=== PATIENT | male | born 1940 | race Caucasian/White ===

== ENCOUNTER 2016-11-17 | Outpatient (CLI) | payer MEDICARE, OTHER | END 2016-11-17 20:47 | disposition critical access hospital (66) | DX: R53.1 Weakness (principal) | CPT/HCPCS: A0425; A0427 ==

== ENCOUNTER 2016-11-17 20:56 | Emergency (ER) | payer MEDICARE, OTHER ==
[2016-11-17] MEDS ORDERED: SODIUM CHLORIDE 0.9% 1,000 ML IV ONE (21:15)
[2016-11-17] MEDS ORDERED: cefTRIAXone 1 GM in SODIUM CHLORIDE 0.9% MINIBAG 100 ML IV STA (23:06)
[2016-11-17] MEDS ORDERED: DEXAMETHASONE 10 MG/ML VIAL IVP STA (23:06)
[2016-11-17] MEDS ORDERED: ceFAZolin 1 GM VIAL ONE (23:17)
[2016-11-17] MEDS ORDERED: DEXAMETHASONE 10 MG/ML VIAL ONE (23:17)
[2016-11-17] MEDS ORDERED: cefTRIAXone 1 GM VIAL ONE (23:19)
== END 2016-11-18 00:59 | disposition home or self-care (01) ==
DX: E86.0 Dehydration (principal); H66.90 Otitis media, unspecified, unspecified ear; I10 Essential (primary) hypertension; E78.00 Pure hypercholesterolemia, unspecified; I25.10 Atherosclerotic heart disease of native coronary artery without angina pectoris

== ENCOUNTER 2017-03-20 09:28 | Outpatient (CLI) | payer MEDICARE, OTHER | END 2017-03-20 09:29 | disposition home or self-care (01) | LOC: LAB.WCP 09:28 | PROVIDERS: ATTEND Physician Assistant | DX: R39.9 Unspecified symptoms and signs involving the genitourinary system (principal) | CPT/HCPCS: 36415; 84153 ==

== ENCOUNTER 2017-07-07 09:03 | Outpatient (CLI) | payer MEDICARE, OTHER ==
[2017-07-07 14:13] LABS: BILIRUBIN,URINE NEGATIVE (NEGATIVE)
[2017-07-07 14:34] LABS: BASOPHILS % (AUTO) 0.4 %; EOSINOPHILS % (AUTO) 7.3 %; HCT - HEMATOCRIT 41.5 % (42.0-52.0); LYMPHOCYTES % (AUTO) 13.1 %; MEAN CORPUSCULAR HEMOGLOBIN 29.5 pg (27.0-31.0); MEAN CORPUSCULAR HGB CONC 33.6 g/dL (32.0-36.0); MEAN CORPUSCULAR VOLUME 87.8 fL (80.0-94.0); MEAN PLATELET VOLUME 9.8 fL (7.4-11.4); MONOCYTES % (AUTO) 8.2 %; RED BLOOD COUNT 4.73 10^6/uL (4.70-6.10); RED CELL DISTRIBUTION WIDTH 13.4 % (12.0-15.0); UNCORRECTED WHITE BLOOD COUNT 7.3 x10^3/uL; WHITE BLOOD COUNT 7.3 x10^3/uL (4.8-10.8)
[2017-07-07 14:40] LABS: BAND NEUTROPHILS % (MANUAL) 0 %
[2017-07-07 14:46] LABS: UR CULTURE IF IND NOT INDICATED; WBC,URINE 0-3 /HPF (0-3)
[2017-07-07 15:59] LABS: BASOPHILS % (MANUAL) 2 %; EOSINOPHILS % (MANUAL) 8 %; LYMPHOCYTES % (MANUAL) 13 %; NEUTROPHILS % (MANUAL) 73 %; NP AUTO DIFFERENTIAL? YES; NP MAN DIFFERENTIAL? NO; PLATELET ESTIMATE, MANUAL NORMAL (130-450,000) (NORMAL); PLATELET MORPHOLOGY NORMAL APPEARANCE (NORMAL); TOTAL CELLS COUNTED 100
[2017-07-07 17:03] LABS: ALBUMIN/GLOBULIN RATIO 1.6 (1.0-2.2); BILIRUBIN,TOTAL 0.9 mg/dL (0.2-1.0); CALCIUM 9.3 mg/dL (8.5-10.3); CREATININE 0.8 mg/dL (0.6-1.2); POTASSIUM 4.2 mmol/L (3.5-5.0)
== END 2017-07-07 09:04 | disposition home or self-care (01) ==
LOC: LAB.WCP 09:03
PROVIDERS: ATTEND Family Medicine
DX: R10.32 Left lower quadrant pain (principal); M54.9 Dorsalgia, unspecified
CPT/HCPCS: 36415; 80053; 81001; 83690; 85025; 87086

== ENCOUNTER 2017-07-14 07:35 | Outpatient (CLI) | payer MEDICARE, OTHER ==
[~2017-07-14 07:35] MED LIST: IOPAMIDOL-300 100 ML VIAL ONE; IOPAMIDOL-300 50 ML VIAL ONE
[2017-07-14] MEDS ORDERED: IOPAMIDOL-300 50 ML VIAL PO ONE (07:47)
[2017-07-14] MEDS ORDERED: IOPAMIDOL-300 100 ML VIAL IVP ONE (07:48)
--- NOTE | 2017-07-14 11:41 | CT Report ---
CT OF THE ABDOMEN AND PELVIS WITH CONTRAST: 07/14/2017 CLINICAL INDICATION: Chronic back pain, abdominal pain. TECHNIQUE: Axial CT images of the abdomen and pelvis were obtained with 100 mL of Isovue-300 intravenously as well as oral contrast. FINDINGS: Limited evaluation of the lung bases is unremarkable. ABDOMEN: The liver, spleen, pancreas, kidneys and adrenal glands are unremarkable. There is a small sliding hiatal hernia present. The gallbladder is not dilated. No bowel dilatation, free gas, or free fluid is present. No abdominal adenopathy is present. PELVIS: The pelvic organs appear unremarkable. No pelvic adenopathy or free fluid is present. There is a spinal stimulator pack in the posterior right soft tissues. The osseous structures demonstrate degenerative and postsurgical changes. IMPRESSION: NO EVIDENT ETIOLOGY FOR PATIENT'S ABDOMINAL PAIN. In accordance with CT protocol optimization, one or more of the following dose reduction techniques were utilized for this exam: automated exposure control, adjustment of mA and/or KV based on patient size, or use of iterative reconstructive technique. JOB #: [id number] EXT JOB #: [id number] [facility]
--- NOTE | 2017-07-14 11:41 | CT Report ---
CT LUMBAR SPINE WITHOUT CONTRAST: 07/14/2017 INDICATION: Chronic low back pain. TECHNIQUE: Axial CT images of the lumbar spine were reconstructed from CT of the abdomen and pelvis of the same day, with sagittal, coronal, and axial small field of view reconstructions performed. No previous CT of the lumbar spine is available for comparison. FINDINGS: The lumbar vertebral bodies demonstrate degenerative disk and facet disease, with degenera tive retrolisthesis of L2 on L3 by approximately 2 mm, L3 on L4 by approximately 2 mm. There is no e vidence of compression fracture. Postoperative changes are present at L5 posteriorly. The T12-L1 disk is unremarkable. At L1-2, there is broad-based disk and osteophyte, without significant spinal or foraminal narrowing. At L2-3, there is broad-based disc osteophyte, asymmetric to the right, producing right greater than left foraminal narrowing and moderate spinal stenosis. At L3-4, there is large broad-based disk osteophyte and facet hypertrophy, producing bilateral forami nal narrowing and moderate spinal stenosis. At L4-5, there is broad-based disc osteophyte and facet hypertrophy, producing bilateral foraminal na rrowing and moderate spinal stenosis. At L5-S1, there are postoperative changes of posterior decompression. Right worse than left foramina l narrowing is present, secondary to disk osteophyte. IMPRESSION: DEGENERATIVE CHANGES ABOVE. NO EVIDENCE OF FRACTURE. POSTOPERATIVE CHANGES AT L5-S1 . In accordance with CT protocol optimization, one or more of the following dose reduction techniques w ere utilized for this exam: automated exposure control, adjustment of mA and/or KV based on patient size, or use of iterative reconstructive technique. JOB #: [id number] EXT JOB #:[id number]
== END 2017-07-14 07:36 | disposition home or self-care (01) ==
LOC: DI 07:35
PROVIDERS: ATTEND Family Medicine
DX: M51.36 Other intervertebral disc degeneration, lumbar region (principal); M47.896 Other spondylosis, lumbar region; M43.16 Spondylolisthesis, lumbar region; R10.32 Left lower quadrant pain
CPT/HCPCS: 72131; 74177; Q9967

== ENCOUNTER 2017-08-13 09:04 | Outpatient (CLI) | payer MEDICARE, OTHER ==
[2017-08-13 13:03] LABS: ALBUMIN/GLOBULIN RATIO 1.6 (1.0-2.2); BILIRUBIN,TOTAL 0.7 mg/dL (0.2-1.0); CALCIUM 9.5 mg/dL (8.5-10.3); CREATININE 0.8 mg/dL (0.6-1.2); TOTAL PROTEIN 7.2 g/dL (6.7-8.2)
[2017-08-13 14:18] LABS: THYROID STIMULATING HORMONE 2.26 uIU/mL (0.34-5.60)
== END 2017-08-13 09:05 | disposition home or self-care (01) ==
LOC: LAB.WCP 09:04
PROVIDERS: ATTEND Family Medicine
DX: R73.01 Impaired fasting glucose (principal); I10 Essential (primary) hypertension; E03.9 Hypothyroidism, unspecified; M54.5 Low back pain
CPT/HCPCS: 36415; 80053; 82607; 84443

== ENCOUNTER 2017-09-23 14:10 | Emergency (ER) | payer MEDICARE, OTHER ==
--- NOTE | 2017-09-23 14:18 | ED Physician Documentation ---
PD HPI CHEST PAIN - Stated complaint Stated Complaint: CHEST PX - History obtained from History obtained from: Patient - History of Present Illness Timing - onset: How many weeks ago (3 weeks of progressively worsening symptoms with exertion and then easier fatigue and chest pressure with more minimal activity. Today with chest pressure at rest.) Timing - onset during: Rest (today), Light activity (for 3 weeks, progressively) Timing - duration: Minutes (discomfort has been resolving within few minutes of rest. Today the pressure remained after rest and has recurred even while resting.) Timing - details: Gradual onset, Still present, Intermittant Quality: Pressure, Tightness. No: Sharp, Tearing, Stabbing Location: Left chest Radiation: Left upper extremity Improved by: Rest Worsened by: Exertion Associated symptoms: General Weakness. No: Shortness of air, Diaphoresis, Nausea, Feeling faint / dizzy, Palpitations Similar symptoms before: Has not had sx before Recently seen: Not recently seen Review of Systems Constitutional: denies: Fever, Chills Nose: denies: Rhinorrhea / runny nose, Congestion Throat: denies: Sore throat Cardiac: reports: Chest pain / pressure, Pedal edema (mild ongoing). denies: Palpitations, Calf pain Respiratory: denies: Dyspnea, Cough, Wheezing GI: denies: Abdominal Pain, Nausea, Vomiting, Bloody / black stool : denies: Dysuria, Frequency Skin: denies: Rash, Lesions Neurologic: denies: Generalized weakness, Focal weakness, Numbness, Near syncope , Altered mental status Psychiatric: denies: Depressed, Insomnia Endocrine: denies: Weight loss, Easy bruising / bleeding Immunocompromised: denies: Immunocompromised PD PAST MEDICAL HISTORY - Past Medical History Cardiovascular: Hypertension, High cholesterol, Coronary artery disease Respiratory: Sleep apnea, CPAP use Neuro: None Endocrine/Autoimmune: HyPOthyroidism GI: GI bleed : None HEENT: None Psych: None Musculoskeletal: Chronic back pain Derm: None - Past Surgical History General: Colonoscopy Ortho: Knee replacement Neuro: Other - Present Medications Home Medications: Ambulatory Orders Medication Instructions Recorded Confirmed Atorvastatin Calcium 20 mg PO DAILY 02/19/13 09/23/17 Fluoxetine HCl 40 mg PO DAILY 02/19/13 09/23/17 Levothyroxine Sodium [Synthroid] 100 mcg PO DAILY 02/19/13 09/23/17 Losartan [Cozaar] 100 mg PO DAILY 02/19/13 09/23/17 Metoprolol Succinate [Toprol Xl] 50 mg PO BID 02/19/13 09/23/17 Felodipine [Plendil] 2.5 mg PO DAILY 08/04/13 09/23/17 Meloxicam 15 mg PO DAILY 08/22/17 09/23/17 Tamsulosin [Flomax] 0.4 mg PO DAILY 08/22/17 09/23/17 Sildenafil Citrate [Viagra] 1 tab PO PRN PRN 09/23/17 09/23/17 - Allergies Allergies/Adverse Reactions: Allergies Allergy/AdvReac Type Severity Reaction Status Date / Time No Known Drug Allergies Allergy Verified 12/24/15 16:18 - Living Situation Living Situation: reports: With spouse/s.o. Living Arrangement: reports: At home - Social History Does the pt smoke?: No Smoking Status: Never smoker Does the pt drink ETOH?: No Does the pt have substance abuse?: No - Family History Family history: denies: Aortic aneursym, Aortic dissection - Immunizations Immunizations are current?: Yes PD ED PE NORMAL - Vitals Vital signs reviewed: Yes - General General: Alert and oriented X 3, No acute distress, Well developed/nourished - HEENT HEENT: Moist mucous membranes, Pharynx benign - Neck Neck: Supple, no meningeal sign, No adenopathy, No JVD - Cardiac Cardiac: RRR, No murmur - Respiratory Respiratory: Clear bilaterally, Other (no chestwall tenderness) - Abdomen Abdomen: Soft, Non tender - Back Back: No CVA TTP - Derm Derm: Normal color, Warm and dry, No rash - Extremities Extremities: No deformity, No tenderness to palpate, Normal ROM s pain, No calf tenderness / cord, Other (1+ edema in both lower legs) - Neuro Neuro: Alert and oriented X 3, No motor deficit, Normal speech - Psych Psych: Normal mood, Normal affect Results - Vitals Vitals: Vital Signs - 24 hr 09/23/17 09/23/17 09/23/17 14:16 15:15 15:16 Temperature 36.4 C L Heart Rate 58 L 58 L 61 Respiratory 18 20 14 Rate Blood Pressure 141/71 H 133/73 H O2 Saturation 98 96 97 09/23/17 09/23/17 15:21 16:08 Temperature Heart Rate 60 58 L Respiratory 14 15 Rate Blood Pressure 113/75 118/87 H O2 Saturation 97 99 Oxygen O2 Source Room air - EKG (time done) 14:19 Rate: Rate (enter#) (56) Rhythm: Sinus bradycardia [place]: Normal Intervals: Normal MO QRS: Poor R wave progression Ischemia: Normal ST segments. No: ST elevation c/w ischemia, ST depression, T wave inversion - Labs Labs: Laboratory Tests 09/23/17 09/23/17 09/23/17 14:20 14:20 14:20 WBC 8.9 RBC 4.59 L Hgb 13.9 L Hct 40.5 L MCV 88.1 MCH 30.2 MCHC 34.3 RDW 12.9 Plt Count 204 MPV 9.2 Neut # 6.6 Lymph # 1.3 L [place] # 0.6 Eos # 0.4 Baso # 0.0 Absolute Nucleated RBC 0.00 Nucleated RBC % 0.0 Sodium 137 Potassium 4.4 Chloride 100 L Carbon Dioxide 26 Anion Gap 11.0 BUN 25 H Creatinine 0.8 Estimated GFR (MDRD) 94 Glucose 84 Calcium 9.6 Magnesium 1.6 L Total Bilirubin 0.7 AST 27 ALT 24 Alkaline Phosphatase 53 Troponin I < 0.04 B-Natriuretic Peptide Total Protein 7.3 Albumin 4.4 Globulin 2.9 Albumin/Globulin Ratio 1.5 Lipase 22 09/23/17 14:20 WBC RBC Hgb Hct MCV MCH MCHC RDW Plt Count MPV Neut # Lymph # [place] # Eos # Baso # Absolute Nucleated RBC Nucleated RBC % Sodium Potassium Chloride Carbon Dioxide Anion Gap BUN Creatinine Estimated GFR (MDRD) Glucose Calcium Magnesium Total Bilirubin AST ALT Alkaline Phosphatase Troponin I B-Natriuretic Peptide 44 Total Protein Albumin Globulin Albumin/Globulin Ratio Lipase - Rads (name of study) chest Radiology: Prelim report reviewed, EMP read contemporaneously (no acute process noted on xray.) PD MEDICAL DECISION MAKING - ED course Complexity details: reviewed results, re-evaluated patient (chest pressure resolved with NTG. ), considered differential (His symptoms sound very concerning for crescendo angina with now rest angina. His EKG does not show ischemic changes and his troponin is negative. However he is having progressive symptoms and now rest angina. We will treated as unstable angina with nitrates, heparin, aspirin. His heart rate is 56 and his blood pressure is reasonable so he does not need more beta blockers at this time. I think he needs cardiology assessment and will look at transferring him to an appropriate facility. The patient is agreeable to this.), d/w patient, d/w reservoir engineering consultant ( [facility] not [facility] beds available and these were patients first choices. He is agreeable to [facility]. [facility] do have beds available and I talked to Carla Nunez, provider there who accepts transfer. She agrees with current treatments.) Departure - Departure Condition: Stable Record reviewed to determine appropriate education?: Yes
[2017-09-23] MEDS ORDERED: ASPIRIN CHEW 81 MG TABLET PO STA ×2 (14:45→14:56)
[2017-09-23] MEDS ORDERED: NITROGLYCERIN 2% PASTE TOP STA (14:56)
[2017-09-23] MEDS ORDERED: NITROGLYCERIN SL 0.4 MG TABLET SL STA (14:56)
[2017-09-23] MEDS ORDERED: ACETAMINOPHEN 325 MG TABLET PO STA (14:57)
[2017-09-23 15:03] LABS: BASOPHILS % (AUTO) 0.5 %; EOSINOPHILS # (AUTO) 0.4 10^3/uL (0.0-0.7); EOSINOPHILS % (AUTO) 4.4 %; HCT - HEMATOCRIT 40.5 % (42.0-52.0); HGB - HEMOGLOBIN 13.9 g/dL (14.0-18.0); LYMPHOCYTES # (AUTO) 1.3 10^3/uL (1.5-3.5); LYMPHOCYTES % (AUTO) 14.3 %; MEAN CORPUSCULAR HEMOGLOBIN 30.2 pg (27.0-31.0); MEAN CORPUSCULAR HGB CONC 34.3 g/dL (32.0-36.0); MEAN CORPUSCULAR VOLUME 88.1 fL (80.0-94.0); MEAN PLATELET VOLUME 9.2 fL (7.4-11.4); MONOCYTES # (AUTO) 0.6 10^3/uL (0.0-1.0); MONOCYTES % (AUTO) 6.9 %; NEUTROPHILS # (AUTO) 6.6 10^3/uL (1.5-6.6); NEUTROPHILS % (AUTO) 73.9 %; RED BLOOD COUNT 4.59 10^6/uL (4.70-6.10); RED CELL DISTRIBUTION WIDTH 12.9 % (12.0-15.0); UNCORRECTED WHITE BLOOD COUNT 8.9 x10^3/uL; WHITE BLOOD COUNT 8.9 x10^3/uL (4.8-10.8)
[2017-09-23 15:13] LABS: ALBUMIN/GLOBULIN RATIO 1.5 (1.0-2.2); BILIRUBIN,TOTAL 0.7 mg/dL (0.2-1.0); CALCIUM 9.6 mg/dL (8.5-10.3); CREATININE 0.8 mg/dL (0.6-1.2); MAGNESIUM 1.6 mg/dL (1.7-2.8); POTASSIUM 4.4 mmol/L (3.5-5.0); TOTAL PROTEIN 7.3 g/dL (6.7-8.2)
[2017-09-23] MEDS ORDERED: NITROGLYCERIN 2% PASTE TOP ONE (15:14)
[2017-09-23] MEDS ORDERED: ASPIRIN CHEW 81 MG TABLET ONE (15:14)
[2017-09-23] MEDS ORDERED: ACETAMINOPHEN 325 MG TABLET PO ONE (15:14)
[2017-09-23] MEDS ORDERED: NITROGLYCERIN SL 0.4 MG TABLET SL ONE (15:14)
--- NOTE | 2017-09-23 15:24 | XRAY Preliminary Report ---
Exam: XR CHEST 1 VIEW IMPRESSION: 1. Thoracic epidural neurostimulator. 2. Stable, otherwise unremarkable exam. [facility] SITE ID: [id number]
--- NOTE | 2017-09-23 15:35 | XRAY Report ---
EXAM: CHEST RADIOGRAPHY EXAM DATE: 09/23/2017 03:09 PM. CLINICAL HISTORY: Chest pain. COMPARISON: 11/17/2016. TECHNIQUE: 1 view. FINDINGS: Lungs/Pleura: No focal opacities evident. No pleural effusion. No pneumothorax. Mediastinum: Within exam limitations, the cardiomediastinal contour is normal. Other: Stable epidural neurostimulator mid thoracic spine. Remote cervical spine fusion. IMPRESSION: 1. Thoracic epidural neurostimulator. 2. Stable, otherwise unremarkable exam. [facility] Referring Provider Line: [phone] SITE ID: [id number]
[2017-09-23] MEDS ORDERED: HEPARIN 5,000 UNIT/ML VIAL IVP STA (15:51)
[2017-09-23] MEDS ORDERED: HEPARIN 25,000 UNITS/500 ML NS 25,000 UNIT/500 ML BAG IV STA (15:51)
[2017-09-23] MEDS ORDERED: HEPARIN 5,000 UNIT/ML VIAL ONE (16:07)
[2017-09-23] MEDS ORDERED: HEPARIN 25,000 UNITS/500 ML NS 25,000 UNIT/500 ML BAG IV ONE (16:07)
[2017-09-23 17:22] VITALS: BP 129/69
== END 2017-09-23 17:31 | disposition short-term general hospital (02) ==
LOC: ED 14:10
DX: I25.110 Atherosclerotic heart disease of native coronary artery with unstable angina pectoris (principal); R00.1 Bradycardia, unspecified; I10 Essential (primary) hypertension
CPT/HCPCS: 36415; 71010; 80053; 83690; 83735; 83880; 84484; 85025; 93005; 96374; 96376; 99284; 99285; A9270

== ENCOUNTER 2017-09-23 17:35 | Outpatient (CLI) | payer MEDICARE, OTHER | END 2017-09-23 17:36 | disposition short-term general hospital (02) | LOC: EMS 17:35 | PROVIDERS: ATTEND Surgery | DX: R07.9 Chest pain, unspecified (principal) | CPT/HCPCS: A0170; A0425; A0426 ==

== ENCOUNTER 2017-10-30 13:55 | Outpatient (CLI) | payer MEDICARE, OTHER ==
--- NOTE | 2017-10-31 10:00 | CT Report ---
DATE OF SERVICE: 10/30/2017 CT BRAIN WITHOUT CONTRAST: 10/30/2017 CLINICAL HISTORY: History of brainstem stroke. COMPARISON: 06/19/2015. TECHNIQUE: Axial CT images of the brain were obtained without intravenous contrast. FINDINGS: There is a central hypodensity in the inferior brainstem, new from previous, likely representing the patient's previous brainstem stroke. Chronic ischemic changes are also seen in the periventricular white matter structures. There is no evidence of acute hemorrhage, mass effect, or midline shift. The basilar cisterns are patent. The visualized orbital contents and paranasal sinuses are unremarkable. IMPRESSION: HYPODENSITY IN THE CENTRAL INFERIOR BRAINSTEM, LIKELY REPRESENTING THE SITE OF PREVIOUS BRAINSTEM STROKE. CHRONIC ISCHEMIC CHANGES IN THE PERIVENTRICULAR WHITE MATTER STRUCTURES. NO EVIDENCE OF ACUTE HEMORRHAGE OR MASS EFFECT. In accordance with CT protocol optimization, one or more of the following dose reduction techniques were utilized for this exam: automated exposure control, adjustment of mA and/or KV based on patient size, or use of iterative reconstructive technique. TD: 10/31/2017 10:59
== END 2017-10-30 13:56 | disposition home or self-care (01) ==
LOC: DI 13:55
PROVIDERS: ATTEND Family Medicine
DX: I63.9 Cerebral infarction, unspecified (principal); I67.82 Cerebral ischemia
CPT/HCPCS: 70450

== ENCOUNTER 2017-11-13 07:41 | Outpatient (CLI) | payer MEDICARE, OTHER | END 2017-11-13 07:42 | disposition critical access hospital (66) | LOC: EMS 07:41 | PROVIDERS: ATTEND Surgery | DX: R53.1 Weakness (principal); R30.9 Painful micturition, unspecified | CPT/HCPCS: A0425; A0429 ==

== ENCOUNTER 2017-11-13 07:51 | Emergency (ER) | payer MEDICARE, OTHER ==
--- NOTE | 2017-11-13 08:13 | ED Physician Documentation ---
PD HPI ALTERED MENTAL STATUS - Stated complaint Stated Complaint: WEAKNESS - Chief complaint Chief Complaint: Neuro - History obtained from History obtained from: Patient, Family, EMS - History of Present Illness Timing - onset: How many days ago (2) Timing - duration: Days (has had couple days of dysuria and frequency, with today having general weakness upon awakening and could not get out of bed.) Timing - details: Gradual onset Quality / character: Other (general weakness; was able to talk okay. No focal weakness noted by patient nor .) Associated symptoms: Urinary sx. No: Fever, Headache, Dyspnea, Cough Contributing factors: No: Anticoagulated, Recent med change Basline status: Alert and oriented X 3, Ambulatory, Cane Similar symptoms before: Has not had sx before Recently seen: Not recently seen Review of Systems Ten Systems: 10 systems reviewed and negative Constitutional: denies: Fever Nose: denies: Rhinorrhea / runny nose, Congestion Throat: denies: Sore throat Cardiac: denies: Chest pain / pressure, Palpitations Respiratory: denies: Dyspnea, Cough GI: denies: Abdominal Pain, Nausea, Vomiting, Diarrhea : reports: Dysuria, Frequency, Incontinent (which is unusual for him, mainly he had to go quickly and could not hold it to get to bathroom). denies: Hematuria, Testicular pain Skin: denies: Rash, Lesions PD PAST MEDICAL HISTORY - Past Medical History Cardiovascular: Hypertension, High cholesterol, Coronary artery disease Respiratory: Sleep apnea, CPAP use Neuro: None Endocrine/Autoimmune: HyPOthyroidism GI: GI bleed : None HEENT: None Psych: None Musculoskeletal: Chronic back pain Derm: None - Past Surgical History Past Surgical History: Yes General: Colonoscopy Ortho: Knee replacement Neuro: Other - Present Medications Home Medications: Ambulatory Orders Medication Instructions Recorded Confirmed Atorvastatin Calcium 20 mg PO DAILY 02/19/13 11/13/17 Fluoxetine HCl 40 mg PO DAILY 02/19/13 11/13/17 Levothyroxine Sodium [Synthroid] 100 mcg PO DAILY 02/19/13 11/13/17 Losartan [Cozaar] 100 mg PO DAILY 02/19/13 11/13/17 Metoprolol Succinate [Toprol Xl] 50 mg PO BID 02/19/13 11/13/17 Felodipine [Plendil] 2.5 mg PO DAILY 08/04/13 11/13/17 Meloxicam 15 mg PO DAILY 08/22/17 11/13/17 Tamsulosin [Flomax] 0.4 mg PO DAILY 08/22/17 11/13/17 Sildenafil Citrate [Viagra] 1 tab PO PRN PRN 09/23/17 11/13/17 Phenazopyridine [Pyridium] 100 mg PO TID PRN #15 tablet 11/13/17 Sulfamethox/Trimeth 800/160 1 each PO BID #14 tablet 11/13/17 [Bactrim Ds 800/160] - Allergies Allergies/Adverse Reactions: Allergies Allergy/AdvReac Type Severity Reaction Status Date / Time No Known Drug Allergies Allergy Verified 12/24/15 16:18 - Social History Does the pt smoke?: No Smoking Status: Never smoker Does the pt drink ETOH?: No Does the pt have substance abuse?: No - Immunizations Immunizations are current?: Yes - POLST Patient has POLST: No PD ED PE NORMAL - Vitals Vital signs reviewed: Yes - General General: Alert and oriented X 3, No acute distress, Well developed/nourished - HEENT HEENT: Pharynx benign - Neck Neck: Supple, no meningeal sign, No adenopathy - Cardiac Cardiac: RRR, No murmur - Respiratory Respiratory: Clear bilaterally - Abdomen Abdomen: Normal bowel sounds, Soft, Non tender, Non distended, No organomegaly - Male Male : Other (no external sores. Scrotum not tender. ) Results - Vitals Vitals: Oxygen O2 Source Room air - Labs Labs: Laboratory Tests 11/13/17 11/13/17 11/13/17 07:58 08:53 08:53 WBC 16.2 H RBC 4.58 L Hgb 13.7 L Hct 40.3 L MCV 88.1 MCH 30.0 MCHC 34.0 RDW 13.2 Plt Count 202 MPV 8.1 Neut # 14.5 H Lymph # 0.3 L [place] # 1.3 H Eos # 0.0 Baso # 0.0 Absolute Nucleated RBC 0.00 Nucleated RBC % 0.0 Sodium 138 Potassium 4.2 Chloride 103 Carbon Dioxide 25 Anion Gap 10.0 BUN 14 Creatinine 1.0 Estimated GFR (MDRD) 73 L Glucose 133 H Lactic Acid Calcium 9.4 Magnesium 1.6 L Total Bilirubin 0.8 AST 20 ALT 21 Alkaline Phosphatase 79 Total Protein 7.2 Albumin 4.2 Globulin 3.0 Albumin/Globulin Ratio 1.4 Lipase 22 TSH Urine Color YELLOW Urine Clarity CLEAR Urine pH 6.0 Ur Specific [place] 1.015 Urine Protein NEGATIVE Urine Glucose (UA) NEGATIVE Urine Ketones NEGATIVE Urine Occult Blood LARGE H Urine Nitrite NEGATIVE Urine Bilirubin NEGATIVE Urine Urobilinogen 0.2 (NORMAL) Ur Leukocyte Esterase NEGATIVE Urine RBC 11-25 H Urine WBC 0-3 Ur Squamous Epith Cells RARE Squamous Urine Bacteria Rare Ur Microscopic Review INDICATED Urine Culture Comments NOT INDICATED 11/13/17 11/13/17 08:53 08:53 WBC RBC Hgb Hct MCV MCH MCHC RDW Plt Count MPV Neut # Lymph # [place] # Eos # Baso # Absolute Nucleated RBC Nucleated RBC % Sodium Potassium Chloride Carbon Dioxide Anion Gap BUN Creatinine Estimated GFR (MDRD) Glucose Lactic Acid 1.6 Calcium Magnesium Total Bilirubin AST ALT Alkaline Phosphatase Total Protein Albumin Globulin Albumin/Globulin Ratio Lipase TSH 3.85 Urine Color Urine Clarity Urine pH Ur Specific [place] Urine Protein Urine Glucose (UA) Urine Ketones Urine Occult Blood Urine Nitrite Urine Bilirubin Urine Urobilinogen Ur Leukocyte Esterase Urine RBC Urine WBC Ur Squamous Epith Cells Urine Bacteria Ur Microscopic Review Urine Culture Comments PD MEDICAL DECISION MAKING - ED course Complexity details: considered differential (bladder scanner with only 20 ml so is emptying okay. Suggestive of bladder spasms. Has dysuria. Presume UTI even though UA not that bad. Consider prostate as well. He is up and ambulatory here in ED so weakness not too bad. ), d/w patient Departure - Departure Disposition: 01 Home, Self Care Clinical Impression: Dysuria, General weakness, Urethritis Condition: Stable Record reviewed to determine appropriate education?: Yes Instructions: ED UTI Cystitis Male Prescriptions: Phenazopyridine [Pyridium] 100 mg PO TID PRN #15 tablet PRN Reason: Pain Sulfamethox/Trimeth 800/160 [Bactrim Ds 800/160] 1 each PO BID #14 tablet Comments: The urinary frequency and discomfort suggests a UTI, though your urine does not look that bad. It could be prostate infection instead. Take Bactrim twice daily for a week for that. the phenazopyridine is used for urinary discomfort as needed. The urine culture will result in 2-3 days and be more conclusive of UTI. Drink adequate fluids. Meds otherwise the same. Recheck if not improving generally over the next couple of days. Discharge Date/Time: 11/13/17 10:43
[2017-11-13 08:28] LABS: BILIRUBIN,URINE NEGATIVE (NEGATIVE); GLUCOSE, URINE (UA) NEGATIVE (NEGATIVE); KETONES,URINE (UA) NEGATIVE (NEGATIVE); LEUKOCYTE ESTERASE, URINE NEGATIVE (NEGATIVE); NITRITE,URINE NEGATIVE (NEGATIVE); OCCULT BLOOD,URINE LARGE (NEGATIVE); PROTEIN,URINE NEGATIVE (NEGATIVE); UROBILINOGEN,URINE 0.2 (NORMAL) E.U./dL (NORMAL)
[2017-11-13 08:30] LABS: CLARITY,URINE CLEAR (CLEAR)
[2017-11-13] MEDS ORDERED: SODIUM CHLORIDE 0.9% 1,000 ML IV ONE (08:30)
[2017-11-13] MEDS ORDERED: KETOROLAC 60 MG/2 ML VIAL IVP STA (08:31)
[2017-11-13 08:38] LABS: BACTERIA,URINE Rare /HPF (None Seen); SQUAMOUS EPITHELIAL CELL,UR RARE Squamous (<= Few)
[2017-11-13 09:01] LABS: BASOPHILS % (AUTO) 0.2 %; EOSINOPHILS % (AUTO) 0.2 %; HGB - HEMOGLOBIN 13.7 g/dL (14.0-18.0); LYMPHOCYTES # (AUTO) 0.3 10^3/uL (1.5-3.5); LYMPHOCYTES % (AUTO) 1.9 %; MEAN CORPUSCULAR VOLUME 88.1 fL (80.0-94.0); MEAN PLATELET VOLUME 8.1 fL (7.4-11.4); MONOCYTES # (AUTO) 1.3 10^3/uL (0.0-1.0); MONOCYTES % (AUTO) 8.1 %; NEUTROPHILS # (AUTO) 14.5 10^3/uL (1.5-6.6); NEUTROPHILS % (AUTO) 89.6 %; PLT - PLATELET COUNT 202 10^3/uL (130-450); RED BLOOD COUNT 4.58 10^6/uL (4.70-6.10); RED CELL DISTRIBUTION WIDTH 13.2 % (12.0-15.0); WHITE BLOOD COUNT 16.2 x10^3/uL (4.8-10.8)
[2017-11-13 09:16] LABS: ALBUMIN 4.2 g/dL (3.2-5.5); ALBUMIN/GLOBULIN RATIO 1.4 (1.0-2.2); BILIRUBIN,TOTAL 0.8 mg/dL (0.2-1.0); CALCIUM 9.4 mg/dL (8.5-10.3); MAGNESIUM 1.6 mg/dL (1.7-2.8); TOTAL PROTEIN 7.2 g/dL (6.7-8.2)
[2017-11-13] MEDS ORDERED: PHENAZOPYRIDINE 100 MG TABLET PO STA (09:31)
[2017-11-13] MEDS ORDERED: cefTRIAXone 1 GM in SODIUM CHLORIDE 0.9% MINIBAG 100 ML IV STA (09:31)
[2017-11-13 10:28] VITALS: BP 116/61
== END 2017-11-13 10:43 | disposition home or self-care (01) ==
LOC: EDUNIT# → ED 07:51
DX: N34.2 Other urethritis (principal); R30.0 Dysuria; R53.1 Weakness; I10 Essential (primary) hypertension; E78.00 Pure hypercholesterolemia, unspecified; I25.10 Atherosclerotic heart disease of native coronary artery without angina pectoris; G47.30 Sleep apnea, unspecified; E03.9 Hypothyroidism, unspecified
CPT/HCPCS: 36415; 51798; 80053; 81001; 83605; 83690; 83735; 84443; 85025; 87077; 87086; 87181; 96361; 96365; 96375; 99283; 99284; A9270; 81003; 96374

== ENCOUNTER 2017-12-09 09:30 | Outpatient (CLI) | payer MEDICARE, OTHER ==
[2017-12-09 13:26] LABS: BUN - BLOOD UREA NITROGEN 17 mg/dL (6-20); CALCIUM 9.3 mg/dL (8.5-10.3); CARBON DIOXIDE - CO2 26 mmol/L (21-32); CHLORIDE 103 mmol/L (101-111); CHOL/HDL RATIO 4.3 (<5.0); CHOLESTEROL 171 mg/dL; CREATININE 0.9 mg/dL (0.6-1.2); GFR - MDRD 82 (>89); GLUCOSE 117 mg/dL (70-100); HDL CHOLESTEROL 40 mg/dL; LDL CHOLESTEROL,CALCULATED 113 mg/dL; LDL/HDL RATIO 2.8 (<3.6); SODIUM 137 mmol/L (135-145); VLDL CHOLESTEROL 18 mg/dL
== END 2017-12-09 09:31 | disposition home or self-care (01) ==
LOC: LAB.WCP 09:30
PROVIDERS: ATTEND Family Medicine
DX: I10 Essential (primary) hypertension (principal); I25.810 Atherosclerosis of coronary artery bypass graft(s) without angina pectoris
CPT/HCPCS: 36415; 80048; 80061; 83721

== ENCOUNTER 2017-12-25 16:05 | Outpatient (CLI) | payer MEDICARE, OTHER | END 2017-12-25 16:06 | disposition home or self-care (01) | LOC: LAB.R 16:05 | PROVIDERS: ATTEND Family Medicine | DX: R35.0 Frequency of micturition (principal); Z12.5 Encounter for screening for malignant neoplasm of prostate | CPT/HCPCS: 87086; G0103; 84153 ==

== ENCOUNTER 2018-01-07 15:18 | Outpatient (CLI) | payer MEDICARE, OTHER ==
--- NOTE | 2018-01-12 14:29 | Ultrasound Report ---
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 TECHNIQUE: Real-time sonographic vascular imaging was performed by the explosive ordnance manager through the carotid arteries utilizing both color-flow and Doppler spectral analysis. Multiple group sales representative static images were saved for review. RIGHT Vessel PSV cm/sec EDV cm/sec ICA/CCA RSV Ratio Degree of Stenosis Plaque Estimate % RCCA Prox 90 -- -- RCCA Dist 83 8 -- RECA 138 -- -- RT BULB 62 9 0.75 OTONIEL Prox 85 20 1.02 OTONIEL Mid 63 18 0.76 OTONIEL Dist 61 14 0.73 RVA 45 -- -- RVA flow direction: Antegrade LEFT Vessel PSV cm/sec EDV cm/sec ICA/CCA RSV Ratio Degree of Stenosis Plaque Estimate % LCCA Prox 99 -- -- LCCA Dist 91 11 -- LECA 131 -- -- LFT BULB 95 12 1.04 LICA Prox 104 13 1.14 LICA Mid 72 20 0.79 LICA Dist 74 17 0.81 LVA 29 -- -- LVA flow direction: Antegrade Velocity criteria are extrapolated from diameter data as defined by the Society of Radiologists in Ultrasound Consensus Conference Radiology 2003; 229; 340-346. Degree of Stenosis % ICA PSV cm/sec ICA EDV cm/sec ICA/CCA PSV Ratio Plaque Estimate % Normal < 125 < 40 < 2.0 None <50 < 125 < 40 < 2.0 < 50 50-69 125-130 40-100 2.0-4.0 >/=50 >/=70 but less than near occlusion > 230 > 100 > 4.0 >/=50 Near occlusion High, low or undetectable Variable Variable Visible Total occlusion Undetectable Not applicable Not applicable No detectable lumen FINDINGS RIGHT: There is mild plaquing in the right carotid bifurcation, without evidence of a focal hemodynamically significant stenosis. LEFT: There is mild plaquing in the left carotid bifurcation, without evidence of a focal hemodynamically significant stenosis. The vertebral arteries demonstrate antegrade flow bilaterally. IMPRESSION: MILD PLAQUING BILATERALLY, BUT NO EVIDENCE OF A FOCAL HEMODYNAMICALLY SIGNIFICANT CAROTID STENOSIS. TD: 01/08/2018 10:27 [facility]
== END 2018-01-07 15:19 | disposition home or self-care (01) ==
LOC: DI 15:18
PROVIDERS: ATTEND Ophthalmology
DX: H34.232 Retinal artery branch occlusion, left eye (principal)
CPT/HCPCS: 93880

== ENCOUNTER 2018-03-30 08:00 | Outpatient (CLI) | payer MEDICARE, OTHER ==
[2018-03-30 13:58] LABS: HB2 TOTAL 15.4 g/dL; HEMOGLOBIN A1C 0.51 g/dL; HEMOGLOBIN A1C % 5.2 % (4.6-6.2)
[2018-03-30 14:11] LABS: BUN - BLOOD UREA NITROGEN 12 mg/dL (6-20); CALCIUM 8.9 mg/dL (8.5-10.3); CARBON DIOXIDE - CO2 27 mmol/L (21-32); CHLORIDE 107 mmol/L (101-111); CHOL/HDL RATIO 3.7 (<5.0); CHOLESTEROL 147 mg/dL; CREATININE 0.8 mg/dL (0.6-1.2); GFR - MDRD 94 (>89); GLUCOSE 111 mg/dL (70-100); HDL CHOLESTEROL 40 mg/dL; LDL CHOLESTEROL,CALCULATED 87 mg/dL; LDL/HDL RATIO 2.2 (<3.6); SODIUM 140 mmol/L (135-145); VLDL CHOLESTEROL 20 mg/dL
== END 2018-03-30 08:01 | disposition home or self-care (01) ==
LOC: LAB.WCP 08:00
PROVIDERS: ATTEND Family Medicine
DX: I25.810 Atherosclerosis of coronary artery bypass graft(s) without angina pectoris (principal); R73.01 Impaired fasting glucose; I10 Essential (primary) hypertension; E03.9 Hypothyroidism, unspecified
CPT/HCPCS: 36415; 80048; 80061; 83036; 83721; 84443

== ENCOUNTER 2018-04-06 09:22 | Outpatient (CLI) | payer MEDICARE, OTHER | END 2018-04-06 09:23 | LOC: LAB.WCP 09:22 | PROVIDERS: ATTEND Family Medicine | DX: E29.1 Testicular hypofunction (principal); R97.20 Elevated prostate specific antigen [PSA] | CPT/HCPCS: 36415; 84403 ==

== ENCOUNTER 2018-04-27 07:52 | Outpatient (CLI) | payer MEDICARE, OTHER | END 2018-04-27 07:53 | disposition home or self-care (01) | LOC: LAB.WCP 07:52 | PROVIDERS: ATTEND Family Medicine | DX: E29.1 Testicular hypofunction (principal); R97.20 Elevated prostate specific antigen [PSA] | CPT/HCPCS: 36415; 84403 ==

== ENCOUNTER 2018-05-26 08:20 | Outpatient (CLI) | payer MEDICARE, OTHER | END 2018-05-26 08:21 | disposition home or self-care (01) | LOC: LAB.WCP 08:20 | PROVIDERS: ATTEND Family Medicine | DX: E29.1 Testicular hypofunction (principal) | CPT/HCPCS: 36415; 84403 ==

== ENCOUNTER 2018-05-26 08:58 | Outpatient (CLI) | payer MEDICARE, OTHER | END 2018-05-26 08:59 | disposition home or self-care (01) | LOC: SC 08:58 | PROVIDERS: ATTEND Internal Medicine Pulmonary Disease | DX: G47.33 Obstructive sleep apnea (adult) (pediatric) (principal); E29.1 Testicular hypofunction | CPT/HCPCS: 36415; 84403; 99203; G0463; 99212 ==

== ENCOUNTER 2019-06-09 09:55 | Outpatient (CLI) | payer MEDICARE, OTHER ==
--- NOTE | 2019-06-09 11:09 | SLEEP CARE CONSULTATION ---
Information from patient questionnaire entered by Tessy Conroy. I have reviewed and concur with the information entered by Tessy Conroy. This document represents the service I personally performed and the decisions made by me, Sarah Cain, RN, MSN, FILING AND POLISHING SUPERVISOR. History of Present Illness Previous diagnosis: Moderate, Obstructive Sleep Apnea-Hypopnea Syndrome AHI: 15.8 Reason for CPAP/BiPAP follow up: annual Equipment type: CPAP Equipment obtained from: [place] Mask style: Nasal (Dreamwear nasal mask) Mask brand: Respironics Backup mask available: No (He is advised to keep current mask when replaced for spare. ) Last cushion change: 2 days ago Prior sleep studies: Yes Year and Where: 2010 here CPAP Compliance Data - Data Reviewed with Patient Average duration of nightly device use: 9.6 Compliance rate %: 100 (180 days) Current pressure setting (cmH2O): 12 Humidity settin Heated hose settin Average residual AHI: 5.9 Central apnea: 0.6 Obstructive apnea: 1.4 Hypopnea: 3.9 Average large leak: 20 mins 30 secs Subjective Patient concerns: reports: air blowing in eyes (a few times months ), mask leak noise (when sleeps on his side. Only awakening occasionally. ), nasal congestion (chronic but does not interferre with CPAP use. ), dry mouth, nose, throat (dry throat with and without CPAP use. He tried a chinstrap but unable to sleep with it. ). denies: aerophagia, mask discomfort, condensation in mask/hose, epistaxis Observed to snore while using device: No Current pressure setting perceived as: comfortable On therapy, patient: reports: sleeping better, awakening more refreshed, being more awake and alert during the day, more rested overall. denies: drowsiness while driving Initial [place] Sleepiness Scale score: 8 Current [place] Sleepiness Scale score: 6 Allergies and Home Medications Known drug allergies: Yes (Ambien - sleep walking) Drug allergies reviewed: Yes Home medication list reviewed: Yes Allergy and home medication list: Multivitamins Cap one daily Prozac 40mg vcap one daily Lipitor 40mg tab one daily at bedtime Synthroid 100mcg tab one daily Metoprolol Tartrate 25mg tab twice daily Tamsulosin HCL 0.4mg cap one daily Viagra 100mg tab - 1 one hour before activity Tylenol 325mg tab two three times daily prn Docusate Sodium 100mg cap one twice daily prn Losartan Potassium 100mg tab one daily in the morning Plavix 75mg tab one daily Androgel Pump 20-25mg/act transderm gel Apply two pumps as directed daily Review of Systems Review of systems same as previous: No (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 ) Physical Exam Blood Pressure: 138/60 Cuff size: long Heart Rate: 55 O2 Saturation: 97 Height: 5 ft 9.5 in Weight (kg): 104.78 kg Body Mass Index: 33.6 BMI Classification: Class 1 Impression and Plan 1. Obstructive Sleep Apnea-Hypopnea Syndrome, moderate, with good treatment compliance and slightly elevated residual. On CPAP therapy, the patient has better sleep quality and is more rested overall. For the residual AHI which is intermittently elevated I will increase his autoCPAP to [id number]. I advised patient to contact me if the pressure change is uncomfortable. For nasal congestion, he can increase humidity. He was also advised to use the sample saline nasal spray prior to CPAP to clear nasal passages of dried secretions and adhering allergans and his prescriptive nasal spray for better medication adherence. In addition he was advised to shower at night to wash off body allergens and facilitate nasal drainage. To reduce mask leaks when sleeping on his side, he was shown a CPAP pillow that can be bought online for about $60 or other style. Patient's apnea severity and rationale for treatment to reduce apnea, improve sleep quality and reduce cardiovascular and cerebrovascular events was reviewed. I also reviewed the benefit of consistent device use of CPAP for hypertension, cardiac disease, depression/anxiety. * Change CPAP pressure to 12-14 cmH2O * Implement methods to reduce nasal congestion. * consider CPAP pillow. * Notify me if snoring with mask or feeling that the pressure is too much or too little * Attempt to lose weight * Return for follow up in 1year, or sooner if concerns arise I spent 100% of this 30 minute visit face to face with the patient with greater than 50% of this was spent time counseling the patient and coordination of care.
[2019-06-09 11:10] VITALS: BP 138/60
== END 2019-06-09 09:56 | disposition home or self-care (01) ==
LOC: SC 09:55
PROVIDERS: ATTEND Nurse Practitioner Family
DX: G47.33 Obstructive sleep apnea (adult) (pediatric) (principal)
CPT/HCPCS: 99214; G0463; 99212

== ENCOUNTER 2019-11-20 07:49 | Emergency (ER) | payer MEDICARE ==
--- NOTE | 2019-11-20 08:04 | ED Physician Documentation ---
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 Walks with cane. He lost balance and struck forehead on edge of railroad tie door stop.) Where head injury occurred: Home Timing - onset: Today Location of injury: Front (right forehead) Quality of pain: Aching Associated symptoms: No: LOC, AMS, Nausea / vomiting, Neck pain Contributing factors: Anticoagulated (Plavix) Recently seen: Not recently seen Review of Systems Constitutional: denies: Fever Eyes: denies: Loss of vision, Decreased vision, Irritation Nose: denies: Rhinorrhea / runny nose, Congestion Throat: denies: Sore throat Cardiac: denies: Chest pain / pressure Respiratory: denies: Cough GI: denies: Nausea, Vomiting Neurologic: denies: Altered mental status, Headache PD PAST MEDICAL HISTORY - Past Medical History Cardiovascular: Hypertension, High cholesterol, Coronary artery disease Respiratory: Sleep apnea, CPAP use Endocrine/Autoimmune: HyPOthyroidism GI: GI bleed : None HEENT: None Psych: None Musculoskeletal: Chronic back pain Derm: None - Past Surgical History Past Surgical History: Yes General: Colonoscopy Ortho: Knee replacement Neuro: Other - Present Medications Home Medications: Ambulatory Orders Medication Instructions Recorded Confirmed Atorvastatin Calcium 20 mg PO DAILY 02/19/13 11/13/17 Fluoxetine HCl 40 mg PO DAILY 02/19/13 11/13/17 Levothyroxine Sodium [Synthroid] 100 mcg PO DAILY 02/19/13 11/13/17 Losartan [Cozaar] 100 mg PO DAILY 02/19/13 11/13/17 Metoprolol Succinate [Toprol Xl] 50 mg PO BID 02/19/13 11/13/17 Felodipine [Plendil] 2.5 mg PO DAILY 08/04/13 11/13/17 Meloxicam 15 mg PO DAILY 08/22/17 11/13/17 Tamsulosin [Flomax] 0.4 mg PO DAILY 08/22/17 11/13/17 Sildenafil Citrate [Viagra] 1 tab PO PRN PRN 09/23/17 11/13/17 Phenazopyridine [Pyridium] 100 mg PO TID PRN #15 tablet 01/25/18 Sulfamethox/Trimeth 800/160 1 each PO BID #14 tablet 11/13/17 [Bactrim Ds 800/160] - Allergies Allergies/Adverse Reactions: Allergies Allergy/AdvReac Type Severity Reaction Status Date / Time No Known Drug Allergies Allergy Verified 11/20/19 08:00 - Social History Does the pt smoke?: No Smoking Status: Never smoker Does the pt drink ETOH?: No Does the pt have substance abuse?: No - Immunizations Immunizations are current?: Yes - POLST Patient has POLST: No PD ED PE NORMAL - Vitals Vital signs reviewed: Yes - General General: Alert and oriented X 3, No acute distress, Well developed/nourished - HEENT HEENT: PERRL, EOMI, Other (right forehead with horizontal 3 cm laceration through skin. Able to wrinkle forehead. normal sensation above the lac. No FB. No active bleeding. 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 No CT evidence of acute infarction.), See rad report Procedures - Laceration (location) right forehead Length in cm: 3 Wound type: Linear, Into subcut fat, Clean Neurovascular status: Sensory intact, Motor intact Anesthesia: Lidocaine 1% with epi Wound Preparation: Wound explored, To the base, Wound edges modified. No: FB identified Deep layer closure: Vicryl, size #-0 - enter number (5), # sutures - enter number (3) Skin layer closure: Nylon, Running, Size #-0 - enter number (6), Sutures - enter # (14) Other: Patient tolerated well, No complications, Neurovascular intact, Tetanus UTD Complexity: Intermediate PD MEDICAL DECISION MAKING - ED course Complexity details: reviewed results (no bleeding on head CT), considered differential, d/w patient Departure - Departure Disposition: 01 Home, Self Care Clinical Impression: Accidental fall Qualifiers: Encounter type: initial encounter Qualified Code(s): W19.XXXA - Unspecified fall, initial encounter Forehead laceration Qualifiers: Encounter type: initial encounter Qualified Code(s): S01.81XA - Laceration without foreign body of other part of head, initial encounter Condition: Stable Record reviewed to determine appropriate education?: Yes Instructions: ED Laceration Facial Sutr Tape Follow-Up: OMAR GARCIA MD [Primary Care Provider] - Comments: It is okay to wash and shower. Clean off the wound twice a day with soap and water, or peroxide and water. Apply some antibiotic ointment to it to keep it moist. Also to watch for signs of infection such as purulence, redness or increasing pain. Return to your primary care or the ER at the specified time for suture removal. Suture removal 7 to 8 days. Discharge Date/Time: 11/20/19 10:18
[2019-11-20] MEDS ORDERED: LIDOCAINE-EPINEPH-TETRACAINE 3 ML SYRINGE TOP STA (08:13)
--- NOTE | 2019-11-20 08:48 | CT Report ---
Reason: fall, struck right periorbital; on Plavix Procedure Date: 11/20/2019 Accession Number: [id number] / [id number] Procedure: CT - HEAD WO CPT Code: Final Report FULL RESULT: EXAM: CT HEAD EXAM DATE: 11/20/2019 08:37 AM. CLINICAL HISTORY: Fall, struck right periorbital; on Plavix. COMPARISON: HEAD W/O 10/30/2017 2:05 PM. TECHNIQUE: Multiaxial CT images were obtained from the foramen magnum to the vertex. Reformats: Sagittal and coronal. IV contrast: None. In accordance with CT protocol optimization, one or more of the following dose reduction techniques were utilized for this exam: automated exposure control, adjustment of mA and/or KV based on patient size, or use of iterative reconstructive technique. FINDINGS: Parenchyma: No intraparenchymal hemorrhage. No evidence of mass, midline shift, or CT findings of acute infarction. Katz-white differentiation is distinct. Diffuse prominent chronic microangiopathic white matter changes are evident. Extraaxial Spaces: Normal for age. No subdural or epidural collections identified. Ventricles: The ventricles and cortical sulci are enlarged, consistent with age-related tissue loss. Sinuses and orbits: Imaged paranasal sinuses, orbits, and mastoids show no significant abnormality. Bones: No evidence of acute fracture or calvarial defect. Old nasal bone fracture. Other: None. IMPRESSION: Generalized age-related cortical atrophic changes without evidence of acute intracranial abnormality. No intracranial hemorrhage. RADIA
[2019-11-20 09:17] VITALS: BP 131/65
== END 2019-11-20 10:18 | disposition home or self-care (01) ==
LOC: ED 07:49
DX: S01.81XA Laceration without foreign body of other part of head, initial encounter (principal); W01.198A Fall on same level from slipping, tripping and stumbling with subsequent striking against other object, initial encounter; Y93.01 Activity, walking, marching and hiking; Y92.009 Unspecified place in unspecified non-institutional (private) residence as the place of occurrence of the external cause; Z79.02 Long term (current) use of antithrombotics/antiplatelets; I10 Essential (primary) hypertension
CPT/HCPCS: 12013; 12052; 70450; 99284

== ENCOUNTER 2020-02-08 13:32 | Outpatient (CLI) | payer MEDICARE ==
--- NOTE | 2020-02-10 03:30 | XRAY Report ---
Reason: LOW BACK PAIN Procedure Date: 02/08/2020 Accession Number: [id number] / [id number] Procedure: XR - Lumbar Spine 2 View CPT Code: Final Report FULL RESULT: EXAM: LUMBOSACRAL SPINE RADIOGRAPHY EXAM DATE: 02/08/2020 01:36 PM. CLINICAL HISTORY: LOW BACK PAIN. COMPARISONS: CT LUMBAR SPINE W/O 07/14/2017 8:50 AM. TECHNIQUE: 2 views. FINDINGS: Alignment: Normal. No spondylolisthesis or scoliosis. Bones: Five rei-ifd-mxamgia lumbar vertebral bodies are present. No fractures or bone lesions. Disks: Moderate to severe multilevel disk space narrowing is present throughout the lumbar spine. Interval worsening of disk space narrowing at L2-L3 with diskogenic sclerosis now evident. Facets: Facet arthropathy at L3-L4, L4-L5 and L5-S1. Sacroiliac Joints: Unremarkable. Soft Tissues: Spinal cord stimulator device in position. Tip not imaged. IMPRESSION: 1. Moderate to severe multilevel disk space narrowing is present throughout the lumbar spine. Interval worsening of disk space narrowing at L2-L3 with diskogenic sclerosis now evident. RADIA
== END 2020-02-08 13:33 | disposition home or self-care (01) ==
LOC: DI 13:32
PROVIDERS: ATTEND Family Medicine
DX: M51.36 Other intervertebral disc degeneration, lumbar region (principal); M47.816 Spondylosis without myelopathy or radiculopathy, lumbar region; M47.817 Spondylosis without myelopathy or radiculopathy, lumbosacral region
CPT/HCPCS: 72100

== ENCOUNTER 2020-06-23 07:18 | Outpatient (CLI) | payer MEDICARE | END 2020-06-23 07:19 | disposition EMS.NT | LOC: EMS 07:18 | PROVIDERS: ATTEND Surgery | DX: Z03.89 Encounter for observation for other suspected diseases and conditions ruled out (principal) ==

== ENCOUNTER 2020-09-11 13:13 | Outpatient (CLI) | payer MEDICARE ==
--- NOTE | 2020-09-11 14:01 | SLEEP CARE CONSULTATION ---
Information from patient questionnaire entered by Whitney Bradley. I have reviewed and concur with the information entered by Whitney Bradley. This document represents the service I personally performed and the decisions made by , Yu Enrique ARNP. History of Present Illness Service Date and Time: 09/11/2020 1313 Previous diagnosis: Moderate, Obstructive Sleep Apnea-Hypopnea Syndrome AHI: 15.8 Reason for follow up: annual (last seen 05/2019) Equipment type: CPAP Equipment obtained from: [employer] (getting supplies as needed) Mask style: Nasal (Dreamwear nasal mask) Mask brand: Respironics Backup mask available: No (will keep mask when replaced) Last cushion change: 2 weeks ago Prior sleep studies: Yes Year and Where: 2010 [facility] additional information: IBRAHIMA WOOTEN was diagnosed to have moderate, AHI 15.8, obstructive sleep apnea-hypopnea syndrome and returned today for CPAP therapy annual follow-up. Sleep Study - Results Prior sleep studies: Yes Year and Where: 2010 here CPAP Compliance Data - Data Reviewed with Patient Average duration of nightly device use: 10 hours 13 mins Compliance rate %: 100 Current pressure setting (cmH2O): 12 Humidity settin Heated hose settin Average residual AHI: 8.1 Central apnea: 0.8 Obstructive apnea: 1.9 Hypopnea: 5.6 Average large leak: 33 mins 47 secs Subjective Patient concerns: reports: dry mouth, nose, throat. denies: aerophagia, mask discomfort, air blowing in eyes, mask leak noise, condensation in mask/hose, nasal congestion, epistaxis, other Observed to snore while using device: No Current pressure setting perceived as: comfortable On therapy, patient: reports: sleeping better, awakening more refreshed, being more awake and alert during the day, more rested overall. denies: drowsiness while driving Initial [place] Sleepiness Scale score: 8 (in 2018) Current [place] Sleepiness Scale score: 1 Allergies and Home Medications Drug allergies reviewed: Yes (NKDA) Home medication list reviewed: Yes (no changes) Review of Systems Review of systems same as previous: Yes (no changes) Physical Exam Heart Rate: 79 O2 Saturation: 97 Height: 5 ft 10 in Weight: 246 lb Body Mass Index: 35.3 BMI Classification: Obese Impression and Plan 1. Obstructive Sleep Apnea-Hypopnea Syndrome, moderate, with good treatment compliance and fair apnea control with elevated residual AHI. On CPAP therapy, the patient has better sleep quality and is more rested overall. The patients pressure will be changed to autoCPAP 12-14 cmH20 for elevation of residual AHI. Patient advised to contact me if pressure change is uncomfortable so that it can be adjusted. Goals for apnea control discussed. He will follow up here in 1-2 months to check effectiveness. He has some oral dryness because he is a mouth breather at night and cannot tolerate using a chin strap. Oral dryness can be reduced by adjusting humidity setting higher or heated hose lower or by adjusting both settings. Oral with demonstration instructions given on how to change humidity and heated hose settings with rationale explaining why to change. Oral dryness can also be reduced by reducing mask leaks. Patient advised that chronic oral dryness can affect dental health and advised to follow up with dentist. In addition, there are oral dryness products that can be used to reduce dryness such as Biotene products, Dry mouth rinse and Xylomelts. Patient to discuss best option with dentist. Patient's apnea severity and rationale for treatment to reduce apnea, improve sleep quality and reduce cardiovascular and cerebrovascular events was reviewed. I also reviewed the benefit of consistent device use of CPAP for hypertension, cardiac disease, cerebrovascular disease, depression and gastric reflux. * Change autoCPAP pressure to 12-14 cmH2O * Notify me if snoring with mask or feeling that the pressure is too much or too little * Attempt to lose weight * Call this office if any problems using CPAP * Return for follow up in 1-2 months , or sooner if concerns arise Counseling Topics: Spare mask, Weight loss health impact Visit Type: In Office Time Spent with Patient (minutes): 18 Provider Statement: I spent 100% of the Face to Face Visit with the patient with greater than 50% spent counseling the patient and coordination of care.
== END 2020-09-11 13:14 | disposition home or self-care (01) ==
LOC: SC 13:13
PROVIDERS: ATTEND Nurse Practitioner Family
DX: G47.33 Obstructive sleep apnea (adult) (pediatric) (principal); E66.9 Obesity, unspecified; Z68.35 Body mass index [BMI] 35.0-35.9, adult
CPT/HCPCS: 99213; G0463; 99212

== ENCOUNTER 2020-10-24 09:32 | Outpatient (CLI) | payer MEDICARE ==
--- NOTE | 2020-10-24 10:26 | SLEEP CARE CONSULTATION ---
Information from patient questionnaire entered by Tessy Conroy. I have reviewed and concur with the information entered by Tessy Conroy. This document represents the service I personally performed and the decisions made by , Yu Enrique ARNP. History of Present Illness Service Date and Time: 10/24/2020 0932 Previous diagnosis: Moderate, Obstructive Sleep Apnea-Hypopnea Syndrome AHI: 15.8 (in 2010)(7.5 in 2004) Reason for follow up: other (6 week with pressure change) Equipment type: CPAP Equipment obtained from: [place] (getting supplies as needed) Mask style: Nasal Mask brand: Respironics (Dreamwear) Backup mask available: Yes (other mask) Last cushion change: 1.5 weeks ago Prior sleep studies: Yes Year and Where: 2010 - [facility] ; 2004 - [facility] additional information: IBRAHIMA WOOTEN was diagnosed to have moderate, AHI 15.8, obstructive sleep apnea-hypopnea syndrome and returned today for CPAP therapy 6 week pressure change follow-up. CPAP Compliance Data - Data Reviewed with Patient Average duration of nightly device use: 10 hours 44 minutes Compliance rate %: 100 Current pressure setting (cmH2O): 12-14 Humidity settin Heated hose settin Average residual AHI: 8.3 Central apnea: 0.7 Obstructive apnea: 1.4 Average large leak: 2 min 34 sec Subjective Patient concerns: reports: dry mouth, nose, throat. denies: aerophagia, mask discomfort, air blowing in eyes, mask leak noise, condensation in mask/hose, nasal congestion, epistaxis, other Observed to snore while using device: No Current pressure setting perceived as: comfortable On therapy, patient: reports: sleeping better, awakening more refreshed, being more awake and alert during the day, more rested overall. denies: drowsiness while driving Initial [place] Sleepiness Scale score: 5 (in 2005) Current [place] Sleepiness Scale score: 3 Allergies and Home Medications Drug allergies reviewed: Yes (NKDA) Home medication list reviewed: Yes (no changes) Review of Systems Review of systems same as previous: Yes (no changes) Physical Exam Heart Rate: 67 O2 Saturation: 98 Height: 5 ft 10 in Weight: 251 lb Body Mass Index: 36.0 BMI Classification: Obese Impression and Plan 1. Obstructive Sleep Apnea-Hypopnea Syndrome, moderate, with good treatment compliance and fair apnea control with elevated residual AHI. On CPAP therapy, the patient has better sleep quality and is more rested overall. The patients pressure will be changed to autoCPAP 14-16 cmH20 for elevation of residual AHI. Patient advised to contact me if pressure change is uncomfortable so that it can be adjusted. Goals for apnea control discussed. He has been having mouth dryness. His humidity is set at 1. Oral dryness can be reduced by adjusting humidity setting higher or heated hose lower or by adjusting both settings. Verbal instructions given on how to change humidity and heated hose settings with rationale explaining why to change. Patient's apnea severity and rationale for treatment to reduce apnea, improve sleep quality and reduce cardiovascular a nd cerebrovascular events was reviewed. I also reviewed the benefit of consistent device use of CPAP for hypertension, cardiac disease, cerebrovascular disease, gastric reflux, and depression. * Change auto CPAP pressure to 14-16 cmH2O * Notify me if snoring with mask or feeling that the pressure is too much or too little * Attempt to lose weight * Call this office if any problems using CPAP * Return for follow up in 1-2 months , or sooner if concerns arise Counseling Topics: Spare mask, Weight loss health impact Visit Type: In Office Time Spent with Patient (minutes): 16 Provider Statement: I spent 100% of the Face to Face Visit with the patient with greater than 50% spent counseling the patient and coordination of care.
--- OUTSIDE RECORDS SUMMARY | 2020-11-01 00:08 | EXTERNAL MEDICAL SUMMARY RPT | Continuity of Care Document ---
:1940 Demographics Phone Unavailable Preferred Language Unknown Marital Status Unknown Rastafari Affiliation Unknown Race Unknown Ethnic Group Unknown Author Organization [facility] Address [address] [phone] Phone Care Team Providers Name Role Phone RADHA Unavailable Unavailable Allergies date description facility [facility] NO KNOWN ENVIRON[facility]AL ALLERGIES [facility] SULFA ANTIBIOTICS [facility] ALBUMEN, EGG [facility] POULTRY [facility] Social History date description facility [phone]
== END 2020-10-24 09:33 | disposition home or self-care (01) ==
LOC: SC 09:32
PROVIDERS: ATTEND Nurse Practitioner Family
DX: G47.33 Obstructive sleep apnea (adult) (pediatric) (principal); E66.9 Obesity, unspecified; Z68.36 Body mass index [BMI] 36.0-36.9, adult
CPT/HCPCS: 99213; G0463; 99212

== ENCOUNTER 2020-11-13 10:09 | Emergency (ER) | payer MEDICARE ==
[2020-11-13 10:19] VITALS: BP 131/75
--- NOTE | 2020-11-13 10:30 | ED Physician Documentation ---
PD HPI FOCAL NEURO - Stated complaint Stated Complaint: WEAKNESS - Chief complaint Chief Complaint: Neuro - History obtained from History obtained from: Patient - Additional information Additional information: 3 years ago after coronary bypass he had a stroke with right-sided deficits. These deficits have been slowly progressive through that time and he has frequent falls. In contrast to the nurses notes which said it has been worse over 3 weeks, the patient tells me its been progressive over the 3 years without an acute worsening. When queried what caused his visit to the hospital today, he states that he sent his primary care physician in note and was referred in. Last fall with his couple of days ago without injury. Review of Systems Ten Systems: 10 systems reviewed and negative Ears: reports: Reviewed and negative Nose: reports: Reviewed and negative Throat: reports: Reviewed and negative Cardiac: reports: Reviewed and negative Respiratory: reports: Reviewed and negative PD PAST MEDICAL HISTORY - Past Medical History Cardiovascular: Hypertension, High cholesterol, Coronary artery disease Respiratory: Sleep apnea, CPAP use Endocrine/Autoimmune: HyPOthyroidism GI: GI bleed : None HEENT: None Psych: None Musculoskeletal: Chronic back pain Derm: None - Past Surgical History Past Surgical History: Yes General: Colonoscopy Ortho: Knee replacement Neuro: Other - Present Medications Home Medications: Ambulatory Orders Medication Instructions Recorded Confirmed Atorvastatin Calcium 40 mg PO DAILY PM 02/19/13 11/13/20 Fluoxetine HCl 40 mg PO DAILY 02/19/13 11/13/20 Levothyroxine Sodium [Synthroid] 100 mcg PO DAILY 02/19/13 11/13/20 Losartan [Cozaar] 100 mg PO DAILY PM 02/19/13 11/13/20 Metoprolol Succinate [Toprol Xl] 25 mg PO DAILY PM 02/19/13 11/13/20 Meloxicam 15 mg PO DAILY 08/22/17 11/13/17 Tamsulosin [Flomax] 0.4 mg PO DAILY 08/22/17 11/13/20 Sildenafil Citrate [Viagra] 1 tab PO PRN PRN 09/23/17 11/13/17 Amlodipine Besylate [Norvasc] 10 mg PO DAILY 11/13/20 11/13/20 Clopidogrel [Plavix] 75 mg PO DAILY 11/13/20 11/13/20 Fluoxetine HCl [Prozac] 20 mg PO DAILY 11/13/20 11/13/20 Isosorbide Mononitrate [Isosorbide 60 mg PO DAILY 11/13/20 11/13/20 Mononitrate ER] Multivitamin 1 tab ORAL DAILY 11/13/20 11/13/20 - Allergies Allergies/Adverse Reactions: Allergies Allergy/AdvReac Type Severity Reaction Status Date / Time No Known Drug Allergies Allergy Verified 11/13/20 10:13 - Social History Does the pt smoke?: No Smoking Status: Never smoker Does the pt drink ETOH?: No Does the pt have substance abuse?: No - Immunizations Immunizations are current?: Yes - POLST Patient has POLST: No PD ED PE NORMAL - Vitals Vital signs reviewed: Yes - General General: Alert and oriented X 3, No acute distress - HEENT HEENT: PERRL, EOMI - Neck Neck: Supple, no meningeal sign, No bony TTP - Cardiac Cardiac: RRR, No murmur - Respiratory Respiratory: No respiratory distress, Clear bilaterally - Abdomen Abdomen: Non tender - Back Back: No CVA TTP, No spinal TTP - Derm Derm: Normal color, Warm and dry - Extremities Extremities: No edema, No calf tenderness / cord - Neuro Neuro: Alert and oriented X 3, Normal speech, Other (He has a slow shuffling gait and some weakness in the right leg. He has very mild pronator drift in the right arm without car shunter strength weakness. He also has a very fine tremor on the right side.) - Psych Psych: Normal mood, Normal affect NIHSS - Time Time: 10:25 - Level of Consciousness Level of consciousness: (0) Alert, Keenly responsive LOC Questions: (0) Answers both Q's correct LOC Commands: (0) Performs both correctly - Gaze Best Gaze: (0) Normal - Visual Visual: (0) No loss - Facial Palsy Facial Palsy: (0) Normal, symmetrical movement - Motor Arms (both separate) Motor Arm (right): (1) Drift Motor Arm (left): (0) No drift - Motor Legs (both separate) Motor Leg (right): (1) Drift Motor Leg (left): (0) No drift - Limb Ataxia Limb Ataxia: (0) Absent - Sensory Sensory: (0) Normal - Best Language Best Language: (0) No aphasia - Dysarthria Dysarthria: (0) Normal - Extinction and Inattention (formally neg Extinction and inattention: (0) No abnormality - Total Score/Results Total Score/Result: 2 Results - Vitals Vitals: Vital Signs - 24 hr 11/13/20 10:13 Temperature 36.3 C L Heart Rate 96 Respiratory 18 Rate Blood Pressure 131/75 H O2 Saturation 95 Oxygen O2 Source Room air - EKG (time done) 1033 Rate: Rate (enter#) (68) Rhythm: NSR [place]: Normal Intervals: Normal CO QRS: Normal Ischemia: Normal ST segments - Labs Labs: Laboratory Tests 11/13/20 11/13/20 10:45 10:45 WBC 8.0 RBC 4.58 L Hgb 13.6 L Hct 41.4 L MCV 90.4 MCH 29.7 MCHC 32.9 RDW 12.8 Plt Count 241 MPV 10.0 Neut # (Auto) 6.1 Lymph # (Auto) 1.0 L [place] # (Auto) 0.6 Eos # (Auto) 0.2 Baso # (Auto) 0.0 Absolute Nucleated RBC 0.00 Nucleated RBC % 0.0 Sodium 142 Potassium 4.4 Chloride 103 Carbon Dioxide 28 Anion Gap 11.0 BUN 15 Creatinine 1.0 Estimated GFR (MDRD) 72 L Glucose 131 H Calcium 9.7 PD MEDICAL DECISION MAKING - ED course ED course: This is a 80-year-old gentleman whose had progressive neurologic difficulties since a stroke sustained [address] is without acute issues, he has an appointment to follow-up with a neurologist early next month which I think is appropriate. Discussed falls precaution with him but I do not see anything easily reversible from an emergency department perspective. Departure - Departure Disposition: Home, Self Care Clinical Impression: Late effect of ischemic cerebral stroke Condition: Good Record reviewed to determine appropriate education?: Yes Instructions: ED Stroke Completed Comments: Talk with your doctor about referrals to physical therapy as well as neurology. Continue current medications. Use your walker religiously. Return if worsening. Discharge Date/Time: 11/13/20 11:45
[2020-11-13 10:51] LABS: BASOPHILS % (AUTO) 0.4 %; EOSINOPHILS # (AUTO) 0.2 10^3/uL (0.0-0.7); EOSINOPHILS % (AUTO) 2.9 %; HGB - HEMOGLOBIN 13.6 g/dL (14.0-18.0); LYMPHOCYTES % (AUTO) 12.4 %; MEAN CORPUSCULAR HEMOGLOBIN 29.7 pg (27.0-31.0); MEAN CORPUSCULAR HGB CONC 32.9 g/dL (32.0-36.0); MEAN CORPUSCULAR VOLUME 90.4 fL (80.0-94.0); MONOCYTES # (AUTO) 0.6 10^3/uL (0.0-1.0); MONOCYTES % (AUTO) 7.7 %; NEUTROPHILS # (AUTO) 6.1 10^3/uL (1.5-6.6); NEUTROPHILS % (AUTO) 76.4 %; PLT - PLATELET COUNT 241 10^3/uL (130-450); RED BLOOD COUNT 4.58 10^6/uL (4.70-6.10); RED CELL DISTRIBUTION WIDTH 12.8 % (12.0-15.0)
[2020-11-13 11:01] LABS: CALCIUM 9.7 mg/dL (8.5-10.3)
--- NOTE | 2020-11-13 11:23 | CT Report ---
PROCEDURE: HEAD WO INDICATIONS: R sided weak TECHNIQUE: Noncontrast 4.5 mm thick angled axial sections acquired from the foramen magnum to the vertex. For r adiation dose reduction, the following was used: automated exposure control, adjustment of mA and/or kV according to patient size. COMPARISON: 11/20/2019 and 10/31/2017 FINDINGS: Image quality: Excellent. CSF spaces: Basal cisterns are patent. No extra-axial fluid collections. The ventricles are symmet júnior in size and shape. Brain: No intracranial bleeds or masses. There is cerebral volume loss for age, with resultant vent ricular and sulcal prominence. There are periventricular and deep white matter chronic small vessel ischemic changes. There is intracranial internal carotid artery atherosclerosis. Skull and face: Calvarium and visualized facial bones appear intact, without suspicious lesions. Sinuses: Visualized sinuses and mastoids are clear. IMPRESSION: No acute intracranial disease process. Reviewed by: Anne Vizcarra MD, PhD on 11/13/2020 10:21 AM [facility] Approved by: Anne Vizcarra MD, PhD on 11/13/2020 10:21 AM [facility] Station ID: [id number]
== END 2020-11-13 11:45 | disposition home or self-care (01) ==
LOC: ED 10:09
DX: I69.351 Hemiplegia and hemiparesis following cerebral infarction affecting right dominant side (principal); I69.398 Other sequelae of cerebral infarction; R26.89 Other abnormalities of gait and mobility; R29.6 Repeated falls; R25.1 Tremor, unspecified; I10 Essential (primary) hypertension; I25.10 Atherosclerotic heart disease of native coronary artery without angina pectoris; Z95.1 Presence of aortocoronary bypass graft; Z79.02 Long term (current) use of antithrombotics/antiplatelets
CPT/HCPCS: 36415; 80048; 85025; 93005; 99284

== ENCOUNTER 2021-12-12 14:38 | Outpatient (CLI) | payer MEDICARE | END 2021-12-12 14:39 | disposition EMS.NT | LOC: EMS 14:38 | DX: R53.1 Weakness (principal) ==

== ENCOUNTER 2021-12-26 10:20 | Outpatient (CLI) | payer MEDICARE ==
[2021-12-26 10:32] LABS: BASOPHILS % (AUTO) 0.3 %; EOSINOPHILS # (AUTO) 0.4 10^3/uL (0.0-0.7); EOSINOPHILS % (AUTO) 4.2 %; HCT - HEMATOCRIT 42.9 % (42.0-52.0); LYMPHOCYTES # (AUTO) 0.9 10^3/uL (1.5-3.5); LYMPHOCYTES % (AUTO) 9.6 %; MEAN CORPUSCULAR HEMOGLOBIN 27.8 pg (27.0-31.0); MEAN CORPUSCULAR HGB CONC 32.6 g/dL (32.0-36.0); MEAN CORPUSCULAR VOLUME 85.3 fL (80.0-94.0); MEAN PLATELET VOLUME 10.7 fL (7.4-11.4); MONOCYTES # (AUTO) 0.4 10^3/uL (0.0-1.0); MONOCYTES % (AUTO) 4.6 %; NEUTROPHILS # (AUTO) 7.5 10^3/uL (1.5-6.6); NEUTROPHILS % (AUTO) 81.1 %; PLT - PLATELET COUNT 239 10^3/uL (130-450); RED BLOOD COUNT 5.03 10^6/uL (4.70-6.10); RED CELL DISTRIBUTION WIDTH 15.1 % (12.0-15.0); WHITE BLOOD COUNT 9.2 x10^3/uL (4.8-10.8)
[2021-12-26 10:42] LABS: ALBUMIN 4.2 g/dL (3.2-5.5); ALBUMIN/GLOBULIN RATIO 1.4 (1.0-2.2); BILIRUBIN,TOTAL 0.6 mg/dL (0.2-1.0); CALCIUM 9.4 mg/dL (8.5-10.3); CREATININE 0.9 mg/dL (0.6-1.2); MAGNESIUM 2.1 mg/dL (1.7-2.8); POTASSIUM 3.9 mmol/L (3.5-5.0); TOTAL PROTEIN 7.3 g/dL (6.7-8.2)
[2021-12-26 10:57] LABS: THYROID STIMULATING HORMONE 3.05 uIU/mL (0.34-5.60)
[2021-12-26 13:25] LABS: ESTIMATED AVERAGE GLUCOSE 140 mg/dL (70-100); HEMOGLOBIN A1c% 6.5 % (4.27-6.07)
== END 2021-12-26 10:21 | disposition home or self-care (01) ==
LOC: LAB 10:20 → LAB.R 10:21
PROVIDERS: ATTEND Hospitalist
DX: N17.9 Acute kidney failure, unspecified (principal); D50.0 Iron deficiency anemia secondary to blood loss (chronic); E11.9 Type 2 diabetes mellitus without complications; E03.9 Hypothyroidism, unspecified; M62.81 Muscle weakness (generalized)
CPT/HCPCS: 80053; 82607; 83036; 83735; 84443; 85025

== ENCOUNTER 2022-08-13 15:05 | Outpatient (CLI) | payer MEDICARE | END 2022-08-13 23:59 | disposition EMS.NT | LOC: EMS 15:05 | DX: S09.93XA Unspecified injury of face, initial encounter (principal); W18.39XA Other fall on same level, initial encounter; Y92.000 Kitchen of unspecified non-institutional (private) residence as the place of occurrence of the external cause ==

== ENCOUNTER 2023-04-13 10:25 | Outpatient (CLI) | payer MEDICARE | END 2023-04-13 23:59 | disposition EMS.NT | LOC: EMS 10:25 | DX: Z03.89 Encounter for observation for other suspected diseases and conditions ruled out (principal) ==

== ENCOUNTER 2023-04-27 10:15 | Outpatient (CLI) | payer MEDICARE | END 2023-04-27 10:16 | disposition EMS.NT | LOC: EMS 10:15 | DX: Z03.89 Encounter for observation for other suspected diseases and conditions ruled out (principal) ==

== ENCOUNTER 2023-06-23 09:40 | Outpatient (CLI) | payer MEDICARE | END 2023-06-23 23:59 | disposition EMS.NT | LOC: EMS 09:40 | DX: Z03.89 Encounter for observation for other suspected diseases and conditions ruled out (principal) ==

== ENCOUNTER 2023-08-18 10:04 | Outpatient (CLI) | payer MEDICARE | END 2023-08-18 10:05 | disposition critical access hospital (66) | LOC: EMS 10:04 | DX: R41.89 Other symptoms and signs involving cognitive functions and awareness (principal); R53.1 Weakness | CPT/HCPCS: A0425; A0427 ==

== ENCOUNTER 2023-08-18 10:15 | Inpatient (IN) | payer MEDICARE, OTHER ==
--- NOTE | 2023-08-18 10:38 | ED Physician Documentation ---
PD HPI ALTERED MENTAL STATUS - Stated complaint Stated Complaint: ALOC - Chief complaint Chief Complaint: Neuro - History obtained from History obtained from: Patient, Family, EMS (relayed info from about pt symptoms.) - History of Present Illness Timing - onset: How many days ago (The patient has had back pain and some leg weakness for months which has caused him to be in a wheelchair with his assisting him. In last several weeks he needed help with a home health aide in addition to his for transfers. He has had increased generally weak and this AM was confused.) Timing - duration: Days Timing - details: Gradual onset, Still present Quality / character: Confused (this morning was confused and poor alertness per to Medics.) Associated symptoms: No: Fever, Headache Contributing factors: No: Recent med change, Recent illness Basline status: Alert and oriented X 3, Wheelchair (due to back pain and requires assistance with transfers ( and an aide).) Review of Systems Constitutional: reports: Fatigue. denies: Fever, Chills Nose: denies: Rhinorrhea / runny nose, Congestion Throat: denies: Sore throat Respiratory: denies: Cough Skin: denies: Rash Neurologic: reports: Generalized weakness (recent), Focal weakness (both legs for months, with stated MRI Prov Mitch in past couple of months, and has back specialist who will be doing back injection Aug 31.), Confused (today) PD PAST MEDICAL HISTORY - Past Medical History Cardiovascular: Hypertension, High cholesterol, Coronary artery disease Respiratory: Sleep apnea, CPAP use Endocrine/Autoimmune: HyPOthyroidism GI: GI bleed : None HEENT: None Psych: None Musculoskeletal: Chronic back pain Derm: None - Past Surgical History Past Surgical History: Yes General: Colonoscopy Ortho: Knee replacement Neuro: Other - Present Medications Home Medications: Ambulatory Orders Medication Instructions Recorded Confirmed Atorvastatin Calcium 40 mg PO DAILY PM 02/19/13 08/18/23 Levothyroxine Sodium [Synthroid] 100 mcg PO DAILY 02/19/13 08/18/23 Metoprolol Succinate [Toprol Xl] 50 mg PO DAILY PM 02/19/13 08/18/23 Tamsulosin [Flomax] 0.4 mg PO DAILY 08/22/17 08/18/23 Sildenafil Citrate [Viagra] 1 tab PO PRN PRN 09/23/17 08/18/23 Isosorbide Mononitrate [Isosorbide 60 mg PO DAILY 11/13/20 08/18/23 Mononitrate ER] Multivitamin 1 tab ORAL DAILY 11/13/20 08/18/23 Aspirin [[place] Aspirin] 81 mg PO DAILY 07/11/23 08/18/23 Gabapentin [Neurontin] 300 mg PO HS 07/11/23 08/18/23 HYDROcod/ACETAM 5/325 [[place] 5/325] 1 - 2 tablet PO Q6H PRN #14 tablet 07/11/23 08/18/23 predniSONE [Deltasone] 10 mg PO [id number] #42 tab 07/11/23 08/18/23 Amlodipine Besylate [Norvasc] 2.5 mg PO DAILY 08/18/23 Fluoxetine HCl 60 mg PO DAILY 08/18/23 - Allergies Allergies/Adverse Reactions: Allergies Allergy/AdvReac Type Severity Reaction Status Date / Time No Known Drug Allergies Allergy Verified 08/18/23 10:26 - Social History Does the pt smoke?: No Smoking Status: Never smoker Does the pt drink ETOH?: No Does the pt have substance abuse?: No - Immunizations Immunizations are current?: Yes - POLST Patient has POLST: No PD ED PE NORMAL - General General: No acute distress, Well developed/nourished. No: Alert and oriented X 3 (oriented to person and place. Gave history clearly, but slightly slow in answers. ) - HEENT HEENT: Pharynx benign - Neck Neck: Supple, no meningeal sign, No adenopathy - Cardiac Cardiac: RRR, No murmur - Respiratory Respiratory: Clear bilaterally - Abdomen Abdomen: Normal bowel sounds, Soft, Non tender, Non distended - Back Back: Other (some tenderness left CVA area. Guarded ROM due to low back pain. ) - Derm Derm: Normal color, Warm and dry - Extremities Extremities: No edema, No calf tenderness / cord - Neuro Neuro: Alert and oriented X 3, No motor deficit, No sensory deficit, Normal speech Results - Vitals Vitals: Vital Signs - 24 hr 08/18/23 08/18/23 10:26 12:31 Temperature 36.7 C 35.9 C L Heart Rate 96 91 Respiratory 17 18 Rate Blood Pressure 132/77 H 138/76 H O2 Saturation 95 96 Oxygen O2 Source Room air - Labs Labs: Laboratory Tests 08/18/23 08/18/23 08/18/23 10:38 11:22 11:22 WBC 16.1 H RBC 4.53 L Hgb 13.5 L Hct 39.4 L MCV 87.0 MCH 29.8 MCHC 34.3 RDW 12.1 Plt Count 254 MPV 10.0 Neut # (Auto) 14.2 H Lymph # (Auto) 0.5 L [place] # (Auto) 1.2 H Eos # (Auto) 0.1 Baso # (Auto) 0.1 Absolute Nucleated RBC 0.00 Nucleated RBC % 0.0 Sodium 130 L Potassium 4.3 Chloride 96 L Carbon Dioxide 27 Anion Gap 7.0 BUN 14 Creatinine 0.8 Estimated GFR (MDRD) 93 Glucose 416 H Lactic Acid Calcium 9.3 Magnesium 1.5 L Total Bilirubin 1.4 H AST 11 ALT 16 Alkaline Phosphatase 74 Total Protein 6.5 Albumin 3.8 Globulin 2.7 Albumin/Globulin Ratio 1.4 Lipase < 10 L Urine Color DARK YELLOW Urine Clarity CLOUDY Urine pH 6.0 Ur Specific [place] >=1.030 H Urine Protein 100 H Urine Glucose (UA) 500 H Urine Ketones 15 H Urine Occult Blood LARGE H Urine Nitrite NEGATIVE Urine Bilirubin NEGATIVE Urine Urobilinogen 4 H Ur Leukocyte Esterase TRACE H Urine RBC 11-25 H Urine WBC 11-25 H Ur Squamous Epith Cells RARE Squamous Amorphous Sediment Moderate Urine Bacteria Moderate H Ur Microscopic Review INDICATED Urine Culture Comments INDICATED 08/18/23 11:22 WBC RBC Hgb Hct MCV MCH MCHC RDW Plt Count MPV Neut # (Auto) Lymph # (Auto) [place] # (Auto) Eos # (Auto) Baso # (Auto) Absolute Nucleated RBC Nucleated RBC % Sodium Potassium Chloride Carbon Dioxide Anion Gap BUN Creatinine Estimated GFR (MDRD) Glucose Lactic Acid 2.4 H Calcium Magnesium Total Bilirubin AST ALT Alkaline Phosphatase Total Protein Albumin Globulin Albumin/Globulin Ratio Lipase Urine Color Urine Clarity Urine pH Ur Specific [place] Urine Protein Urine Glucose (UA) Urine Ketones Urine Occult Blood Urine Nitrite Urine Bilirubin Urine Urobilinogen Ur Leukocyte Esterase Urine RBC Urine WBC Ur Squamous Epith Cells Amorphous Sediment Urine Bacteria Ur Microscopic Review Urine Culture Comments PD Medical Decision Making - ED course Complexity details: reviewed results, considered differential (back pain with trouble walking/transfer for months. Generally weak now and unable to transfer even with assist. ), d/w patient, d/w [employer] consultant (Hospitalist) Reviewed Lab Results: The patient appears generally well. He denies flu or cold symptoms. No fever or chills. He does have a Albert in because of urinary retention. He has had a back MRI in the last few months at [place] and is seeing a back specialist for apparently disc injection in a couple of weeks. He has noticed increased general weakness last few days to week and is unable to transfer even with the assistance of a home health aide and his at this point. They had been discussing a higher level of care for him. He does additionally have some general weakness as well. Basic labs are showing elevated white count of 16,000. His lactate is slightly elevated at 2.4. He has a catheter Albert in place but his urine does show signs of likely UTI. He does not have any respiratory symptoms. At this point I would consider the idea of a acute urinary tract infection and adding increased weakness to a already debilitated person with difficulty walking and transfer. Unclear how much is a new symptoms from urinary infection. He also has a slightly low magnesium of 1.5. We will certainly for now we will treat the urinary tract infection pending cultures. He has had lumbar MRI imaging in past couple of months with same back pain, so did not see need for re-imaging at this time. Departure - Departure Disposition: [facility] [place] Clinical Impression: General weakness, Confused, UTI (urinary tract infection), Chronic back pain Condition: Stable Record reviewed to determine appropriate education?: Yes Discharge Date/Time: 08/18/23 14:50
[2023-08-18 10:47] LABS: BILIRUBIN,URINE NEGATIVE (NEGATIVE); GLUCOSE, URINE (UA) 500 mg/dL (NEGATIVE); KETONES,URINE (UA) 15 mg/dL (NEGATIVE); LEUKOCYTE ESTERASE, URINE TRACE (NEGATIVE); NITRITE,URINE NEGATIVE (NEGATIVE); OCCULT BLOOD,URINE LARGE (NEGATIVE); PROTEIN,URINE 100 mg/dL (NEGATIVE); UROBILINOGEN,URINE 4 E.U./dL (NORMAL)
[2023-08-18 10:52] LABS: CLARITY,URINE CLOUDY (CLEAR)
[2023-08-18 10:56] LABS: AMORPHOUS SEDIMENT,UR Moderate /LPF; BACTERIA,URINE Moderate /HPF (None Seen); SQUAMOUS EPITHELIAL CELL,UR RARE Squamous (<= Few)
[2023-08-18] MEDS ORDERED: HYDROmorphone 0.5 MG/0.5 ML SYRINGE IVP STA (11:12)
[2023-08-18] MEDS ORDERED: KETOROLAC 15 MG/ML VIAL IVP STA (11:12)
[2023-08-18 11:29] LABS: BASOPHILS # (AUTO) 0.1 10^3/uL (0.0-0.1); BASOPHILS % (AUTO) 0.3 %; EOSINOPHILS # (AUTO) 0.1 10^3/uL (0.0-0.7); EOSINOPHILS % (AUTO) 0.4 %; HCT - HEMATOCRIT 39.4 % (42.0-52.0); HGB - HEMOGLOBIN 13.5 g/dL (14.0-18.0); LYMPHOCYTES # (AUTO) 0.5 10^3/uL (1.5-3.5); LYMPHOCYTES % (AUTO) 2.9 %; MEAN CORPUSCULAR HEMOGLOBIN 29.8 pg (27.0-31.0); MEAN CORPUSCULAR HGB CONC 34.3 g/dL (32.0-36.0); MONOCYTES # (AUTO) 1.2 10^3/uL (0.0-1.0); MONOCYTES % (AUTO) 7.2 %; NEUTROPHILS # (AUTO) 14.2 10^3/uL (1.5-6.6); NEUTROPHILS % (AUTO) 88.6 %; PLT - PLATELET COUNT 254 10^3/uL (130-450); RED BLOOD COUNT 4.53 10^6/uL (4.70-6.10); RED CELL DISTRIBUTION WIDTH 12.1 % (12.0-15.0); WHITE BLOOD COUNT 16.1 x10^3/uL (4.8-10.8)
[2023-08-18 11:56] LABS: ALBUMIN 3.8 g/dL (3.2-5.5); ALBUMIN/GLOBULIN RATIO 1.4 (1.0-2.2); ALKALINE PHOSPHATASE 74 IU/L (42-121); ALT ALANINE AMINOTRANSFERASE 16 IU/L (10-60); AST ASPARTATE AMINOTRANSFERASE 11 IU/L (10-42); BILIRUBIN,TOTAL 1.4 mg/dL (0.2-1.0); BUN - BLOOD UREA NITROGEN 14 mg/dL (6-20); CALCIUM 9.3 mg/dL (8.5-10.3); CARBON DIOXIDE - CO2 27 mmol/L (21-32); CHLORIDE 96 mmol/L (101-111); CREATININE 0.8 mg/dL (0.6-1.3); GFR - MDRD 93 (>89); GLUCOSE 416 mg/dL (74-104); MAGNESIUM 1.5 mg/dL (1.7-2.3); POTASSIUM 4.3 mmol/L (3.5-4.5); SODIUM 130 mmol/L (135-145); TOTAL PROTEIN 6.5 g/dL (6.4-8.9)
[2023-08-18 11:59] LABS: LIPASE < 10 U/L (11-82)
[2023-08-18] MEDS ORDERED: MAGNESIUM SULFATE 2 GRAM 2 GM/50 ML BAG IV ONE (12:21)
[2023-08-18] MEDS ORDERED: cefTRIAXone 1 GM VIAL IVP STA (12:21)
[2023-08-18] MEDS ORDERED: SODIUM CHLORIDE FLUSH 0.9% 10 ML SYRINGE IVP PRN (13:53)
--- NOTE | 2023-08-18 14:00 | HISTORY & PHYSICAL EXAMINATION ---
Chief Complaint - Chief Complaint Chief Complaint: weakness, altered mental status History of Present Illness - Admitted From Admitted From:: Home/ED - History Obtained From Records Reviewed: Yes History obtained from: Patient, and ED sign out - History of Present Illness HPI Comment/Other: A 83yo M with hx CAD s/p CABG (5 yrs ago), HTN, Sleep apnea on CPAP,Chronic back pain s/p 5 surgeries, Chronic Albert for urinary retention, bedboud/wheelchair bound Brought in by EMS with CC of AMS, worsening weakness. Patient has been so weak for a while, noted worsening in the past two weeks, reports usually he needs her and the Home health aid to help patient move from bed to chair, he becomes so weak, has no core muscle strength. Both legs has no strength, patient had MRI over every rate in the past couple of month and had back specialist who has been doing back injection for him. However the weakness and wheelchair- bound status had no improvement. Patient was brought in today due to altered mental status noted by his . Per his patient usually quite awake alert and orientated, today in the morning he was not making sense which prompted the ED visit. In the ED, vitals were stable with elevated blood pressure 158/80s. Labs significant with WBC 16, lactic acid 2.5. Sodium 130, magnesium 1.5. UA shows sign of infection. Patient was given IV fluid and ceftriaxone in the ED History - Past Medical History Cardiovascular: reports: Hypertension, High cholesterol, Coronary artery disease Respiratory: reports: Sleep apnea, CPAP use Neuro: reports: CVA Endocrine/Autoimmune: reports: HyPOthyroidism GI: reports: GI bleed : reports: None HEENT: reports: None Psych: reports: None Musculoskeletal: reports: Chronic back pain Derm: reports: None MRSA Hx?: No - Past Surgical History General: reports: Colonoscopy Ortho: reports: Knee replacement Neuro: reports: Other - POLST Patient has POLST: No Meds/Allgy - Home Medications Home Medications: Ambulatory Orders Medication Instructions Recorded Confirmed Atorvastatin Calcium 40 mg PO DAILY PM 02/19/13 08/18/23 Fluoxetine HCl 40 mg PO DAILY 02/19/13 08/18/23 Levothyroxine Sodium [Synthroid] 100 mcg PO DAILY 02/19/13 08/18/23 Metoprolol Succinate [Toprol Xl] 50 mg PO DAILY PM 02/19/13 08/18/23 Tamsulosin [Flomax] 0.4 mg PO DAILY 08/22/17 08/18/23 Sildenafil Citrate [Viagra] 1 tab PO PRN PRN 09/23/17 08/18/23 Amlodipine Besylate [Norvasc] 25 mg PO DAILY 11/13/20 08/18/23 Fluoxetine HCl [Prozac] 20 mg PO DAILY 11/13/20 08/18/23 Isosorbide Mononitrate [Isosorbide 60 mg PO DAILY 11/13/20 08/18/23 Mononitrate ER] Multivitamin 1 tab ORAL DAILY 11/13/20 08/18/23 Aspirin [[place] Aspirin] 81 mg PO DAILY 07/11/23 08/18/23 Gabapentin [Neurontin] 300 mg PO HS 07/11/23 08/18/23 HYDROcod/ACETAM 5/325 [[place] 5/325] 1 - 2 tablet PO Q6H PRN #14 tablet 07/11/23 08/18/23 predniSONE [Deltasone] 10 mg PO [id number] #42 tab 07/11/23 08/18/23 - Allergies Allergies/Adverse Reactions: Allergies Allergy/AdvReac Type Severity Reaction Status Date / Time No Known Drug Allergies Allergy Verified 08/18/23 10:26 Review of Systems - Constitutional Constitutional: reports: Fatigue, Weakness. denies: Fever, Chills, Diaphoresis - Eyes Eyes: denies: Blurred vision, Vision loss, Dipolpia - Ears, Nose & Throat Ears, Nose & Throat: denies: Nasal discharge, Sore throat, Hoarseness - Cardiovascular Cariovascular: denies: Irregular heart rate, Palpitations, Chest pain - Respiratory Respiratory: denies: Cough, Wheezing, Snoring - Gastrointestinal Gastrointestinal: denies: Abdominal pain, Diarrhea, Nausea, Vomiting - Genitourinary Genitourinary: reports: Other (Chronic Albert user) - Musculoskeletal Musculoskeletal: reports: Back pain, Limited range of motion - Neurological Neurological: reports: General weakness. denies: Dizziness - Psychiatric Psychiatric: denies: Anxiety - Endocrine Endocrine: denies: Polyuria, Polydypsia, Polyphagia - Hematologic/Lymphatic Hematologic/Lymphatic: denies: Anemia Prior Level of Functionality: Bedbound, wheelchair-bound Exam - Vital Signs Reviewed Vital Signs: Yes Vital Signs: Vital Signs x48h Temp Pulse Resp BP Pulse Ox 08/18/23 12:31 35.9 C L 91 18 138/76 H 96 08/18/23 10:26 36.7 C 96 17 132/77 H 95 - Physical Exam General Appearance: positive: No acute distress, Alert Eyes Bilateral: positive: PERRL, EOMI ENT: positive: ENT inspection nml Neck: positive: No JVD. negative: Stiff neck Cardiovascular: positive: Regular rate & rhythm, No murmur, No gallop Abdomen: positive: Non-tender, No distention Skin: positive: No rash, Warm, Dry Extremities: negative: No pedal edema, Joint swelling Neurologic/Psychiatric: positive: CN's nml (2-12), Disoriented to time, Other (Able to tell me his 's name, they have over 20 years. Per his , patient's mental status has improved after the iv fluid and antibiotic) Sepsis Event Note (H) - Evaluation Current Stage of Sepsis: Ruled out Conclusion/Plan - Problem List (1) Altered mental status Conclusion/Plan: Metabolic encephalopathy, likely secondary to UTI, and hyponatremia Continue ceftriaxone Gentle hydration in the setting of history of CAD Monitoring mental status Monitoring electrolytes (2) UTI (urinary tract infection) Conclusion/Plan: Leukocytosis, elevated lactic acid, UA positive Chronic Albert user Culture is pending, blood culture and urine culture Patient received IV ceftriaxone, mental status has been improved after treatment Continue with IV antibiotics (3) Hyponatremia Conclusion/Plan: May secondary to poor oral intake, vs imbalanced fluid intake Gentle hydration, Follow-up with BMP later today (4) General weakness Conclusion/Plan: Likely related to hyponatremia, UTI and deconditioning Per patient that patient has not been doing well after the CABG 5 years ago, gradually getting worse over the time. Patient would like to have drug abuse social worker consultation for placement (5) Hypomagnesemia Conclusion/Plan: Magnesium 1.5, likely related to bowel obstruction versus imbalanced oral intake Increase the risk for arrhythmia Give magnesium supplement Follow-up on magnesium level - Lab Results Lab results reviewed: Yes Fish Bones: 08/18/23 11:22 08/18/23 11:22
[2023-08-18] MEDS: SODIUM CHLORIDE FLUSH 0.9% 10 ML SYRINGE IVP SCH (15:55)
[2023-08-18] MEDS ORDERED: SODIUM CHLORIDE 0.9% 1,000 ML IV SCH (16:00)
[2023-08-18 17:13] LABS: HCT - HEMATOCRIT 40.2 % (42.0-52.0); HGB - HEMOGLOBIN 13.6 g/dL (14.0-18.0); MEAN CORPUSCULAR HEMOGLOBIN 29.8 pg (27.0-31.0); MEAN CORPUSCULAR HGB CONC 33.8 g/dL (32.0-36.0); MEAN CORPUSCULAR VOLUME 88.2 fL (80.0-94.0); MEAN PLATELET VOLUME 10.1 fL (7.4-11.4); RED BLOOD COUNT 4.56 10^6/uL (4.70-6.10); RED CELL DISTRIBUTION WIDTH 12.3 % (12.0-15.0); WHITE BLOOD COUNT 17.1 x10^3/uL (4.8-10.8)
[2023-08-18 17:42] LABS: ALBUMIN/GLOBULIN RATIO 1.4 (1.0-2.2); BILIRUBIN,TOTAL 1.1 mg/dL (0.2-1.0); CALCIUM 9.3 mg/dL (8.5-10.3); CREATININE 0.9 mg/dL (0.6-1.3); POTASSIUM 3.9 mmol/L (3.5-4.5); TOTAL PROTEIN 6.9 g/dL (6.4-8.9)
[2023-08-18] MEDS: oxyCODONE 5 MG TABLET PO PRN ×2 (17:53→21:55)
[2023-08-18] MEDS: ATORVASTATIN 40 MG TABLET PO SCH (21:55)
[2023-08-18] MEDS: GABAPENTIN 300 MG CAPSULE PO SCH (21:55)
[2023-08-18] MEDS ORDERED: INSULIN LISPRO 300 UNIT/3 ML PEN SUBQ STA ×2 (22:03→22:21)
[2023-08-18] MEDS: INSULIN LISPRO 300 UNIT/3 ML PEN SUBQ SCH (22:26)
[2023-08-19] MEDS: SODIUM CHLORIDE FLUSH 0.9% 10 ML SYRINGE IVP SCH ×3 (02:10→17:34)
[2023-08-19 06:00] LABS: BASOPHILS % (AUTO) 0.3 %; EOSINOPHILS # (AUTO) 0.1 10^3/uL (0.0-0.7); EOSINOPHILS % (AUTO) 0.9 %; HCT - HEMATOCRIT 37.3 % (42.0-52.0); HGB - HEMOGLOBIN 12.5 g/dL (14.0-18.0); LYMPHOCYTES % (AUTO) 6.3 %; MEAN CORPUSCULAR HEMOGLOBIN 29.4 pg (27.0-31.0); MEAN CORPUSCULAR HGB CONC 33.5 g/dL (32.0-36.0); MEAN CORPUSCULAR VOLUME 87.8 fL (80.0-94.0); MEAN PLATELET VOLUME 10.5 fL (7.4-11.4); MONOCYTES # (AUTO) 1.2 10^3/uL (0.0-1.0); MONOCYTES % (AUTO) 7.5 %; NEUTROPHILS # (AUTO) 13.3 10^3/uL (1.5-6.6); NEUTROPHILS % (AUTO) 84.1 %; PLT - PLATELET COUNT 260 10^3/uL (130-450); RED BLOOD COUNT 4.25 10^6/uL (4.70-6.10); RED CELL DISTRIBUTION WIDTH 12.3 % (12.0-15.0); WHITE BLOOD COUNT 15.8 x10^3/uL (4.8-10.8)
[2023-08-19 06:13] LABS: CALCIUM 8.6 mg/dL (8.5-10.3); CREATININE 0.7 mg/dL (0.6-1.3); POTASSIUM 4.2 mmol/L (3.5-4.5)
[2023-08-19] MEDS: LEVOTHYROXINE 100 MCG TABLET PO SCH (06:18)
[2023-08-19] MEDS: INSULIN LISPRO 300 UNIT/3 ML PEN SUBQ SCH ×4 (08:08→20:43)
[2023-08-19] MEDS: ISOSORBIDE MONONITRATE ER 30 MG TABLET PO SCH (08:09)
[2023-08-19] MEDS: FLUoxetine 10 MG CAPSULE PO SCH (08:10)
[2023-08-19] MEDS: TAMSULOSIN 0.4 MG CAPSULE PO SCH (08:10)
[2023-08-19] MEDS: ASPIRIN EC 81 MG TABLET PO SCH (08:11)
[2023-08-19] MEDS ORDERED: METOPROLOL SUCCINATE 50 MG TABLET PO SCH (09:00)
[2023-08-19] MEDS ORDERED: amLODIPine 5 MG TABLET PO SCH (09:00)
[2023-08-19] MEDS ORDERED: cefTRIAXone 2 GM in SODIUM CHLORIDE 0.9% MINIBAG 100 ML IV SCH (09:00)
[2023-08-19 09:54] LABS: ESTIMATED AVERAGE GLUCOSE 223 mg/dL (70-100); HEMOGLOBIN A1c% 9.4 % (4.27-6.07)
[2023-08-19] MEDS: oxyCODONE 5 MG TABLET PO PRN ×3 (12:09→21:30)
--- NOTE | 2023-08-19 15:08 | PHARMACY PROGRESS NOTE ---
- Best Possible Medication History Admit Date and Time: 08/18/23 1423 Processed by: Pharmacy Medication History completed: Yes Patient Interview: Pt unable to participate Secondary Source(s): Pharmacy records, Insurance records As the person ultimately responsible for medication therapy, providers are able to order a medication from an existing home medication list in [facility] via the "Reconcile Routine" prior to Confirmation of that medication by director of operations support. Such practice is discouraged except when the physician, in their clinical judgment, deems that a medical need exists for a medication without regard to previous use. med rec completed without patient interview using pharmacy and insurance records due to possible covid-19
--- NOTE | 2023-08-19 15:10 | PROVIDER PROGRESS NOTE ---
Assessment/Plan - Problem List (1) UTI (urinary tract infection) Assessment/Plan: Leukocytosis, elevated lactic acid, UA positive Chronic Albret user Blood culture result pending and is neg to date. Urine culture is growing a gram neg colleen. Patient started on IV ceftriaxone, mental status has been improved after treatment started Plan: Continue with IV antibiotics Await cx (2) Newly diagnosed diabetes Assessment/Plan: Glu was 400 yesterday Hyperglycemia persists. No known history of diabetes, however blood sugar 200-300 His A1c was 6.5 in 2021. Today A1c is 9.4 Plan: Started insulin sliding scale. Today I will adjust to DM diet He will need DM education Nutrition consult (3) Odynophagia Conclusion/Plan: Patient told his nurse that it hurts to swallow, liquids, warm, solid or cold Plan: We will start empiric Protonix ac and also empiric oral antifungal (4) Hyponatremia Conclusion/Plan: May be secondary to poor oral intake vs imbalanced fluid intake vs (most likely) pseudohyponatremia from hyperglycemia Na 130 yesterday >> 132 today Plan: Cont gentle NS hydration Follow BMP q12h or daily (5) General weakness Conclusion/Plan: Likely related to hyponatremia, UTI and deconditioning Per patient that patient has not been doing well after the CABG 5 years ago, gradually getting worse over the time. Plan: Will check orthostatics Will have PT ad OT eval pt Patient would like to have secondary social studies teacher consultation for placement (6) Hypomagnesemia Conclusion/Plan: Magnesium 1.5, likely related to bowel obstruction versus imbalanced oral intake Increase the risk for arrhythmia Plan: Replace magnesium supplemental Follow-up on magnesium level (7) CAD He is s/p CABG Plan: Continue with isosorbide, aspirin, metoprolol and Lipitor (8) HTN Plan: Cont amlodipine, metoprolol w/ hold parameters (9) Chronic indwelling Albert Plan: assure Folet was changed at admission Continue home dose Flomax Give oxycodone as needed due to complaints of penis pain from the irritation of the Albert (10) Depression Plan: Cont Prozac 20 mg daily as home dose (11) Hypothyroidism Plan: Check TSH Continue Levthyroxine 100 mcg (12) DORIS on CPAP Plan: Continue home CPAP, brought in his machine - Current Meds Current Meds: Current Medications Generic Name Dose Route Start Last Admin Trade Name Silva PRN Reason Stop Dose Admin Amlodipine Besylate 10 mg 08/19/23 09:00 08/19/23 08:11 Amlodipine 5 Mg Tablet PO 10 mg DAILY BRYCE Administration Aspirin 81 mg 08/19/23 09:00 08/19/23 08:11 Aspirin Ec 81 Mg Tablet PO 81 mg DAILY BRYCE Administration Atorvastatin Calcium 40 mg 08/18/23 21:00 08/18/23 21:55 Atorvastatin 40 Mg Tablet PO 40 mg QPM BRYCE Administration Fluoxetine HCl 20 mg 08/19/23 09:00 08/19/23 08:10 Fluoxetine 10 Mg Capsule PO 20 mg DAILY BRYCE Administration Gabapentin 300 mg 08/18/23 21:00 08/18/23 21:55 Gabapentin 300 Mg Capsule PO 300 mg HS BRYCE Administration Ceftriaxone Sodium 2 gm/ 100 mls @ 200 mls/hr 08/19/23 09:00 08/19/23 08:45 Sodium Chloride IV Infused DAILY BRYCE Infusion Insulin Human Lispro 1 - 5 unit 08/18/23 21:00 08/19/23 12:09 Insulin Lispro 300 Unit/3 Ml Pen SUBQ 4 unit 0800,1200,1700,2100 BRYCE Administration Protocol Isosorbide Mononitrate 60 mg 08/19/23 09:00 08/19/23 08:09 Isosorbide Mononitrate Er 30 Mg Tablet PO 60 mg DAILY BRYCE Administration Levothyroxine Sodium 100 mcg 08/19/23 07:00 08/19/23 06:18 Levothyroxine 100 Mcg Tablet PO 100 mcg QDAC BRYCE Administration Metoprolol Succinate 50 mg 08/19/23 09:00 08/19/23 08:11 Metoprolol Succinate 50 Mg Tablet PO 50 mg DAILY BRYCE Administration Oxycodone HCl 5 mg 08/18/23 17:16 08/19/23 12:09 Oxycodone 5 Mg Tablet PO 5 mg Q4HR PRN Administration Moderate Pain (Level 4-6) Sodium Chloride 10 ml 08/18/23 17:00 08/19/23 12:10 Sodium Chloride Flush 0.9% 10 Ml Syringe IVP 10 ml 0100,0900,1700 BRYCE Administration Tamsulosin HCl 0.4 mg 08/19/23 09:00 08/19/23 08:10 Tamsulosin 0.4 Mg Capsule PO 0.4 mg DAILY BRYCE Administration - Lab Result Fish Bone Diagrams: 08/19/23 05:30 08/19/23 05:30 - Additional Planning My Orders: My Active Orders 08/19/23 Dinner DIET [Soft Mechanical Diet] [DIET] 08/20/23 07:00 Pantoprazole [Protonix] 40 mg PO QDAC Subjective - Subjective Nursing Reports: Other (Is more alert, was able to swalow, complained of pain during swallowing to his RN) Objective Vital Signs: Vital Signs - 24 hr 08/18/23 08/18/23 08/18/23 15:10 16:00 23:52 Temperature 36.3 C L 36.4 C L 36.5 C Heart Rate [ 85 86 97 Apical] Heart Rate [ Brachial] Respiratory 16 18 18 Rate Blood Pressure 138/75 H 137/69 H [Left Brachial artery] O2 Saturation 95 97 08/19/23 08/19/23 08/19/23 00:09 02:16 08:00 Temperature 36.2 C L Heart Rate [ Apical] Heart Rate [ 99 85 Brachial] Respiratory 18 Rate Blood Pressure 177/74 H 158/71 H 161/65 H [Left Brachial artery] O2 Saturation 94 94 Oxygen O2 Source Room air I&O (Last 24 Hrs): Intake and Output Totals x24h 08/17/23 08/18/23 08/19/23 23:59 23:59 23:59 Intake Total 4259.205 6335 Output Total 1200 525 Balance -50.002 900 General: Alert (Exam done remotely due to isolation, as per Infec RN) HEENT: Mucous membr. moist/pink Neck: Supple Neuro: Alert Cardiovascular: Regular rate Respiratory: No respiratory distress Abdomen: Soft Extremities: No clubbing - Results Results: Laboratory Results WBC 15.8 x10^3/uL (4.8-10.8) H 08/19/23 05:30 RBC 4.25 10^6/uL (4.70-6.10) L 08/19/23 05:30 Hgb 12.5 g/dL (14.0-18.0) L 08/19/23 05:30 Hct 37.3 % (42.0-52.0) L 08/19/23 05:30 MCV 87.8 fL (80.0-94.0) 08/19/23 05:30 MCH 29.4 pg (27.0-31.0) 08/19/23 05:30 MCHC 33.5 g/dL (32.0-36.0) 08/19/23 05:30 RDW 12.3 % (12.0-15.0) 08/19/23 05:30 Plt Count 260 10^3/uL (130-450) 08/19/23 05:30 MPV 10.5 fL (7.4-11.4) 08/19/23 05:30 Neut # (Auto) 13.3 10^3/uL (1.5-6.6) H 08/19/23 05:30 Lymph # (Auto) 1.0 10^3/uL (1.5-3.5) L 08/19/23 05:30 [place] # (Auto) 1.2 10^3/uL (0.0-1.0) H 08/19/23 05:30 Eos # (Auto) 0.1 10^3/uL (0.0-0.7) 08/19/23 05:30 Baso # (Auto) 0.0 10^3/uL (0.0-0.1) 08/19/23 05:30 Absolute Nucleated RBC 0.00 x10^3/uL 08/19/23 05:30 Nucleated RBC % 0.0 /100WBC 08/19/23 05:30 Sodium 132 mmol/L (135-145) L 08/19/23 05:30 Potassium 4.2 mmol/L (3.5-4.5) 08/19/23 05:30 Chloride 99 mmol/L (101-111) L 08/19/23 05:30 Carbon Dioxide 28 mmol/L (21-32) 08/19/23 05:30 Anion Gap 5.0 (6-13) L 08/19/23 05:30 BUN 16 mg/dL (6-20) 08/19/23 05:30 Creatinine 0.7 mg/dL (0.6-1.3) 08/19/23 05:30 Estimated GFR (MDRD) 108 (>89) 08/19/23 05:30 Glucose 292 mg/dL (74-104) H 08/19/23 05:30 POC Whole Bld Glucose 317 mg/dL (70 - 100) H 08/19/23 11:51 Estimat Average Glucose 223 mg/dL (70-100) H 08/19/23 05:30 Hemoglobin A1c % 9.4 % (4.27-6.07) H 08/19/23 05:30 Lactic Acid 2.4 mmol/L (0.5-2.2) H 08/18/23 16:47 Calcium 8.6 mg/dL (8.5-10.3) 08/19/23 05:30 Magnesium 2.0 mg/dL (1.7-2.3) 08/18/23 16:47 Total Bilirubin 1.1 mg/dL (0.2-1.0) H 08/18/23 16:47 AST 12 IU/L (10-42) 08/18/23 16:47 ALT 16 IU/L (10-60) 08/18/23 16:47 Alkaline Phosphatase 79 IU/L (42-121) 08/18/23 16:47 B-Natriuretic Peptide 77 pg/mL (5-100) 08/19/23 05:30 Total Protein 6.9 g/dL (6.4-8.9) 08/18/23 16:47 Albumin 4.0 g/dL (3.2-5.5) 08/18/23 16:47 Globulin 2.9 g/dL (2.1-4.2) 08/18/23 16:47 Albumin/Globulin Ratio 1.4 (1.0-2.2) 08/18/23 16:47 Lipase < 10 U/L (11-82) L 08/18/23 11:22 Urine Color DARK YELLOW 08/18/23 10:38 Urine Clarity CLOUDY (CLEAR) 08/18/23 10:38 Urine pH 6.0 PH (5.0-7.5) 08/18/23 10:38 Ur Specific [place] >=1.030 (1.002-1.030) H 08/18/23 10:38 Urine Protein 100 mg/dL (NEGATIVE) H 08/18/23 10:38 Urine Glucose (UA) 500 mg/dL (NEGATIVE) H 08/18/23 10:38 Urine Ketones 15 mg/dL (NEGATIVE) H 08/18/23 10:38 Urine Occult Blood LARGE (NEGATIVE) H 08/18/23 10:38 Urine Nitrite NEGATIVE (NEGATIVE) 08/18/23 10:38 Urine Bilirubin NEGATIVE (NEGATIVE) 08/18/23 10:38 Urine Urobilinogen 4 E.U./dL (NORMAL) H 08/18/23 10:38 Ur Leukocyte Esterase TRACE (NEGATIVE) H 08/18/23 10:38 Urine RBC 11-25 /HPF (0-5) H 08/18/23 10:38 Urine WBC 11-25 /HPF (0-3) H 08/18/23 10:38 Ur Squamous Epith Cells RARE Squamous (<= Few) 08/18/23 10:38 Amorphous Sediment Moderate /LPF 08/18/23 10:38 Urine Bacteria Moderate /HPF (None Seen) H 08/18/23 10:38 Ur Microscopic Review INDICATED 08/18/23 10:38 Urine Culture Comments INDICATED 08/18/23 10:38 SARS-CoV-2 (PCR) NOT DETECTED 08/18/23 22:05 - Procedures Procedures: Procedures CARPAL TUNNEL RELEASE (02/24/13) CATARAC PHACOEMULS/ASPIR (06/22/14) INSERT LENS AT CATAR EXT (06/22/14) INSPECTION OF LOWER INTESTINAL TRACT, ENDO (08/25/17) TOTAL KNEE REPLACEMENT (08/05/13) Sepsis Event Note (H) - Evaluation Current Stage of Sepsis: Ruled out
[2023-08-19] MEDS: SODIUM CHLORIDE 0.9% 1,000 ML IV SCH (17:35)
[2023-08-19] MEDS: NYSTATIN 500000 UNITS/5 ML UDC PO SCH ×2 (17:35→20:45)
[2023-08-19] MEDS ORDERED: CALCIUM CARBONATE CHEW 500 MG TABLET PO PRN (18:38)
[2023-08-19] MEDS: ATORVASTATIN 40 MG TABLET PO SCH (20:43)
[2023-08-19] MEDS: GABAPENTIN 300 MG CAPSULE PO SCH (20:43)
[2023-08-20] MEDS: SODIUM CHLORIDE FLUSH 0.9% 10 ML SYRINGE IVP SCH ×3 (00:44→17:31)
[2023-08-20] MEDS: SODIUM CHLORIDE 0.9% 1,000 ML IV SCH ×2 (00:46→17:30)
[2023-08-20] MEDS: oxyCODONE 5 MG TABLET PO PRN ×3 (00:47→17:30)
[2023-08-20 05:54] LABS: BASOPHILS % (AUTO) 0.4 %; EOSINOPHILS # (AUTO) 0.3 10^3/uL (0.0-0.7); EOSINOPHILS % (AUTO) 2.3 %; HCT - HEMATOCRIT 35.4 % (42.0-52.0); LYMPHOCYTES # (AUTO) 0.7 10^3/uL (1.5-3.5); LYMPHOCYTES % (AUTO) 6.4 %; MEAN CORPUSCULAR HEMOGLOBIN 29.6 pg (27.0-31.0); MEAN CORPUSCULAR HGB CONC 33.9 g/dL (32.0-36.0); MEAN CORPUSCULAR VOLUME 87.4 fL (80.0-94.0); MEAN PLATELET VOLUME 10.3 fL (7.4-11.4); MONOCYTES # (AUTO) 0.8 10^3/uL (0.0-1.0); MONOCYTES % (AUTO) 7.3 %; NEUTROPHILS # (AUTO) 9.1 10^3/uL (1.5-6.6); NEUTROPHILS % (AUTO) 82.2 %; PLT - PLATELET COUNT 253 10^3/uL (130-450); RED BLOOD COUNT 4.05 10^6/uL (4.70-6.10); RED CELL DISTRIBUTION WIDTH 12.3 % (12.0-15.0)
[2023-08-20 06:07] LABS: CALCIUM 8.8 mg/dL (8.5-10.3); CREATININE 0.7 mg/dL (0.6-1.3); POTASSIUM 3.5 mmol/L (3.5-4.5)
[2023-08-20] MEDS: LEVOTHYROXINE 100 MCG TABLET PO SCH (06:12)
[2023-08-20] MEDS: PANTOPRAZOLE 40 MG TABLET PO SCH (06:12)
[2023-08-20 06:20] LABS: THYROID STIMULATING HORMONE 4.32 uIU/mL (0.34-5.60)
[2023-08-20] MEDS: INSULIN GLARGINE-YFGN 300 UNIT/3 ML PEN SUBQ SCH (08:53)
[2023-08-20] MEDS: INSULIN LISPRO 300 UNIT/3 ML PEN SUBQ SCH ×4 (08:53→21:23)
[2023-08-20] MEDS: METOPROLOL SUCCINATE 50 MG TABLET PO SCH (08:54)
[2023-08-20] MEDS: TAMSULOSIN 0.4 MG CAPSULE PO SCH (08:54)
[2023-08-20] MEDS: ASPIRIN EC 81 MG TABLET PO SCH (08:54)
[2023-08-20] MEDS: ISOSORBIDE MONONITRATE ER 30 MG TABLET PO SCH (08:55)
[2023-08-20] MEDS: amLODIPine 5 MG TABLET PO SCH (08:55)
[2023-08-20] MEDS: FLUoxetine 10 MG CAPSULE PO SCH (08:55)
[2023-08-20] MEDS ORDERED: cefTRIAXone 1 GM in SODIUM CHLORIDE 0.9% MINIBAG 100 ML IV SCH (09:00)
[2023-08-20] MEDS: NYSTATIN 500000 UNITS/5 ML UDC PO SCH ×4 (10:06→19:03)
--- NOTE | 2023-08-20 15:37 | PROVIDER PROGRESS NOTE ---
Assessment/Plan - Problem List (1) Infection due to Enterobacter cloacae Assessment/Plan: Pt had Leukocytosis, elevated lactic acid, UA positive, Chronic Albert user Blood culture result pending but is neg to date. Urine culture is growing Enterobacter cloacae which is Resis to Cefazolin but sens to Cefepime, not tested to Ceftriaxone Plan: Will change IV antibiotic from Rocephin to Cefepime, this was discussed with Whitney in pharmacy Await final blood cx results too (2) UTI (urinary tract infection) Assessment/Plan: Leukocytosis, elevated lactic acid, UA positive, Chronic Albert user Blood culture result pending but is neg to date. Urine culture is growing Enterobacter cloacae Patient started on IV ceftriaxone, mental status has been improved after treatm ent started Plan: Continue with IV antibiotics but will change Rocephin to Cefepime Await final blood cx results too (3) Exposure to COVID-19 virus Assessment/Plan: As per Notes entered by our Infection counter intelligence agent, Lona Kim: Patient is SARs CO-V neg. who was with him until this am is positive. CDC states a person who has a high risk of exposure and is immunocompromised should wear source control for 10 days after the last exposure. Instead of source control, Aerosol precautions will be in place. He may be retested for COVID after 7 days of last exposure. If he remains COVID negative, and does not have symptoms, he may be released from precautions. If he becomes positive, he must remain in isolation for the 10 days since symptoms began or if no symptoms from the time of positive COVID test. If he becomes symptomatic, a COVID test may be performed the day after symptoms started. (4) Newly diagnosed diabetes Assessment/Plan: Glu was 400 and Hyperglycemia persists w/ glu 200-300. No known history of diabetes His A1c was 6.5 in 2021. At this admission his A1c is 9.4 Plan: Started insulin sliding scale. I added Semglee daily today Cont a DM diet He will need DM education Nutrition consult (5) Odynophagia Conclusion/Plan: Patient told his nurse that it hurts to swallow, liquids, warm, solid or cold Plan: Cont empiric Protonix ac and also empiric oral antifungal (6) General weakness Conclusion/Plan: Likely related to hyponatremia, UTI and deconditioning Per patient that patient has not been doing well after the CABG 5 years ago, gradually getting worse over the time. Today the specifics were learned: he is mostly bedbound or in a wheelchair for the past 2 mos Plan: Will check orthostatics Will have PT and OT eval pt Patient would like to have social work supervisor consultation for permanent placement after SNF, he agrees to SNF (7) Hypomagnesemia Conclusion/Plan: Magnesium 1.5, likely related to bowel obstruction versus imbalanced oral intake Increase the risk for arrhythmia Plan: Replace magnesium supplemental Follow-up magnesium level intermittently (8) CAD He is s/p CABG Plan: Continue with isosorbide, aspirin, metoprolol and Lipitor (9) HTN Plan: Cont amlodipine, metoprolol w/ hold parameters (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 Plan: Will assure Albert was changed at admission Continue home dose Flomax Give oxycodone as needed due to complaints of penis pain from the irritation of the Albert (11) Depression Plan: Cont Prozac 20 mg daily as home dose (12) Hypothyroidism TSH good at 4.32 Plan: Continue Levthyroxine 100 mcg (13) DORIS on CPAP Plan: Continue home CPAP, brought in his machine (14) Hyponatremia Conclusion/Plan: Resolved Possibly from poor oral intake vs imbalanced fluid intake vs (most likely) pseudohyponatremia from hyperglycemia Na 130 >> 135 now Plan: Cont gentle NS hydration, I will titrate NS down to off Follow BMP daily - Current Meds Current Meds: Current Medications Generic Name Dose Route Start Last Admin Trade Name [id number] PRN Reason Stop Dose Admin Amlodipine Besylate 10 mg 08/19/23 15:28 08/20/23 08:55 Amlodipine 5 Mg Tablet PO 10 mg DAILY BRYCE Administration Aspirin 81 mg 08/19/23 09:00 08/20/23 08:54 Aspirin Ec 81 Mg Tablet PO 81 mg DAILY BRYCE Administration Atorvastatin Calcium 40 mg 08/18/23 21:00 08/19/23 20:43 Atorvastatin 40 Mg Tablet PO 40 mg QPM BRYCE Administration Fluoxetine HCl 20 mg 08/19/23 09:00 08/20/23 08:55 Fluoxetine 10 Mg Capsule PO 20 mg DAILY BRYCE Administration Gabapentin 300 mg 08/18/23 21:00 08/19/23 20:43 Gabapentin 300 Mg Capsule PO 300 mg HS BRYCE Administration Ceftriaxone Sodium 1 gm/ 100 mls @ 200 mls/hr 08/20/23 09:00 08/20/23 10:36 Sodium Chloride IV Infused DAILY BRYCE Infusion Sodium Chloride 1,000 mls @ 83.333 mls/hr 08/19/23 16:00 08/20/23 05:34 Normal Saline 0.9% IV 0 mls/hr .Q12H BRYCE Infusion Insulin Glargine-yfgn 10 unit 08/20/23 09:00 08/20/23 08:53 Insulin Glargine-Yfgn 300 Unit/3 Ml Pen SUBQ 10 unit DAILY BRYCE Administration Insulin Human Lispro 1 - 9 unit 08/19/23 21:00 08/20/23 12:06 Insulin Lispro 300 Unit/3 Ml Pen SUBQ 5 unit 0800,1200,1700,2100 BRYCE Administration Protocol Isosorbide Mononitrate 60 mg 08/19/23 09:00 08/20/23 08:55 Isosorbide Mononitrate Er 30 Mg Tablet PO 60 mg DAILY BRYCE Administration Levothyroxine Sodium 100 mcg 08/19/23 07:00 08/20/23 06:12 Levothyroxine 100 Mcg Tablet PO 100 mcg QDAC BRYCE Administration Metoprolol Succinate 50 mg 08/19/23 15:29 08/20/23 08:54 Metoprolol Succinate 50 Mg Tablet PO 50 mg DAILY BRYCE Administration Nystatin 5 ml 08/19/23 17:00 08/20/23 14:12 Nystatin 226629 Units/5 Ml Udc PO 5 ml QID BRYCE Administration Oxycodone HCl 5 mg 08/18/23 17:16 08/20/23 14:13 Oxycodone 5 Mg Tablet PO 5 mg Q4HR PRN Administration Moderate Pain (Level 4-6) Pantoprazole Sodium 40 mg 08/20/23 07:00 08/20/23 06:12 Pantoprazole 40 Mg Tablet PO 40 mg QDAC BRYCE Administration Sodium Chloride 10 ml 08/18/23 17:00 08/20/23 14:12 Sodium Chloride Flush 0.9% 10 Ml Syringe IVP Not Given 0100,0900,1700 BRYCE Tamsulosin HCl 0.4 mg 08/19/23 09:00 08/20/23 08:54 Tamsulosin 0.4 Mg Capsule PO 0.4 mg DAILY BRYCE Administration - Lab Result Fish Bone Diagrams: 08/20/23 05:26 08/20/23 05:26 - Additional Planning My Orders: My Active Orders 08/19/23 15:24 Orthostatic [Vital Signs - Orthostatic] [RC] DAILY 08/19/23 15:25 Diabetic Education [RC] ONCE 08/19/23 15:28 amLODIPine [Norvasc] 10 mg PO DAILY 08/19/23 15:29 Metoprolol Succinate [Toprol Xl] 50 mg PO DAILY 08/19/23 16:00 Sodium Chloride 0.9% [Normal Saline 0.9%] 1,000 ml IV 83.333 mls/hr 08/19/23 Dinner DIET [Soft Mechanical Diet] [DIET] 08/19/23 17:00 Nystatin [Mycostatin] 5 ml PO QID 08/19/23 18:38 Calcium Carbonate [Tums] 500 mg PO Q6H PRN 08/19/23 21:00 Insulin Lispro [Humalog Kwikpen U-100] 1 - 9 unit SUBQ 0800,1200,1700,2100 08/20/23 Evaluate and Treat OT [OT] Routine Evaluate and Treat PT [PT] Routine 08/20/23 07:00 Pantoprazole [Protonix] 40 mg PO QDAC 08/20/23 09:00 Insulin Glargine-Yfgn [Semglee] 10 unit SUBQ DAILY cefTRIAXone [Rocephin] 1 gm Sodium Chloride 0.9% Minibag [Normal Saline 0.9% Minibag] 100 ml IV DAILY 08/20/23 Dinner Carb-controlled Diet [DIET] 08/20/23 17:00 Cholecalciferol [Vitamin D3] 50 mcg PO DAILY 08/21/23 08:00 Multivitamin W/Minerals [Theragran M] 1 tab PO DAILYWM Subjective - Subjective Patient Reports: Resting Comfortably, No Complaints Objective Vital Signs: Vital Signs - 24 hr 08/19/23 08/20/23 08/20/23 16:00 00:40 08:00 Temperature 35.9 C L 36.6 C 36.5 C Heart Rate [ 89 88 87 Brachial] Respiratory 16 20 18 Rate Blood Pressure 126/70 127/70 135/73 H [Left Brachial artery] O2 Saturation 95 94 95 Oxygen O2 Source Room air I&O (Last 24 Hrs): Intake and Output Totals x24h 08/18/23 08/19/23 08/20/23 23:59 23:59 23:59 Intake Total 9149.782 7548 1818.607 Output Total 1200 775 265 Balance -50.002 1530 1553.607 General: Alert (exam done remotely due to isolation), No acute distress HEENT: Mucous membr. moist/pink Neck: Supple Neuro: Alert, Non Focal Cardiovascular: Regular rate Respiratory: No respiratory distress Abdomen: Soft Extremities: No clubbing, No edema - Results Results: Laboratory Results WBC 11.0 x10^3/uL (4.8-10.8) H 08/20/23 05:26 RBC 4.05 10^6/uL (4.70-6.10) L 08/20/23 05:26 Hgb 12.0 g/dL (14.0-18.0) L 08/20/23 05:26 Hct 35.4 % (42.0-52.0) L 08/20/23 05:26 MCV 87.4 fL (80.0-94.0) 08/20/23 05:26 MCH 29.6 pg (27.0-31.0) 08/20/23 05:26 MCHC 33.9 g/dL (32.0-36.0) 08/20/23 05:26 RDW 12.3 % (12.0-15.0) 08/20/23 05:26 Plt Count 253 10^3/uL (130-450) 08/20/23 05:26 MPV 10.3 fL (7.4-11.4) 08/20/23 05:26 Neut # (Auto) 9.1 10^3/uL (1.5-6.6) H 08/20/23 05:26 Lymph # (Auto) 0.7 10^3/uL (1.5-3.5) L 08/20/23 05:26 [place] # (Auto) 0.8 10^3/uL (0.0-1.0) 08/20/23 05:26 Eos # (Auto) 0.3 10^3/uL (0.0-0.7) 08/20/23 05:26 Baso # (Auto) 0.0 10^3/uL (0.0-0.1) 08/20/23 05:26 Absolute Nucleated RBC 0.00 x10^3/uL 08/20/23 05:26 Nucleated RBC % 0.0 /100WBC 08/20/23 05:26 Sodium 135 mmol/L (135-145) 08/20/23 05:26 Potassium 3.5 mmol/L (3.5-4.5) 08/20/23 05:26 Chloride 99 mmol/L (101-111) L 08/20/23 05:26 Carbon Dioxide 29 mmol/L (21-32) 08/20/23 05:26 Anion Gap 7.0 (6-13) 08/20/23 05:26 BUN 15 mg/dL (6-20) 08/20/23 05:26 Creatinine 0.7 mg/dL (0.6-1.3) 08/20/23 05:26 Estimated GFR (MDRD) 108 (>89) 08/20/23 05:26 Glucose 199 mg/dL (74-104) H 08/20/23 05:26 POC Whole Bld Glucose 229 mg/dL (70 - 100) H 08/20/23 11:36 Estimat Average Glucose 223 mg/dL (70-100) H 08/19/23 05:30 Hemoglobin A1c % 9.4 % (4.27-6.07) H 08/19/23 05:30 Lactic Acid 2.4 mmol/L (0.5-2.2) H 08/18/23 16:47 Calcium 8.8 mg/dL (8.5-10.3) 08/20/23 05:26 Magnesium 2.0 mg/dL (1.7-2.3) 08/18/23 16:47 Total Bilirubin 1.1 mg/dL (0.2-1.0) H 08/18/23 16:47 AST 12 IU/L (10-42) 08/18/23 16:47 ALT 16 IU/L (10-60) 08/18/23 16:47 Alkaline Phosphatase 79 IU/L (42-121) 08/18/23 16:47 B-Natriuretic Peptide 77 pg/mL (5-100) 08/19/23 05:30 Total Protein 6.9 g/dL (6.4-8.9) 08/18/23 16:47 Albumin 4.0 g/dL (3.2-5.5) 08/18/23 16:47 Globulin 2.9 g/dL (2.1-4.2) 08/18/23 16:47 Albumin/Globulin Ratio 1.4 (1.0-2.2) 08/18/23 16:47 Lipase < 10 U/L (11-82) L 08/18/23 11:22 TSH 4.32 uIU/mL (0.34-5.60) 08/20/23 05:26 Urine Color DARK YELLOW 08/18/23 10:38 Urine Clarity CLOUDY (CLEAR) 08/18/23 10:38 Urine pH 6.0 PH (5.0-7.5) 08/18/23 10:38 Ur Specific [place] >=1.030 (1.002-1.030) H 08/18/23 10:38 Urine Protein 100 mg/dL (NEGATIVE) H 08/18/23 10:38 Urine Glucose (UA) 500 mg/dL (NEGATIVE) H 08/18/23 10:38 Urine Ketones 15 mg/dL (NEGATIVE) H 08/18/23 10:38 Urine Occult Blood LARGE (NEGATIVE) H 08/18/23 10:38 Urine Nitrite NEGATIVE (NEGATIVE) 08/18/23 10:38 Urine Bilirubin NEGATIVE (NEGATIVE) 08/18/23 10:38 Urine Urobilinogen 4 E.U./dL (NORMAL) H 08/18/23 10:38 Ur Leukocyte Esterase TRACE (NEGATIVE) H 08/18/23 10:38 Urine RBC 11-25 /HPF (0-5) H 08/18/23 10:38 Urine WBC 11-25 /HPF (0-3) H 08/18/23 10:38 Ur Squamous Epith Cells RARE Squamous (<= Few) 08/18/23 10:38 Amorphous Sediment Moderate /LPF 08/18/23 10:38 Urine Bacteria Moderate /HPF (None Seen) H 08/18/23 10:38 Ur Microscopic Review INDICATED 08/18/23 10:38 Urine Culture Comments INDICATED 08/18/23 10:38 SARS-CoV-2 (PCR) NOT DETECTED 08/18/23 22:05 - Procedures Procedures: Procedures CARPAL TUNNEL RELEASE (02/24/13) CATARAC PHACOEMULS/ASPIR (06/22/14) INSERT LENS AT CATAR EXT (06/22/14) INSPECTION OF LOWER INTESTINAL TRACT, ENDO (08/25/17) TOTAL KNEE REPLACEMENT (08/05/13) Sepsis Event Note (H) - Evaluation Current Stage of Sepsis: Ruled out
[2023-08-20] MEDS: CHOLECALCIFEROL 25 MCG TABLET PO SCH (17:30)
[2023-08-20] MEDS: GABAPENTIN 300 MG CAPSULE PO SCH (19:03)
[2023-08-20] MEDS: ATORVASTATIN 40 MG TABLET PO SCH (19:03)
[2023-08-20] MEDS: CEFEPIME 1 GM in SODIUM CHLORIDE 0.9% MINIBAG 100 ML IV SCH (21:27)
[2023-08-21] MEDS: SODIUM CHLORIDE FLUSH 0.9% 10 ML SYRINGE IVP SCH ×3 (00:05→17:15)
[2023-08-21 05:49] LABS: BASOPHILS % (AUTO) 0.5 %; EOSINOPHILS # (AUTO) 0.3 10^3/uL (0.0-0.7); EOSINOPHILS % (AUTO) 3.6 %; HCT - HEMATOCRIT 34.7 % (42.0-52.0); HGB - HEMOGLOBIN 11.6 g/dL (14.0-18.0); LYMPHOCYTES # (AUTO) 0.5 10^3/uL (1.5-3.5); LYMPHOCYTES % (AUTO) 6.3 %; MEAN CORPUSCULAR HEMOGLOBIN 29.4 pg (27.0-31.0); MEAN CORPUSCULAR HGB CONC 33.4 g/dL (32.0-36.0); MEAN CORPUSCULAR VOLUME 87.8 fL (80.0-94.0); MEAN PLATELET VOLUME 10.2 fL (7.4-11.4); MONOCYTES # (AUTO) 0.6 10^3/uL (0.0-1.0); MONOCYTES % (AUTO) 7.7 %; NEUTROPHILS # (AUTO) 5.8 10^3/uL (1.5-6.6); PLT - PLATELET COUNT 261 10^3/uL (130-450); RED BLOOD COUNT 3.95 10^6/uL (4.70-6.10); RED CELL DISTRIBUTION WIDTH 12.1 % (12.0-15.0); WHITE BLOOD COUNT 7.3 x10^3/uL (4.8-10.8)
[2023-08-21 06:06] LABS: CALCIUM 8.5 mg/dL (8.5-10.3); CREATININE 0.7 mg/dL (0.6-1.3); POTASSIUM 3.8 mmol/L (3.5-4.5)
[2023-08-21] MEDS: CEFEPIME 1 GM in SODIUM CHLORIDE 0.9% MINIBAG 100 ML IV SCH ×3 (06:19→22:09)
[2023-08-21] MEDS: LEVOTHYROXINE 100 MCG TABLET PO SCH (06:21)
[2023-08-21] MEDS: PANTOPRAZOLE 40 MG TABLET PO SCH (06:21)
[2023-08-21] MEDS: INSULIN GLARGINE-YFGN 300 UNIT/3 ML PEN SUBQ SCH (08:30)
[2023-08-21] MEDS: SODIUM CHLORIDE 0.9% 1,000 ML IV SCH (08:30)
[2023-08-21] MEDS: INSULIN LISPRO 300 UNIT/3 ML PEN SUBQ SCH ×4 (08:30→22:08)
[2023-08-21] MEDS: MULTIVITAMIN W/MINERALS TABLET PO SCH (08:31)
[2023-08-21] MEDS: ASPIRIN EC 81 MG TABLET PO SCH (08:31)
[2023-08-21] MEDS: CHOLECALCIFEROL 25 MCG TABLET PO SCH (08:31)
[2023-08-21] MEDS: ISOSORBIDE MONONITRATE ER 30 MG TABLET PO SCH (08:31)
[2023-08-21] MEDS: TAMSULOSIN 0.4 MG CAPSULE PO SCH (08:31)
[2023-08-21] MEDS: amLODIPine 5 MG TABLET PO SCH (08:31)
[2023-08-21] MEDS: FLUoxetine 10 MG CAPSULE PO SCH (08:31)
[2023-08-21] MEDS: NYSTATIN 500000 UNITS/5 ML UDC PO SCH ×4 (08:32→22:08)
[2023-08-21] MEDS: METOPROLOL SUCCINATE 50 MG TABLET PO SCH (08:32)
--- NOTE | 2023-08-21 15:43 | PROVIDER PROGRESS NOTE ---
Assessment/Plan - Problem List (1) Infection due to Enterobacter cloacae Assessment/Plan: Pt had Leukocytosis, elevated lactic acid, UA positive, Chronic Albert user Blood culture final result pending but is neg to date. Urine culture is growing Enterobacter cloacae which is resis to Cefazolin but sens to Cefepime, not tested to Ceftriaxone Plan: Cont the changed IV antibiotic, changed from Rocephin to Cefepime yesterday Await final blood cx results too (2) UTI (urinary tract infection) Assessment/Plan: Leukocytosis, elevated lactic acid, UA positive, Chronic Albert user Blood culture result pending but is neg to date. Urine culture is growing Enterobacter cloacae Patient started on IV ceftriaxone, mental status has been improved after treatment started Plan: Continue with IV antibiotics changed to Cefepime Await final blood cx results too (3) Exposure to COVID-19 virus Assessment/Plan: As per Notes entered by our Infection funeral director/embalmer/owner, Lona Kim: Patient is SARs CO-V neg. who was with him until this am is positive. CDC states a person who has a high risk of exposure and is immunocompromised should wear source control for 10 days after the last exposure. Instead of source control, Aerosol precautions will be in place. He may be retested for COVID after 7 days of last exposure. If he remains COVID negative, and does not have symptoms, he may be released from precautions. If he becomes positive, he must remain in isolation for the 10 days since symptoms began or if no symptoms from the time of positive COVID test. If he becomes symptomatic, a COVID test may be performed the day after symptoms started. (4) Newly diagnosed diabetes Assessment/Plan: Glu was 400 and Hyperglycemia persists w/ glu 200-300. No known history of diabetes His A1c was 6.5 in 2021. At this admission his A1c is 9.4 Plan: Cont insulin sliding scale and Semglee daily Start Metformin 500 BID Cont a DM diet He will need DM education Nutrition consult (5) Odynophagia Conclusion/Plan: Improving. Patient told his nurse that it hurts to swallow, liquids, warm, solid or cold Plan: Cont empiric Protonix ac and also empiric oral antifungal (6) General weakness Conclusion/Plan: Likely related to hyponatremia, UTI and deconditioning Per patient that patient has not been doing well after the CABG 5 years ago, gradually getting worse over the time. Today the specifics were learned: he is mostly bedbound or in a wheelchair for the past 2 mos Plan: Will check orthostatics Cont to work with PT and OT Patient would like to have social services specialist consultation for permanent placement after SNF, he agrees to SNF (7) Hypomagnesemia Conclusion/Plan: Magnesium was low, likely related to bowel obstruction versus imbalanced oral intake Increase the risk for arrhythmia Plan: Replace magnesium supplemental Follow-up magnesium level intermittently (8) CAD He is s/p CABG Plan: Continue with isosorbide, aspirin, metoprolol and Lipitor (9) HTN Plan: Cont amlodipine, metoprolol w/ hold parameters (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 Plan: Will assure Albert was changed at admission Continue home dose Flomax Give oxycodone as needed (11) Depression Plan: Cont Prozac 20 mg daily as home dose (12) Hypothyroidism TSH good at 4.32 Plan: Continue Levthyroxine 100 mcg (13) DORIS on CPAP Plan: Continue home CPAP, brought in his machine (14) Hyponatremia Conclusion/Plan: Resolved Possibly from poor oral intake vs imbalanced fluid intake vs (most likely) pseudohyponatremia from hyperglycemia Plan: Cont gentle NS hydration, I will titrate NS down to off Follow BMP daily - Current Meds Current Meds: Current Medications Generic Name Dose Route Start Last Admin Trade Name Silva PRN Reason Stop Dose Admin Amlodipine Besylate 10 mg 08/19/23 15:28 08/21/23 08:31 Amlodipine 5 Mg Tablet PO 10 mg DAILY BRYCE Administration Aspirin 81 mg 08/19/23 09:00 08/21/23 08:31 Aspirin Ec 81 Mg Tablet PO 81 mg DAILY BRYCE Administration Atorvastatin Calcium 40 mg 08/18/23 21:00 08/20/23 19:03 Atorvastatin 40 Mg Tablet PO 40 mg QPM BRYCE Administration Cholecalciferol 50 mcg 08/20/23 17:00 08/21/23 08:31 Cholecalciferol 25 Mcg Tablet PO 50 mcg DAILY BRYCE Administration Fluoxetine HCl 20 mg 08/19/23 09:00 08/21/23 08:31 Fluoxetine 10 Mg Capsule PO 20 mg DAILY BRYCE Administration Gabapentin 300 mg 08/18/23 21:00 08/20/23 19:03 Gabapentin 300 Mg Capsule PO 300 mg HS BRYCE Administration Sodium Chloride 1,000 mls @ 83.333 mls/hr 08/19/23 16:00 08/21/23 14:35 Normal Saline 0.9% IV 83.3 mls/hr .Q12H BRYCE Infusion Cefepime HCl 1 gm/ Sodium 100 mls @ 200 mls/hr 08/20/23 22:00 08/21/23 14:35 Chloride IV Infused TID BRYCE Infusion Insulin Glargine-yfgn 10 unit 08/20/23 09:00 08/21/23 08:30 Insulin Glargine-Yfgn 300 Unit/3 Ml Pen SUBQ 10 unit DAILY BRYCE Administration Insulin Human Lispro 1 - 9 unit 08/19/23 21:00 08/21/23 11:54 Insulin Lispro 300 Unit/3 Ml Pen SUBQ 3 unit 0800,1200,1700,2100 [facility] Administration Protocol Isosorbide Mononitrate 60 mg 08/19/23 09:00 08/21/23 08:31 Isosorbide Mononitrate Er 30 Mg Tablet PO 60 mg DAILY BRYCE Administration Levothyroxine Sodium 100 mcg 08/19/23 07:00 08/21/23 06:21 Levothyroxine 100 Mcg Tablet PO 100 mcg QDAC [facility] Administration Metoprolol Succinate 50 mg 08/19/23 15:29 08/21/23 08:32 Metoprolol Succinate 50 Mg Tablet PO 50 mg DAILY BRYCE Administration Multivitamins/Minerals 1 tab 08/21/23 08:00 08/21/23 08:31 Multivitamin W/Minerals Tablet PO 1 tab DAILYWM BRYCE Administration Nystatin 5 ml 08/19/23 17:00 08/21/23 14:00 Nystatin 840026 Units/5 Ml Udc PO 5 ml QID BRYCE Administration Oxycodone HCl 5 mg 08/18/23 17:16 08/20/23 17:30 Oxycodone 5 Mg Tablet PO 5 mg Q4HR PRN Administration Moderate Pain (Level 4-6) Pantoprazole Sodium 40 mg 08/20/23 07:00 08/21/23 06:21 Pantoprazole 40 Mg Tablet PO 40 mg QDAC BRYCE Administration Sodium Chloride 10 ml 08/18/23 17:00 08/21/23 08:32 Sodium Chloride Flush 0.9% 10 Ml Syringe IVP Not Given 0100,0900,1700 [facility] Tamsulosin HCl 0.4 mg 08/19/23 09:00 08/21/23 08:31 Tamsulosin 0.4 Mg Capsule PO 0.4 mg DAILY BRYCE Administration - Lab Result Fish Bone Diagrams: 08/21/23 05:17 08/21/23 05:17 - Additional Planning My Orders: My Active Orders 08/20/23 Dinner Carb-controlled Diet [DIET] 08/20/23 17:00 Cholecalciferol [Vitamin D3] 50 mcg PO DAILY 08/20/23 22:00 Cefepime [Maxipime] 1 gm Sodium Chloride 0.9% Minibag [Normal Saline 0.9% Minibag] 100 ml IV TID 08/21/23 08:00 Multivitamin W/Minerals [Theragran M] 1 tab PO DAILYWM 08/21/23 17:00 metFORMIN [Glucophage] 500 mg PO BIDWM Subjective - Subjective Patient Reports: Feeling Better, No Complaints Objective Vital Signs: Vital Signs - 24 hr 08/20/23 08/20/23 08/21/23 16:00 23:59 08:11 Temperature 36.1 C L 36.5 C 36.9 C Heart Rate [ 104 H 89 92 Brachial] Respiratory 18 18 20 Rate Blood Pressure 115/66 149/72 H 142/61 H [Left Brachial artery] O2 Saturation 94 94 94 Oxygen O2 Source Room air I&O (Last 24 Hrs): Intake and Output Totals x24h 08/19/23 08/20/23 08/21/23 23:59 23:59 23:59 Intake Total 2305 6980.049 0957.538 Output Total 775 865 700 Balance 1530 8445.631 1906.538 General: Alert (exam done remotely due to isolation), No acute distress HEENT: Mucous membr. 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), and has generalized weakness) Cardiovascular: Regular rate Respiratory: No respiratory distress Abdomen: Soft Extremities: No clubbing, No edema - Results Results: Laboratory Results WBC 7.3 x10^3/uL (4.8-10.8) 08/21/23 05:17 RBC 3.95 10^6/uL (4.70-6.10) L 08/21/23 05:17 Hgb 11.6 g/dL (14.0-18.0) L 08/21/23 05:17 Hct 34.7 % (42.0-52.0) L 08/21/23 05:17 MCV 87.8 fL (80.0-94.0) 08/21/23 05:17 MCH 29.4 pg (27.0-31.0) 08/21/23 05:17 MCHC 33.4 g/dL (32.0-36.0) 08/21/23 05:17 RDW 12.1 % (12.0-15.0) 08/21/23 05:17 Plt Count 261 10^3/uL (130-450) 08/21/23 05:17 MPV 10.2 fL (7.4-11.4) 08/21/23 05:17 Neut # (Auto) 5.8 10^3/uL (1.5-6.6) 08/21/23 05:17 Lymph # (Auto) 0.5 10^3/uL (1.5-3.5) L 08/21/23 05:17 [place] # (Auto) 0.6 10^3/uL (0.0-1.0) 08/21/23 05:17 Eos # (Auto) 0.3 10^3/uL (0.0-0.7) 08/21/23 05:17 Baso # (Auto) 0.0 10^3/uL (0.0-0.1) 08/21/23 05:17 Absolute Nucleated RBC 0.00 x10^3/uL 08/21/23 05:17 Nucleated RBC % 0.0 /100WBC 08/21/23 05:17 Sodium 134 mmol/L (135-145) L 08/21/23 05:17 Potassium 3.8 mmol/L (3.5-4.5) 08/21/23 05:17 Chloride 100 mmol/L (101-111) L 08/21/23 05:17 Carbon Dioxide 27 mmol/L (21-32) 08/21/23 05:17 Anion Gap 7.0 (6-13) 08/21/23 05:17 BUN 11 mg/dL (6-20) 08/21/23 05:17 Creatinine 0.7 mg/dL (0.6-1.3) 08/21/23 05:17 Estimated GFR (MDRD) 108 (>89) 08/21/23 05:17 Glucose 181 mg/dL (74-104) H 08/21/23 05:17 POC Whole Bld Glucose 210 mg/dL (70 - 100) H 08/21/23 10:56 Estimat Average Glucose 223 mg/dL (70-100) H 08/19/23 05:30 Hemoglobin A1c % 9.4 % (4.27-6.07) H 08/19/23 05:30 Lactic Acid 2.4 mmol/L (0.5-2.2) H 08/18/23 16:47 Calcium 8.5 mg/dL (8.5-10.3) 08/21/23 05:17 Magnesium 2.0 mg/dL (1.7-2.3) 08/18/23 16:47 Total Bilirubin 1.1 mg/dL (0.2-1.0) H 08/18/23 16:47 AST 12 IU/L (10-42) 08/18/23 16:47 ALT 16 IU/L (10-60) 08/18/23 16:47 Alkaline Phosphatase 79 IU/L (42-121) 08/18/23 16:47 B-Natriuretic Peptide 77 pg/mL (5-100) 08/19/23 05:30 Total Protein 6.9 g/dL (6.4-8.9) 08/18/23 16:47 Albumin 4.0 g/dL (3.2-5.5) 08/18/23 16:47 Globulin 2.9 g/dL (2.1-4.2) 08/18/23 16:47 Albumin/Globulin Ratio 1.4 (1.0-2.2) 08/18/23 16:47 Lipase < 10 U/L (11-82) L 08/18/23 11:22 TSH 4.32 uIU/mL (0.34-5.60) 08/20/23 05:26 Urine Color DARK YELLOW 08/18/23 10:38 Urine Clarity CLOUDY (CLEAR) 08/18/23 10:38 Urine pH 6.0 PH (5.0-7.5) 08/18/23 10:38 Ur Specific [place] >=1.030 (1.002-1.030) H 08/18/23 10:38 Urine Protein 100 mg/dL (NEGATIVE) H 08/18/23 10:38 Urine Glucose (UA) 500 mg/dL (NEGATIVE) H 08/18/23 10:38 Urine Ketones 15 mg/dL (NEGATIVE) H 08/18/23 10:38 Urine Occult Blood LARGE (NEGATIVE) H 08/18/23 10:38 Urine Nitrite NEGATIVE (NEGATIVE) 08/18/23 10:38 Urine Bilirubin NEGATIVE (NEGATIVE) 08/18/23 10:38 Urine Urobilinogen 4 E.U./dL (NORMAL) H 08/18/23 10:38 Ur Leukocyte Esterase TRACE (NEGATIVE) H 08/18/23 10:38 Urine RBC 11-25 /HPF (0-5) H 08/18/23 10:38 Urine WBC 11-25 /HPF (0-3) H 08/18/23 10:38 Ur Squamous Epith Cells RARE Squamous (<= Few) 08/18/23 10:38 Amorphous Sediment Moderate /LPF 08/18/23 10:38 Urine Bacteria Moderate /HPF (None Seen) H 08/18/23 10:38 Ur Microscopic Review INDICATED 08/18/23 10:38 Urine Culture Comments INDICATED 08/18/23 10:38 SARS-CoV-2 (PCR) NOT DETECTED 08/18/23 22:05 - Procedures Procedures: Procedures CARPAL TUNNEL RELEASE (02/24/13) CATARAC PHACOEMULS/ASPIR (06/22/14) INSERT LENS AT CATAR EXT (06/22/14) INSPECTION OF LOWER INTESTINAL TRACT, ENDO (08/25/17) TOTAL KNEE REPLACEMENT (08/05/13) Sepsis Event Note (H) - Evaluation Current Stage of Sepsis: Ruled out
[2023-08-21] MEDS: metFORMIN 500 MG TABLET PO SCH (17:14)
[2023-08-21] MEDS: GABAPENTIN 300 MG CAPSULE PO SCH (22:08)
[2023-08-21] MEDS: ATORVASTATIN 40 MG TABLET PO SCH (22:08)
[2023-08-22] MEDS: SODIUM CHLORIDE FLUSH 0.9% 10 ML SYRINGE IVP SCH ×3 (00:16→17:23)
[2023-08-22 05:50] LABS: BASOPHILS % (AUTO) 0.6 %; EOSINOPHILS # (AUTO) 0.2 10^3/uL (0.0-0.7); HCT - HEMATOCRIT 34.9 % (42.0-52.0); LYMPHOCYTES # (AUTO) 0.7 10^3/uL (1.5-3.5); LYMPHOCYTES % (AUTO) 10.4 %; MEAN CORPUSCULAR HEMOGLOBIN 29.9 pg (27.0-31.0); MEAN CORPUSCULAR HGB CONC 34.4 g/dL (32.0-36.0); MEAN PLATELET VOLUME 9.9 fL (7.4-11.4); MONOCYTES # (AUTO) 0.9 10^3/uL (0.0-1.0); NEUTROPHILS # (AUTO) 4.4 10^3/uL (1.5-6.6); NEUTROPHILS % (AUTO) 69.6 %; PLT - PLATELET COUNT 256 10^3/uL (130-450); RED BLOOD COUNT 4.01 10^6/uL (4.70-6.10); RED CELL DISTRIBUTION WIDTH 12.1 % (12.0-15.0); WHITE BLOOD COUNT 6.3 x10^3/uL (4.8-10.8)
[2023-08-22] MEDS: CEFEPIME 1 GM in SODIUM CHLORIDE 0.9% MINIBAG 100 ML IV SCH ×3 (05:59→21:56)
[2023-08-22] MEDS: PANTOPRAZOLE 40 MG TABLET PO SCH (06:00)
[2023-08-22] MEDS: LEVOTHYROXINE 100 MCG TABLET PO SCH (06:00)
[2023-08-22 06:19] LABS: CALCIUM 8.7 mg/dL (8.5-10.3); CREATININE 0.7 mg/dL (0.6-1.3); POTASSIUM 3.4 mmol/L (3.5-4.5)
[2023-08-22] MEDS: INSULIN LISPRO 300 UNIT/3 ML PEN SUBQ SCH ×4 (09:05→21:50)
[2023-08-22] MEDS: CHOLECALCIFEROL 25 MCG TABLET PO SCH (09:06)
[2023-08-22] MEDS: metFORMIN 500 MG TABLET PO SCH ×2 (09:06→17:22)
[2023-08-22] MEDS: MULTIVITAMIN W/MINERALS TABLET PO SCH (09:06)
[2023-08-22] MEDS: FLUoxetine 10 MG CAPSULE PO SCH (09:06)
[2023-08-22] MEDS: ISOSORBIDE MONONITRATE ER 30 MG TABLET PO SCH (09:06)
[2023-08-22] MEDS: amLODIPine 5 MG TABLET PO SCH (09:06)
[2023-08-22] MEDS: polyethylene glycoL 3350 17 GM PACKET PO SCH (09:06)
[2023-08-22] MEDS: INSULIN GLARGINE-YFGN 300 UNIT/3 ML PEN SUBQ SCH (09:06)
[2023-08-22] MEDS: ASPIRIN EC 81 MG TABLET PO SCH (09:07)
[2023-08-22] MEDS: TAMSULOSIN 0.4 MG CAPSULE PO SCH (09:07)
[2023-08-22] MEDS: NYSTATIN 500000 UNITS/5 ML UDC PO SCH ×4 (09:07→21:50)
[2023-08-22] MEDS: METOPROLOL SUCCINATE 50 MG TABLET PO SCH (09:07)
--- NOTE | 2023-08-22 12:06 | PROVIDER PROGRESS NOTE ---
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 Urine culture is growing Enterobacter cloacae which is resistant to Cefazolin but sens to Cefepime, it was not tested to Ceftriaxone Plan: Cont the changed IV antibiotic, changed from Rocephin to Cefepime Await final blood cx results too. If that is neg, will change to po Levaquin and will plan a 2 week total antibx course for good prostate penetration (2) UTI (urinary tract infection) Assessment/Plan: Leukocytosis, elevated lactic acid, UA positive, Chronic Albert user Blood culture result pending but is neg to date. Urine culture is growing Ent erobacter cloacae Patient started on IV antibx, mental status has been improved after treatment started Plan: Continue with IV antibiotics changed to Cefepime Await final blood cx results too. If that is neg, will change to po Levaquin and will plan a 2 week total antibx course for good prostate penetration I updated the by phone today (3) Exposure to COVID-19 virus Assessment/Plan: As per Notes entered by our Infection human services program specialist, Lona Kim: Patient is SARs CO-V neg. who was with him until this am is positive. CDC states a person who has a high risk of exposure and is immunocompromised should wear source control for 10 days after the last exposure. Instead of source control, Aerosol precautions will be in place. He may be retested for COVID after 7 days of last exposure. If he remains COVID negative, and does not have symptoms, he may be released from precautions. If he becomes positive, he must remain in isolation for the 10 days since symptoms began or if no symptoms from the time of positive COVID test. If he becomes symptomatic, a COVID test may be performed the day after symptoms started. He is not coughing. I updated the by phone today (4) Newly diagnosed diabetes Assessment/Plan: Glu was 400 and Hyperglycemia persists w/ glu 200-300. No known history of diabetes His A1c was 6.5 in 2021. At this admission his A1c is 9.4 Plan: Cont insulin sliding scale and Semglee daily Start Metformin 500 BID Cont a DM diet He will need DM education I discussed all this with his today (5) General weakness Conclusion/Plan: Likely related to hyponatremia, UTI and deconditioning Per patient that patient has not been doing well after the CABG 5 years ago, gradually getting worse over the time. The said she has had to transfer him with her own strength for 2 years and he is mostly bedbound or in a wheelchair for the past 2 mos Plan: Will check orthostatics Cont to work with PT and OT I spoke to patient's Margie today. She would like him to go to a SNF for strengthening then wants him placed in [facility]. I told SW this today. (6) Chronic indwelling Albert Plan: Continue home dose Flomax Give oxycodone as needed (7) CAD He is s/p CABG Plan: Continue with isosorbide, aspirin, metoprolol and Lipitor (8) HTN Plan: Cont amlodipine, metoprolol w/ hold parameters (9) Depression Plan: Cont Prozac 20 mg daily as home dose (10) Hypothyroidism TSH good at 4.32 Plan: Continue Levthyroxine 100 mcg (11) DORIS on CPAP Plan: Continue home CPAP, brought in his machine (12) Hyponatremia Conclusion/Plan: Resolved Possibly from poor oral intake vs imbalanced fluid intake vs (most likely) pseudohyponatremia from hyperglycemia Plan: Cont gentle NS hydration, I will titrate NS down to off Follow BMP daily (13) Hypomagnesemia Conclusion/Plan: Resolved Magnesium was low, likely related to bowel obstruction versus imbalanced oral intake Plan: Follow-up magnesium level intermittently (14) Odynophagia Conclusion/Plan: Resolved Patient told his nurse that it hurts to swallow, liquids, warm, solid or cold Plan: Cont empiric Protonix ac and also empiric oral antifungal - Current Meds Current Meds: Current Medications Generic Name Dose Route Start Last Admin Trade Name Freq PRN Reason Stop Dose Admin Amlodipine Besylate 10 mg 08/19/23 15:28 08/22/23 09:06 Amlodipine 5 Mg Tablet PO 10 mg DAILY BRYCE Administration Aspirin 81 mg 08/19/23 09:00 08/22/23 09:07 Aspirin Ec 81 Mg Tablet PO 81 mg DAILY BRYCE Administration Atorvastatin Calcium 40 mg 08/18/23 21:00 08/21/23 22:08 Atorvastatin 40 Mg Tablet PO 40 mg QPM BRYCE Administration Cholecalciferol 50 mcg 08/20/23 17:00 08/22/23 09:06 Cholecalciferol 25 Mcg Tablet PO 50 mcg DAILY BRYCE Administration Fluoxetine HCl 20 mg 08/19/23 09:00 08/22/23 09:06 Fluoxetine 10 Mg Capsule PO 20 mg DAILY BRCYE Administration Gabapentin 300 mg 08/18/23 21:00 08/21/23 22:08 Gabapentin 300 Mg Capsule PO 300 mg HS BRYCE Administration Cefepime HCl 1 gm/ Sodium 100 mls @ 200 mls/hr 08/20/23 22:00 08/22/23 06:56 Chloride IV Infused TID BRYCE Infusion Insulin Glargine-yfgn 10 unit 08/20/23 09:00 08/22/23 09:06 Insulin Glargine-Yfgn 300 Unit/3 Ml Pen SUBQ 10 unit DAILY BRYCE Administration Insulin Human Lispro 1 - 9 unit 08/19/23 21:00 08/22/23 09:05 Insulin Lispro 300 Unit/3 Ml Pen SUBQ 1 unit 0800,1200,1700,2100 BRYCE Administration Protocol Isosorbide Mononitrate 60 mg 08/19/23 09:00 08/22/23 09:06 Isosorbide Mononitrate Er 30 Mg Tablet PO 60 mg DAILY BRYCE Administration Levothyroxine Sodium 100 mcg 08/19/23 07:00 08/22/23 06:00 Levothyroxine 100 Mcg Tablet PO 100 mcg QDAC BRYCE Administration Metformin HCl 500 mg 08/21/23 17:00 08/22/23 09:06 Metformin 500 Mg Tablet PO 500 mg BIDWM BRYCE Administration Metoprolol Succinate 50 mg 08/19/23 15:29 08/22/23 09:07 Metoprolol Succinate 50 Mg Tablet PO 50 mg DAILY BRYCE Administration Multivitamins/Minerals 1 tab 08/21/23 08:00 08/22/23 09:06 Multivitamin W/Minerals Tablet PO 1 tab DAILYWM BRYCE Administration Nystatin 5 ml 08/19/23 17:00 08/22/23 09:07 Nystatin 422553 Units/5 Ml Udc PO 5 ml QID BRYCE Administration Oxycodone HCl 5 mg 08/18/23 17:16 08/20/23 17:30 Oxycodone 5 Mg Tablet PO 5 mg Q4HR PRN Administration Moderate Pain (Level 4-6) Pantoprazole Sodium 40 mg 08/20/23 07:00 08/22/23 06:00 Pantoprazole 40 Mg Tablet PO 40 mg QDAC BRYCE Administration Polyethylene Glycol 17 gm 08/22/23 09:00 08/22/23 09:06 Polyethylene Glycol 3350 17 Gm Packet PO 17 gm DAILY BRYCE Administration Sodium Chloride 10 ml 08/18/23 17:00 08/22/23 09:07 Sodium Chloride Flush 0.9% 10 Ml Syringe IVP 10 ml 0100,0900,1700 BRYCE Administration Tamsulosin HCl 0.4 mg 08/19/23 09:00 08/22/23 09:07 Tamsulosin 0.4 Mg Capsule PO 0.4 mg DAILY BRYCE Administration - Lab Result Fish Bone Diagrams: 08/22/23 05:45 08/22/23 05:45 - Additional Planning My Orders: My Active Orders 08/21/23 17:00 metFORMIN [Glucophage] 500 mg PO BIDWM 08/21/23 23:32 Home CPAP/BiPAP/NPPV [RC] .ONCE 08/22/23 09:00 polyethylene glycoL 3350 [Miralax] 17 gm PO DAILY Subjective - Subjective Patient Reports: Resting Comfortably, No Complaints (except that he has not tried to stand up yet) Objective Vital Signs: Vital Signs - 24 hr 08/21/23 08/22/23 08/22/23 16:00 00:21 08:00 Temperature 37.1 C 37.2 C 36.6 C Heart Rate [ 99 95 80 Brachial] Respiratory 20 16 20 Rate Blood Pressure 146/73 H 139/73 H 133/65 H [Left Brachial artery] O2 Saturation 99 95 94 08/22/23 09:05 Temperature Heart Rate [ Brachial] Respiratory Rate Blood Pressure [Left Brachial artery] O2 Saturation 94 Oxygen O2 Source Room air I&O (Last 24 Hrs): Intake and Output Totals x24h 08/20/23 08/21/23 08/22/23 23:59 23:59 23:59 Intake Total 6653.931 9435.000 220 Output Total 865 1500 1525 Balance 9898.943 0181.000 -1305 General: Alert, Oriented x3, No acute distress HEENT: EOMI, Mucous membr. moist/pink Neck: Supple, No JVD Neuro: Alert, Non Focal Cardiovascular: Regular rate, No murmurs Respiratory: No respiratory distress, Breath sounds nml Abdomen: Normal bowel sounds, Soft, Other (Obese) Genitourinary: Other (Albert in place) Extremities: No clubbing, No edema, No tenderness/swelling - Results Results: Laboratory Results WBC 6.3 x10^3/uL (4.8-10.8) 08/22/23 05:45 RBC 4.01 10^6/uL (4.70-6.10) L 08/22/23 05:45 Hgb 12.0 g/dL (14.0-18.0) L 08/22/23 05:45 Hct 34.9 % (42.0-52.0) L 08/22/23 05:45 MCV 87.0 fL (80.0-94.0) 08/22/23 05:45 MCH 29.9 pg (27.0-31.0) 08/22/23 05:45 MCHC 34.4 g/dL (32.0-36.0) 08/22/23 05:45 RDW 12.1 % (12.0-15.0) 08/22/23 05:45 Plt Count 256 10^3/uL (130-450) 08/22/23 05:45 MPV 9.9 fL (7.4-11.4) 08/22/23 05:45 Neut # (Auto) 4.4 10^3/uL (1.5-6.6) 08/22/23 05:45 Lymph # (Auto) 0.7 10^3/uL (1.5-3.5) L 08/22/23 05:45 [place] # (Auto) 0.9 10^3/uL (0.0-1.0) 08/22/23 05:45 Eos # (Auto) 0.2 10^3/uL (0.0-0.7) 08/22/23 05:45 Baso # (Auto) 0.0 10^3/uL (0.0-0.1) 08/22/23 05:45 Absolute Nucleated RBC 0.00 x10^3/uL 08/22/23 05:45 Nucleated RBC % 0.0 /100WBC 08/22/23 05:45 Sodium 136 mmol/L (135-145) 08/22/23 05:45 Potassium 3.4 mmol/L (3.5-4.5) L 08/22/23 05:45 Chloride 102 mmol/L (101-111) 08/22/23 05:45 Carbon Dioxide 28 mmol/L (21-32) 08/22/23 05:45 Anion Gap 6.0 (6-13) 08/22/23 05:45 BUN 7 mg/dL (6-20) 08/22/23 05:45 Creatinine 0.7 mg/dL (0.6-1.3) 08/22/23 05:45 Estimated GFR (MDRD) 108 (>89) 08/22/23 05:45 Glucose 186 mg/dL (74-104) H 08/22/23 05:45 POC Whole Bld Glucose 184 mg/dL (70 - 100) H 08/22/23 12:03 Estimat Average Glucose 223 mg/dL (70-100) H 08/19/23 05:30 Hemoglobin A1c % 9.4 % (4.27-6.07) H 08/19/23 05:30 Lactic Acid 2.4 mmol/L (0.5-2.2) H 08/18/23 16:47 Calcium 8.7 mg/dL (8.5-10.3) 08/22/23 05:45 Magnesium 2.0 mg/dL (1.7-2.3) 08/18/23 16:47 Total Bilirubin 1.1 mg/dL (0.2-1.0) H 08/18/23 16:47 AST 12 IU/L (10-42) 08/18/23 16:47 ALT 16 IU/L (10-60) 08/18/23 16:47 Alkaline Phosphatase 79 IU/L (42-121) 08/18/23 16:47 B-Natriuretic Peptide 77 pg/mL (5-100) 08/19/23 05:30 Total Protein 6.9 g/dL (6.4-8.9) 08/18/23 16:47 Albumin 4.0 g/dL (3.2-5.5) 08/18/23 16:47 Globulin 2.9 g/dL (2.1-4.2) 08/18/23 16:47 Albumin/Globulin Ratio 1.4 (1.0-2.2) 08/18/23 16:47 Lipase < 10 U/L (11-82) L 08/18/23 11:22 Vitamin B12 450 pg/mL (180-914) 08/22/23 05:45 TSH 4.32 uIU/mL (0.34-5.60) 08/20/23 05:26 Urine Color DARK YELLOW 08/18/23 10:38 Urine Clarity CLOUDY (CLEAR) 08/18/23 10:38 Urine pH 6.0 PH (5.0-7.5) 08/18/23 10:38 Ur Specific [place] >=1.030 (1.002-1.030) H 08/18/23 10:38 Urine Protein 100 mg/dL (NEGATIVE) H 08/18/23 10:38 Urine Glucose (UA) 500 mg/dL (NEGATIVE) H 08/18/23 10:38 Urine Ketones 15 mg/dL (NEGATIVE) H 08/18/23 10:38 Urine Occult Blood LARGE (NEGATIVE) H 08/18/23 10:38 Urine Nitrite NEGATIVE (NEGATIVE) 08/18/23 10:38 Urine Bilirubin NEGATIVE (NEGATIVE) 08/18/23 10:38 Urine Urobilinogen 4 E.U./dL (NORMAL) H 08/18/23 10:38 Ur Leukocyte Esterase TRACE (NEGATIVE) H 08/18/23 10:38 Urine RBC 11-25 /HPF (0-5) H 08/18/23 10:38 Urine WBC 11-25 /HPF (0-3) H 08/18/23 10:38 Ur Squamous Epith Cells RARE Squamous (<= Few) 08/18/23 10:38 Amorphous Sediment Moderate /LPF 08/18/23 10:38 Urine Bacteria Moderate /HPF (None Seen) H 08/18/23 10:38 Ur Microscopic Review INDICATED 08/18/23 10:38 Urine Culture Comments INDICATED 08/18/23 10:38 SARS-CoV-2 (PCR) NOT DETECTED 08/18/23 22:05 - Procedures Procedures: Procedures CARPAL TUNNEL RELEASE (02/24/13) CATARAC PHACOEMULS/ASPIR (06/22/14) INSERT LENS AT CATAR EXT (06/22/14) INSPECTION OF LOWER INTESTINAL TRACT, ENDO (08/25/17) TOTAL KNEE REPLACEMENT (08/05/13) Sepsis Event Note (H) - Evaluation Current Stage of Sepsis: Ruled out
[2023-08-22] MEDS: ATORVASTATIN 40 MG TABLET PO SCH (21:50)
[2023-08-22] MEDS: GABAPENTIN 300 MG CAPSULE PO SCH (21:50)
[2023-08-23] MEDS: SODIUM CHLORIDE FLUSH 0.9% 10 ML SYRINGE IVP SCH ×3 (00:23→20:31)
[2023-08-23] MEDS: CEFEPIME 1 GM in SODIUM CHLORIDE 0.9% MINIBAG 100 ML IV SCH ×3 (05:49→22:09)
[2023-08-23] MEDS: LEVOTHYROXINE 100 MCG TABLET PO SCH (05:50)
[2023-08-23] MEDS: PANTOPRAZOLE 40 MG TABLET PO SCH (05:50)
[2023-08-23 05:56] LABS: BASOPHILS % (AUTO) 0.3 %; EOSINOPHILS # (AUTO) 0.4 10^3/uL (0.0-0.7); EOSINOPHILS % (AUTO) 5.1 %; HGB - HEMOGLOBIN 11.8 g/dL (14.0-18.0); LYMPHOCYTES # (AUTO) 0.8 10^3/uL (1.5-3.5); LYMPHOCYTES % (AUTO) 10.7 %; MEAN CORPUSCULAR HEMOGLOBIN 29.6 pg (27.0-31.0); MEAN CORPUSCULAR HGB CONC 33.7 g/dL (32.0-36.0); MEAN CORPUSCULAR VOLUME 87.9 fL (80.0-94.0); MEAN PLATELET VOLUME 9.9 fL (7.4-11.4); MONOCYTES # (AUTO) 0.6 10^3/uL (0.0-1.0); MONOCYTES % (AUTO) 8.6 %; NEUTROPHILS # (AUTO) 5.3 10^3/uL (1.5-6.6); NEUTROPHILS % (AUTO) 73.6 %; PLT - PLATELET COUNT 258 10^3/uL (130-450); RED BLOOD COUNT 3.98 10^6/uL (4.70-6.10); RED CELL DISTRIBUTION WIDTH 12.5 % (12.0-15.0); WHITE BLOOD COUNT 7.2 x10^3/uL (4.8-10.8)
[2023-08-23 06:16] LABS: CALCIUM 8.6 mg/dL (8.5-10.3); CREATININE 0.7 mg/dL (0.6-1.3); MAGNESIUM 1.8 mg/dL (1.7-2.3); POTASSIUM 3.6 mmol/L (3.5-4.5)
[2023-08-23] MEDS: polyethylene glycoL 3350 17 GM PACKET PO SCH (09:24)
[2023-08-23] MEDS: metFORMIN 500 MG TABLET PO SCH ×2 (09:24→17:12)
[2023-08-23] MEDS: FLUoxetine 10 MG CAPSULE PO SCH (09:24)
[2023-08-23] MEDS: MULTIVITAMIN W/MINERALS TABLET PO SCH (09:24)
[2023-08-23] MEDS: CHOLECALCIFEROL 25 MCG TABLET PO SCH (09:25)
[2023-08-23] MEDS: ASPIRIN EC 81 MG TABLET PO SCH (09:25)
[2023-08-23] MEDS: ISOSORBIDE MONONITRATE ER 30 MG TABLET PO SCH (09:25)
[2023-08-23] MEDS: TAMSULOSIN 0.4 MG CAPSULE PO SCH (09:25)
[2023-08-23] MEDS: amLODIPine 5 MG TABLET PO SCH (09:25)
[2023-08-23] MEDS: METOPROLOL SUCCINATE 50 MG TABLET PO SCH (09:25)
[2023-08-23] MEDS: NYSTATIN 500000 UNITS/5 ML UDC PO SCH ×4 (09:27→20:33)
[2023-08-23] MEDS: INSULIN GLARGINE-YFGN 300 UNIT/3 ML PEN SUBQ SCH (09:27)
[2023-08-23] MEDS: INSULIN LISPRO 300 UNIT/3 ML PEN SUBQ SCH ×4 (09:28→20:34)
--- NOTE | 2023-08-23 15:26 | PROVIDER PROGRESS NOTE ---
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 Urine culture is growing Enterobacter cloacae which is resistant to Cefazolin but sens to Cefepime, it was not tested to Ceftriaxone Plan: Cont the changed IV antibiotic, changed from Rocephin to Cefepime Await final blood cx results too. If that is neg, will change to po Levaquin and will plan a 2 week total antibx course for good prostate penetration Anticipate discharge soon (2) UTI (urinary tract infection) Assessment/Plan: Leukocytosis, elevated lactic acid, UA positive, Chronic Albert user Blood culture result pending but is neg to date. Urine culture is growing Enterobacter cloacae Patient started on IV antibx, mental status has been improved after treatment started Plan: Continue with IV antibiotics changed to Cefepime Await final blood cx results too. If that is neg, will change to po Levaquin and will plan a 2 week total antibx course for good prostate penetration (3) Exposure to COVID-19 virus Assessment/Plan: As per Notes entered by our Infection shorer, Lona Kim: Patient is SARs CO-V neg. who was with him until this am is positive. CDC states a person who has a high risk of exposure and is immunocompromised should wear source control for 10 days after the last exposure. Instead of source control, Aerosol precautions will be in place. He may be retested for COVID after 7 days of last exposure. If he remains COVID negative, and does not have symptoms, he may be released from precautions. If he becomes positive, he must remain in isolation for the 10 days since symptoms began or if no symptoms from the time of positive COVID test. If he becomes symptomatic, a COVID test may be performed the day after symptoms started. He is not coughing. (4) Newly diagnosed diabetes Assessment/Plan: Glu was 400 and Hyperglycemia persists w/ glu 200-300. No known history of diabetes His A1c was 6.5 in 2021. At this admission his A1c is 9.4 Plan: Cont insulin sliding scale and Semglee daily Start Metformin 500 BID Cont a DM diet He will need DM education (5) General weakness Conclusion/Plan: Likely related to hyponatremia, UTI and deconditioning Per patient that patient has not been doing well after the CABG 5 years ago, gradually getting worse over the time. The said she has had to transfer him with her own strength for 2 years and he is mostly bedbound or in a wheelchair for the past 2 mos Plan: Will check orthostatics Cont to work with PT and OT I spoke to patient's Margie yesterday 08/22. She would like him to go to a SNF for strengthening then wants him placed in [facility]. I told SW. (6) Chronic indwelling Albert Plan: Continue home dose Flomax Give oxycodone as needed (7) CAD He is s/p CABG Plan: Continue with isosorbide, aspirin, metoprolol and Lipitor (8) HTN Plan: Cont amlodipine, metoprolol w/ hold parameters (9) Depression Plan: Cont Prozac 20 mg daily as home dose (10) Hypothyroidism TSH good at 4.32 Plan: Continue Levthyroxine 100 mcg (11) DORIS on CPAP Plan: Continue home CPAP, brought in his machine (12) Hyponatremia Conclusion/Plan: Resolved Possibly from poor oral intake vs imbalanced fluid intake vs (most likely) pseudohyponatremia from hyperglycemia Plan: Cont gentle NS hydration, I will titrate NS down to off Follow BMP daily (13) Hypomagnesemia Conclusion/Plan: Resolved Magnesium was low, likely related to bowel obstruction versus imbalanced oral intake Plan: Follow-up magnesium level intermittently (14) Odynophagia Conclusion/Plan: Resolved Patient told his nurse that it hurts to swallow, liquids, warm, solid or cold Plan: Cont empiric Protonix ac and also empiric oral antifungal - Current Meds Current Meds: Current Medications Generic Name Dose Route Start Last Admin Trade Name Dhruvq PRN Reason Stop Dose Admin Amlodipine Besylate 10 mg 08/19/23 15:28 08/23/23 09:25 Amlodipine 5 Mg Tablet PO 10 mg DAILY BRYCE Administration Aspirin 81 mg 08/19/23 09:00 08/23/23 09:25 Aspirin Ec 81 Mg Tablet PO 81 mg DAILY BRYCE Administration Atorvastatin Calcium 40 mg 08/18/23 21:00 08/22/23 21:50 Atorvastatin 40 Mg Tablet PO 40 mg QPM BRYCE Administration Cholecalciferol 50 mcg 08/20/23 17:00 08/23/23 09:25 Cholecalciferol 25 Mcg Tablet PO 50 mcg DAILY BRYCE Administration Fluoxetine HCl 20 mg 08/19/23 09:00 08/23/23 09:24 Fluoxetine 10 Mg Capsule PO 20 mg DAILY BRYCE Administration Gabapentin 300 mg 08/18/23 21:00 08/22/23 21:50 Gabapentin 300 Mg Capsule PO 300 mg HS BRCYE Administration Cefepime HCl 1 gm/ Sodium 100 mls @ 200 mls/hr 08/20/23 22:00 08/23/23 14:50 Chloride IV Infused TID BRYCE Infusion Insulin Glargine-yfgn 10 unit 08/20/23 09:00 08/23/23 09:27 Insulin Glargine-Yfgn 300 Unit/3 Ml Pen SUBQ 10 unit DAILY BRYCE Administration Insulin Human Lispro 1 - 9 unit 08/19/23 21:00 08/23/23 12:19 Insulin Lispro 300 Unit/3 Ml Pen SUBQ 1 unit 0800,1200,1700,2100 BRYCE Administration Protocol Isosorbide Mononitrate 60 mg 08/19/23 09:00 08/23/23 09:25 Isosorbide Mononitrate Er 30 Mg Tablet PO 60 mg DAILY BRYCE Administration Levothyroxine Sodium 100 mcg 08/19/23 07:00 08/23/23 05:50 Levothyroxine 100 Mcg Tablet PO 100 mcg QDAC BRYCE Administration Metformin HCl 500 mg 08/21/23 17:00 08/23/23 09:24 Metformin 500 Mg Tablet PO 500 mg BIDWM BRYCE Administration Metoprolol Succinate 50 mg 08/19/23 15:29 08/23/23 09:25 Metoprolol Succinate 50 Mg Tablet PO 50 mg DAILY BRYCE Administration Multivitamins/Minerals 1 tab 08/21/23 08:00 08/23/23 09:24 Multivitamin W/Minerals Tablet PO 1 tab DAILYWM BRYCE Administration Nystatin 5 ml 08/19/23 17:00 08/23/23 14:18 Nystatin 169269 Units/5 Ml Udc PO 5 ml QID BRYCE Administration Oxycodone HCl 5 mg 08/18/23 17:16 08/20/23 17:30 Oxycodone 5 Mg Tablet PO 5 mg Q4HR PRN Administration Moderate Pain (Level 4-6) Pantoprazole Sodium 40 mg 08/20/23 07:00 08/23/23 05:50 Pantoprazole 40 Mg Tablet PO 40 mg QDAC BRYCE Administration Polyethylene Glycol 17 gm 08/22/23 09:00 08/23/23 09:24 Polyethylene Glycol 3350 17 Gm Packet PO 17 gm DAILY BRYCE Administration Sodium Chloride 10 ml 08/18/23 13:53 08/22/23 21:58 Sodium Chloride Flush 0.9% 10 Ml Syringe IVP 10 ml PRN PRN Administration NEEDED PER PROVIDER ORDERS Sodium Chloride 10 ml 08/18/23 17:00 08/23/23 09:29 Sodium Chloride Flush 0.9% 10 Ml Syringe IVP 10 ml 0100,0900,1700 BRYCE Administration Tamsulosin HCl 0.4 mg 08/19/23 09:00 08/23/23 09:25 Tamsulosin 0.4 Mg Capsule PO 0.4 mg DAILY BRYCE Administration - Lab Result Fish Bone Diagrams: 08/23/23 05:43 08/23/23 05:43 Subjective - Subjective Patient Reports: Resting Comfortably, No Complaints Objective Vital Signs: Vital Signs - 24 hr 08/22/23 08/23/23 16:00 00:17 Temperature 36.7 C 36.7 C Heart Rate [ 92 78 Brachial] Respiratory 18 18 Rate Blood Pressure 126/69 [Left Brachial artery] Blood Pressure 120/59 L [Right Brachial artery] O2 Saturation 96 96 Oxygen O2 Source CPAP I&O (Last 24 Hrs): Intake and Output Totals x24h 08/21/23 08/22/23 08/23/23 23:59 23:59 23:59 Intake Total 3610.000 620 660 Output Total 1500 2475 825 Balance 2110.000 -1855 -165 General: Alert, No acute distress HEENT: Mucous membr. moist/pink Neck: Supple Neuro: Alert, Non Focal Cardiovascular: Regular rate Respiratory: No respiratory distress Abdomen: Soft, Other (Obese) Extremities: No clubbing, No edema, No tenderness/swelling - Results Results: Laboratory Results WBC 7.2 x10^3/uL (4.8-10.8) 08/23/23 05:43 RBC 3.98 10^6/uL (4.70-6.10) L 08/23/23 05:43 Hgb 11.8 g/dL (14.0-18.0) L 08/23/23 05:43 Hct 35.0 % (42.0-52.0) L 08/23/23 05:43 MCV 87.9 fL (80.0-94.0) 08/23/23 05:43 MCH 29.6 pg (27.0-31.0) 08/23/23 05:43 MCHC 33.7 g/dL (32.0-36.0) 08/23/23 05:43 RDW 12.5 % (12.0-15.0) 08/23/23 05:43 Plt Count 258 10^3/uL (130-450) 08/23/23 05:43 MPV 9.9 fL (7.4-11.4) 08/23/23 05:43 Neut # (Auto) 5.3 10^3/uL (1.5-6.6) 08/23/23 05:43 Lymph # (Auto) 0.8 10^3/uL (1.5-3.5) L 08/23/23 05:43 [place] # (Auto) 0.6 10^3/uL (0.0-1.0) 08/23/23 05:43 Eos # (Auto) 0.4 10^3/uL (0.0-0.7) 08/23/23 05:43 Baso # (Auto) 0.0 10^3/uL (0.0-0.1) 08/23/23 05:43 Absolute Nucleated RBC 0.00 x10^3/uL 08/23/23 05:43 Nucleated RBC % 0.0 /100WBC 08/23/23 05:43 Sodium 137 mmol/L (135-145) 08/23/23 05:43 Potassium 3.6 mmol/L (3.5-4.5) 08/23/23 05:43 Chloride 102 mmol/L (101-111) 08/23/23 05:43 Carbon Dioxide 28 mmol/L (21-32) 08/23/23 05:43 Anion Gap 7.0 (6-13) 08/23/23 05:43 BUN 11 mg/dL (6-20) 08/23/23 05:43 Creatinine 0.7 mg/dL (0.6-1.3) 08/23/23 05:43 Estimated GFR (MDRD) 108 (>89) 08/23/23 05:43 Glucose 157 mg/dL (74-104) H 08/23/23 05:43 POC Whole Bld Glucose 163 mg/dL (70 - 100) H 08/23/23 11:33 Estimat Average Glucose 223 mg/dL (70-100) H 08/19/23 05:30 Hemoglobin A1c % 9.4 % (4.27-6.07) H 08/19/23 05:30 Lactic Acid 2.4 mmol/L (0.5-2.2) H 08/18/23 16:47 Calcium 8.6 mg/dL (8.5-10.3) 08/23/23 05:43 Magnesium 1.8 mg/dL (1.7-2.3) 08/23/23 05:43 Total Bilirubin 1.1 mg/dL (0.2-1.0) H 08/18/23 16:47 AST 12 IU/L (10-42) 08/18/23 16:47 ALT 16 IU/L (10-60) 08/18/23 16:47 Alkaline Phosphatase 79 IU/L (42-121) 08/18/23 16:47 B-Natriuretic Peptide 77 pg/mL (5-100) 08/19/23 05:30 Total Protein 6.9 g/dL (6.4-8.9) 08/18/23 16:47 Albumin 4.0 g/dL (3.2-5.5) 08/18/23 16:47 Globulin 2.9 g/dL (2.1-4.2) 08/18/23 16:47 Albumin/Globulin Ratio 1.4 (1.0-2.2) 08/18/23 16:47 Lipase < 10 U/L (11-82) L 08/18/23 11:22 Vitamin B12 450 pg/mL (180-914) 08/22/23 05:45 TSH 4.32 uIU/mL (0.34-5.60) 08/20/23 05:26 Urine Color DARK YELLOW 08/18/23 10:38 Urine Clarity CLOUDY (CLEAR) 08/18/23 10:38 Urine pH 6.0 PH (5.0-7.5) 08/18/23 10:38 Ur Specific [place] >=1.030 (1.002-1.030) H 08/18/23 10:38 Urine Protein 100 mg/dL (NEGATIVE) H 08/18/23 10:38 Urine Glucose (UA) 500 mg/dL (NEGATIVE) H 08/18/23 10:38 Urine Ketones 15 mg/dL (NEGATIVE) H 08/18/23 10:38 Urine Occult Blood LARGE (NEGATIVE) H 08/18/23 10:38 Urine Nitrite NEGATIVE (NEGATIVE) 08/18/23 10:38 Urine Bilirubin NEGATIVE (NEGATIVE) 08/18/23 10:38 Urine Urobilinogen 4 E.U./dL (NORMAL) H 08/18/23 10:38 Ur Leukocyte Esterase TRACE (NEGATIVE) H 08/18/23 10:38 Urine RBC 11-25 /HPF (0-5) H 08/18/23 10:38 Urine WBC 11-25 /HPF (0-3) H 08/18/23 10:38 Ur Squamous Epith Cells RARE Squamous (<= Few) 08/18/23 10:38 Amorphous Sediment Moderate /LPF 08/18/23 10:38 Urine Bacteria Moderate /HPF (None Seen) H 08/18/23 10:38 Ur Microscopic Review INDICATED 08/18/23 10:38 Urine Culture Comments INDICATED 08/18/23 10:38 SARS-CoV-2 (PCR) NOT DETECTED 08/18/23 22:05 - Procedures Procedures: Procedures CARPAL TUNNEL RELEASE (02/24/13) CATARAC PHACOEMULS/ASPIR (06/22/14) INSERT LENS AT CATAR EXT (06/22/14) INSPECTION OF LOWER INTESTINAL TRACT, ENDO (08/25/17) TOTAL KNEE REPLACEMENT (08/05/13) Sepsis Event Note (H) - Evaluation Current Stage of Sepsis: Ruled out
[2023-08-23] MEDS: GABAPENTIN 300 MG CAPSULE PO SCH (20:33)
[2023-08-23] MEDS: ATORVASTATIN 40 MG TABLET PO SCH (20:33)
[2023-08-24] MEDS: SODIUM CHLORIDE FLUSH 0.9% 10 ML SYRINGE IVP SCH ×4 (00:50→23:58)
[2023-08-24] MEDS ORDERED: CARBOXYMETHYLCELLULOSE OPHTH DROPS EACHEYE PRN (00:53)
[2023-08-24] MEDS: CEFEPIME 1 GM in SODIUM CHLORIDE 0.9% MINIBAG 100 ML IV SCH (06:28)
[2023-08-24] MEDS: LEVOTHYROXINE 100 MCG TABLET PO SCH (06:28)
[2023-08-24] MEDS: PANTOPRAZOLE 40 MG TABLET PO SCH (06:29)
[2023-08-24] MEDS: ISOSORBIDE MONONITRATE ER 30 MG TABLET PO SCH (08:55)
[2023-08-24] MEDS: MULTIVITAMIN W/MINERALS TABLET PO SCH (08:55)
[2023-08-24] MEDS: ASPIRIN EC 81 MG TABLET PO SCH (08:55)
[2023-08-24] MEDS: FLUoxetine 10 MG CAPSULE PO SCH (08:55)
[2023-08-24] MEDS: polyethylene glycoL 3350 17 GM PACKET PO SCH (08:55)
[2023-08-24] MEDS: METOPROLOL SUCCINATE 50 MG TABLET PO SCH (08:56)
[2023-08-24] MEDS: amLODIPine 5 MG TABLET PO SCH (08:56)
[2023-08-24] MEDS: CHOLECALCIFEROL 25 MCG TABLET PO SCH (08:56)
[2023-08-24] MEDS: metFORMIN 500 MG TABLET PO SCH ×2 (08:56→17:50)
[2023-08-24] MEDS: INSULIN GLARGINE-YFGN 300 UNIT/3 ML PEN SUBQ SCH (08:56)
[2023-08-24] MEDS: INSULIN LISPRO 300 UNIT/3 ML PEN SUBQ SCH ×4 (08:57→21:15)
[2023-08-24] MEDS: TAMSULOSIN 0.4 MG CAPSULE PO SCH (08:58)
[2023-08-24] MEDS: NYSTATIN 500000 UNITS/5 ML UDC PO SCH ×4 (08:59→21:16)
--- NOTE | 2023-08-24 11:04 | PROVIDER PROGRESS NOTE ---
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 Urine culture is growing Enterobacter cloacae which is resistant to Cefazolin but sens to Cefepime, it was not tested to Ceftriaxone Plan: Will stop Cefepime and change to po Levaquin and will plan a 2 week total antibx course for good prostate penetration Anticipate discharge soon (2) UTI (urinary tract infection) Assessment/Plan: Leukocytosis, elevated lactic acid, UA positive, Chronic Albert user Blood culture is neg. Urine culture is growing Enterobacter cloacae Patient started on IV antibx, mental status improved after treatment started Plan: Will stop Cefepime and change to po Levaquin plus a probiotic and will plan a 2 week total antibx course for good prostate penetration (3) Exposure to COVID-19 virus Assessment/Plan: As per Notes entered by our Infection farmworker fryer farm, Lona Kim: Patient is SARs CO-V neg. who was with him until this am is positive. CDC states a person who has a high risk of exposure and is immunocompromised should wear source control for 10 days after the last exposure. Instead of source control, Aerosol precautions will be in place. He may be retested for COVID after 7 days of last exposure. If he remains COVID negative, and does not have symptoms, he may be released from precautions. If he becomes positive, he must remain in isolation for the 10 days since symptoms began or if no symptoms from the time of positive COVID test. If he becomes symptomatic, a COVID test may be performed the day after symptoms started. He is not coughing. Plan: On day of discharge, the SNF wants a COVID test done Anticipate discharge soon (4) Newly diagnosed diabetes Assessment/Plan: Glu was 400 and Hyperglycemia persists w/ glu 200-300. No known history of diabetes His A1c was 6.5 in 2021. At this admission his A1c is 9.4 Plan: Cont Metformin and will increase from 500 BID to 1000 BID Cont insulin sliding scale and Semglee daily. With the higher Metformin, the Insulin needs may be able to be decreased Cont a DM diet Cont fingerstick glu checks and ss Ins coverage He will need DM education (5) General weakness Conclusion/Plan: Likely related to hyponatremia, UTI and deconditioning Per patient that patient has not been doing well after the CABG 5 years ago, gradually getting worse over the time. The said she has had to transfer him with her own strength for 2 years and he is mostly bedbound or in a wheelchair for the past 2 mos His orthostatic VS were normal, so order was stopped. Plan: Cont to work with PT and OT I spoke to patient's Margie on 08/22. She would like him to go to a SNF for strengthening then wants him placed in [facility]. I told SW. (6) Chronic indwelling Albert Plan: Continue home dose Flomax Give oxycodone as needed (7) CAD He is s/p CABG Plan: Continue with isosorbide, aspirin, metoprolol and Lipitor (8) HTN Plan: Cont amlodipine, metoprolol w/ hold parameters (9) Depression Plan: Cont Prozac 20 mg daily as home dose (10) Hypothyroidism TSH good at 4.32 Plan: Continue Levthyroxine 100 mcg (11) DORIS on CPAP Plan: Continue home CPAP, brought in his machine (12) Hyponatremia Conclusion/Plan: Resolved Possibly from poor oral intake vs imbalanced fluid intake vs (most likely) pseudohyponatremia from hyperglycemia Plan: Follow BMP intermittently (13) Hypomagnesemia Conclusion/Plan: Resolved Magnesium was low, likely related to bowel obstruction versus imbalanced oral intake Plan: Follow-up magnesium level intermittently (14) Odynophagia Conclusion/Plan: Pain has resolved Patient told his nurse that it hurts to swallow, liquids, warm, solid or cold Plan: I will decrease the Protonix to prn and finish the oral Nystatin - Current Meds Current Meds: Current Medications Generic Name Dose Route Start Last Admin Trade Name Freq PRN Reason Stop Dose Admin Amlodipine Besylate 10 mg 08/19/23 15:28 08/24/23 08:56 Amlodipine 5 Mg Tablet PO 10 mg DAILY BRYCE Administration Aspirin 81 mg 08/19/23 09:00 08/24/23 08:55 Aspirin Ec 81 Mg Tablet PO 81 mg DAILY BRYCE Administration Atorvastatin Calcium 40 mg 08/18/23 21:00 08/23/23 20:33 Atorvastatin 40 Mg Tablet PO 40 mg QPM BRYCE Administration Cholecalciferol 50 mcg 08/20/23 17:00 08/24/23 08:56 Cholecalciferol 25 Mcg Tablet PO 50 mcg DAILY BRYCE Administration Fluoxetine HCl 20 mg 08/19/23 09:00 08/24/23 08:55 Fluoxetine 10 Mg Capsule PO 20 mg DAILY BRYCE Administration Gabapentin 300 mg 08/18/23 21:00 08/23/23 20:33 Gabapentin 300 Mg Capsule PO 300 mg HS BRYCE Administration Insulin Glargine-yfgn 10 unit 08/20/23 09:00 08/24/23 08:56 Insulin Glargine-Yfgn 300 Unit/3 Ml Pen SUBQ 10 unit DAILY BRYCE Administration Insulin Human Lispro 1 - 9 unit 08/19/23 21:00 08/24/23 08:57 Insulin Lispro 300 Unit/3 Ml Pen SUBQ 1 unit 0800,1200,1700,2100 BRYCE Administration Protocol Isosorbide Mononitrate 60 mg 08/19/23 09:00 08/24/23 08:55 Isosorbide Mononitrate Er 30 Mg Tablet PO 60 mg DAILY BRYCE Administration Levothyroxine Sodium 100 mcg 08/19/23 07:00 08/24/23 06:28 Levothyroxine 100 Mcg Tablet PO 100 mcg QDAC [facility] Administration Metformin HCl 500 mg 08/21/23 17:00 08/24/23 08:56 Metformin 500 Mg Tablet PO 500 mg BIDWM BRYCE Administration Metoprolol Succinate 50 mg 08/19/23 15:29 08/24/23 08:56 Metoprolol Succinate 50 Mg Tablet PO 50 mg DAILY BRYCE Administration Multivitamins/Minerals 1 tab 08/21/23 08:00 08/24/23 08:55 Multivitamin W/Minerals Tablet PO 1 tab DAILYWM BRYCE Administration Nystatin 5 ml 08/19/23 17:00 08/24/23 08:59 Nystatin 106264 Units/5 Ml Udc PO Not Given QID [facility] Oxycodone HCl 5 mg 08/18/23 17:16 08/20/23 17:30 Oxycodone 5 Mg Tablet PO 5 mg Q4HR PRN Administration Moderate Pain (Level 4-6) Pantoprazole Sodium 40 mg 08/20/23 07:00 08/24/23 06:29 Pantoprazole 40 Mg Tablet PO 40 mg QDAC BRYCE Administration Polyethylene Glycol 17 gm 08/22/23 09:00 08/24/23 08:55 Polyethylene Glycol 3350 17 Gm Packet PO 17 gm DAILY BRYCE Administration Sodium Chloride 10 ml 08/18/23 13:53 08/22/23 21:58 Sodium Chloride Flush 0.9% 10 Ml Syringe IVP 10 ml PRN PRN Administration NEEDED PER PROVIDER ORDERS Sodium Chloride 10 ml 08/18/23 17:00 08/24/23 08:55 Sodium Chloride Flush 0.9% 10 Ml Syringe IVP 10 ml 0100,0900,1700 BRYCE Administration Tamsulosin HCl 0.4 mg 08/19/23 09:00 08/24/23 08:58 Tamsulosin 0.4 Mg Capsule PO 0.4 mg DAILY BRYCE Administration - Lab Result Fish Bone Diagrams: 08/23/23 05:43 08/23/23 05:43 - Additional Planning My Orders: My Active Orders 08/24/23 10:00 Lactobacillus Rhamnosus GG [Culturelle] 1 cap PO DAILY levoFLOXacin [Levaquin] 750 mg PO DAILY Subjective - Subjective Patient Reports: Resting Comfortably, No Complaints Objective Vital Signs: Vital Signs - 24 hr 08/23/23 08/23/23 08/24/23 16:00 23:53 08:00 Temperature 36.6 C 36.6 C 36.5 C Heart Rate [ 85 83 84 Brachial] Respiratory 16 18 18 Rate Blood Pressure 123/59 L 132/60 H 138/71 H [Right Brachial artery] O2 Saturation 96 96 94 Oxygen O2 Source Room air I&O (Last 24 Hrs): Intake and Output Totals x24h 08/22/23 08/23/23 08/24/23 23:59 23:59 22:59 Intake Total 620 1550 340 Output Total 2475 1025 800 Balance -1855 525 -460 General: Alert, Oriented x3 HEENT: Mucous membr. moist/pink Neck: Supple Neuro: Alert, Non Focal Cardiovascular: No murmurs Respiratory: No respiratory distress Abdomen: Soft, Other (Obese) Extremities: No clubbing, No edema, No tenderness/swelling - Results Results: Laboratory Results WBC 7.2 x10^3/uL (4.8-10.8) 08/23/23 05:43 RBC 3.98 10^6/uL (4.70-6.10) L 08/23/23 05:43 Hgb 11.8 g/dL (14.0-18.0) L 08/23/23 05:43 Hct 35.0 % (42.0-52.0) L 08/23/23 05:43 MCV 87.9 fL (80.0-94.0) 08/23/23 05:43 MCH 29.6 pg (27.0-31.0) 08/23/23 05:43 MCHC 33.7 g/dL (32.0-36.0) 08/23/23 05:43 RDW 12.5 % (12.0-15.0) 08/23/23 05:43 Plt Count 258 10^3/uL (130-450) 08/23/23 05:43 MPV 9.9 fL (7.4-11.4) 08/23/23 05:43 Neut # (Auto) 5.3 10^3/uL (1.5-6.6) 08/23/23 05:43 Lymph # (Auto) 0.8 10^3/uL (1.5-3.5) L 08/23/23 05:43 [place] # (Auto) 0.6 10^3/uL (0.0-1.0) 08/23/23 05:43 Eos # (Auto) 0.4 10^3/uL (0.0-0.7) 08/23/23 05:43 Baso # (Auto) 0.0 10^3/uL (0.0-0.1) 08/23/23 05:43 Absolute Nucleated RBC 0.00 x10^3/uL 08/23/23 05:43 Nucleated RBC % 0.0 /100WBC 08/23/23 05:43 Sodium 137 mmol/L (135-145) 08/23/23 05:43 Potassium 3.6 mmol/L (3.5-4.5) 08/23/23 05:43 Chloride 102 mmol/L (101-111) 08/23/23 05:43 Carbon Dioxide 28 mmol/L (21-32) 08/23/23 05:43 Anion Gap 7.0 (6-13) 08/23/23 05:43 BUN 11 mg/dL (6-20) 08/23/23 05:43 Creatinine 0.7 mg/dL (0.6-1.3) 08/23/23 05:43 Estimated GFR (MDRD) 108 (>89) 08/23/23 05:43 Glucose 157 mg/dL (74-104) H 08/23/23 05:43 POC Whole Bld Glucose 178 mg/dL (70 - 100) H 08/24/23 08:09 Estimat Average Glucose 223 mg/dL (70-100) H 08/19/23 05:30 Hemoglobin A1c % 9.4 % (4.27-6.07) H 08/19/23 05:30 Lactic Acid 2.4 mmol/L (0.5-2.2) H 08/18/23 16:47 Calcium 8.6 mg/dL (8.5-10.3) 08/23/23 05:43 Magnesium 1.8 mg/dL (1.7-2.3) 08/23/23 05:43 Total Bilirubin 1.1 mg/dL (0.2-1.0) H 08/18/23 16:47 AST 12 IU/L (10-42) 08/18/23 16:47 ALT 16 IU/L (10-60) 08/18/23 16:47 Alkaline Phosphatase 79 IU/L (42-121) 08/18/23 16:47 B-Natriuretic Peptide 77 pg/mL (5-100) 08/19/23 05:30 Total Protein 6.9 g/dL (6.4-8.9) 08/18/23 16:47 Albumin 4.0 g/dL (3.2-5.5) 08/18/23 16:47 Globulin 2.9 g/dL (2.1-4.2) 08/18/23 16:47 Albumin/Globulin Ratio 1.4 (1.0-2.2) 08/18/23 16:47 Lipase < 10 U/L (11-82) L 08/18/23 11:22 Vitamin B12 450 pg/mL (180-914) 08/22/23 05:45 TSH 4.32 uIU/mL (0.34-5.60) 08/20/23 05:26 Urine Color DARK YELLOW 08/18/23 10:38 Urine Clarity CLOUDY (CLEAR) 08/18/23 10:38 Urine pH 6.0 PH (5.0-7.5) 08/18/23 10:38 Ur Specific [place] >=1.030 (1.002-1.030) H 08/18/23 10:38 Urine Protein 100 mg/dL (NEGATIVE) H 08/18/23 10:38 Urine Glucose (UA) 500 mg/dL (NEGATIVE) H 08/18/23 10:38 Urine Ketones 15 mg/dL (NEGATIVE) H 08/18/23 10:38 Urine Occult Blood LARGE (NEGATIVE) H 08/18/23 10:38 Urine Nitrite NEGATIVE (NEGATIVE) 08/18/23 10:38 Urine Bilirubin NEGATIVE (NEGATIVE) 08/18/23 10:38 Urine Urobilinogen 4 E.U./dL (NORMAL) H 08/18/23 10:38 Ur Leukocyte Esterase TRACE (NEGATIVE) H 08/18/23 10:38 Urine RBC 11-25 /HPF (0-5) H 08/18/23 10:38 Urine WBC 11-25 /HPF (0-3) H 08/18/23 10:38 Ur Squamous Epith Cells RARE Squamous (<= Few) 08/18/23 10:38 Amorphous Sediment Moderate /LPF 08/18/23 10:38 Urine Bacteria Moderate /HPF (None Seen) H 08/18/23 10:38 Ur Microscopic Review INDICATED 08/18/23 10:38 Urine Culture Comments INDICATED 08/18/23 10:38 SARS-CoV-2 (PCR) NOT DETECTED 08/18/23 22:05 - Procedures Procedures: Procedures CARPAL TUNNEL RELEASE (02/24/13) CATARAC PHACOEMULS/ASPIR (06/22/14) INSERT LENS AT CATAR EXT (06/22/14) INSPECTION OF LOWER INTESTINAL TRACT, ENDO (08/25/17) TOTAL KNEE REPLACEMENT (08/05/13) Sepsis Event Note (H) - Evaluation Current Stage of Sepsis: Ruled out
[2023-08-24] MEDS ORDERED: PANTOPRAZOLE 40 MG TABLET PO PRN (11:06)
[2023-08-24] MEDS: LACTOBACILLUS RHAMNOSUS GG CAPSULE PO SCH (12:20)
[2023-08-24] MEDS: levoFLOXacin 250 MG TABLET PO SCH (12:20)
[2023-08-24] MEDS: ATORVASTATIN 40 MG TABLET PO SCH (21:16)
[2023-08-24] MEDS: GABAPENTIN 300 MG CAPSULE PO SCH (21:16)
[2023-08-24] MEDS: ACETAMINOPHEN 325 MG TABLET PO PRN (21:55)
[2023-08-25] MEDS: LEVOTHYROXINE 100 MCG TABLET PO SCH (06:13)
[2023-08-25] MEDS: INSULIN LISPRO 300 UNIT/3 ML PEN SUBQ SCH ×4 (08:21→21:48)
[2023-08-25] MEDS: INSULIN GLARGINE-YFGN 300 UNIT/3 ML PEN SUBQ SCH (08:23)
[2023-08-25] MEDS: SODIUM CHLORIDE FLUSH 0.9% 10 ML SYRINGE IVP SCH ×2 (08:26→17:13)
[2023-08-25] MEDS: ASPIRIN EC 81 MG TABLET PO SCH (08:27)
[2023-08-25] MEDS: FLUoxetine 10 MG CAPSULE PO SCH (08:27)
[2023-08-25] MEDS: ISOSORBIDE MONONITRATE ER 30 MG TABLET PO SCH (08:27)
[2023-08-25] MEDS: levoFLOXacin 250 MG TABLET PO SCH (08:27)
[2023-08-25] MEDS: metFORMIN 500 MG TABLET PO SCH ×2 (08:27→17:10)
[2023-08-25] MEDS: TAMSULOSIN 0.4 MG CAPSULE PO SCH (08:27)
[2023-08-25] MEDS: amLODIPine 5 MG TABLET PO SCH (08:28)
[2023-08-25] MEDS: CHOLECALCIFEROL 25 MCG TABLET PO SCH (08:28)
[2023-08-25] MEDS: MULTIVITAMIN W/MINERALS TABLET PO SCH (08:28)
[2023-08-25] MEDS: METOPROLOL SUCCINATE 50 MG TABLET PO SCH (08:28)
[2023-08-25] MEDS: LACTOBACILLUS RHAMNOSUS GG CAPSULE PO SCH (08:28)
[2023-08-25] MEDS: polyethylene glycoL 3350 17 GM PACKET PO SCH (08:37)
--- NOTE | 2023-08-25 16:25 | PROVIDER PROGRESS NOTE ---
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 Urine culture is growing Enterobacter cloacae which is resistant to Cefazolin but sens to Cefepime, it was not tested to Ceftriaxone Plan: I stopped Cefepime and changed him to po Levaquin and will plan a 2 week total a ntibx course for good prostate penetration, so planned thru 09/01/23. Probiotic started. Anticipate discharge soon (2) UTI (urinary tract infection) Assessment/Plan: Leukocytosis, elevated lactic acid, UA positive, Chronic Albert user Blood culture is neg. Urine culture is growing Enterobacter cloacae Patient started on IV antibx, mental status improved after treatment started Plan: I stopped Cefepime and changed him to po Levaquin and will plan a 2 week total antibx course for good prostate penetration, so planned thru 09/01/23. Probiotic started. (3) Exposure to COVID-19 virus Assessment/Plan: As per Notes entered by our Infection bottom turning lathe turner, Lona Kim: Patient is SARs CO-V neg. who was with him until this am is positive. CDC states a person who has a high risk of exposure and is immunocompromised should wear source control for 10 days after the last exposure. Instead of source control, Aerosol precautions will be in place. He may be retested for COVID after 7 days of last exposure. If he remains COVID negative, and does not have symptoms, he may be released from precautions. If he becomes positive, he must remain in isolation for the 10 days since symptoms began or if no symptoms from the time of positive COVID test. If he becomes symptomatic, a COVID test may be performed the day after symptoms started. He is not coughing. Plan: On day of discharge, the SNF wants a COVID test done. Ordered COVID swab to be done 08/26/ in a.m. so he can be discharged possibly 08/26 (tomorrow) (4) Newly diagnosed diabetes Assessment/Plan: Glu was 400 and Hyperglycemia persists w/ glu 200-300. No known history of diabetes before this adm His A1c was 6.5 in 2021. At this admission his A1c is 9.4 Plan: Cont Metformin and I increased his dose from 500 BID to 1000 BID Cont insulin sliding scale and Semglee daily. With the higher Metformin, the Insulin needs may be able to be decreased Cont a DM diet Cont fingerstick glu checks and ss Ins coverage He needs DM injection education or will get it now at SNF then LONGTERM (5) General weakness Conclusion/Plan: Likely related to hyponatremia, UTI and deconditioning Per patient that patient has not been doing well after the CABG 5 years ago, gradually getting worse over the time. The said she has had to t ransfer him with her own strength for 2 years and he is mostly bedbound or in a wheelchair for the past 2 mos His orthostatic VS were normal, so order was stopped. Plan: Cont to work with PT and OT I spoke to patient's Margie on 08/22. She would like him to go to a SNF for strengthening then wants him placed in LONGTERM. I told SW. (6) Chronic indwelling Albert Plan: Continue home dose Flomax (7) CAD He is s/p CABG Plan: Continue with isosorbide, aspirin, metoprolol and Lipitor (8) HTN Plan: Cont amlodipine, metoprolol (w/ hold parameters) (9) Depression Plan: Cont Prozac 20 mg daily, his home dose (10) Hypothyroidism TSH good at 4.32 Plan: Continue Levthyroxine 100 mcg (11) DORIS on CPAP Plan: Continue home CPAP, brought in his machine (12) Hyponatremia Conclusion/Plan: Resolved Possibly from poor oral intake vs imbalanced fluid intake vs (most likely) pseudohyponatremia from hyperglycemia Plan: Follow BMP intermittently (13) Hypomagnesemia Conclusion/Plan: Resolved Magnesium was low, likely related to bowel obstruction versus imbalanced oral intake Plan: Follow-up magnesium level intermittently (14) Odynophagia Conclusion/Plan: Resolved Patient told his nurse that it hurts to swallow, liquids, warm, solid or cold Plan: I changed the Protonix to prn and he finished the oral Nystatin - Current Meds Current Meds: Current Medications Generic Name Dose Route Start Last Admin Trade Name Freq PRN Reason Stop Dose Admin Acetaminophen 650 mg 08/24/23 18:08 08/24/23 21:55 Acetaminophen 325 Mg Tablet PO 650 mg Q4HR PRN Administration Pain or Fever > 38C (100.4F) Amlodipine Besylate 10 mg 08/19/23 15:28 08/25/23 08:28 Amlodipine 5 Mg Tablet PO 10 mg DAILY BRYCE Administration Aspirin 81 mg 08/19/23 09:00 08/25/23 08:27 Aspirin Ec 81 Mg Tablet PO 81 mg DAILY BRYCE Administration Atorvastatin Calcium 40 mg 08/18/23 21:00 08/24/23 21:16 Atorvastatin 40 Mg Tablet PO 40 mg QPM BRYCE Administration Cholecalciferol 50 mcg 08/20/23 17:00 08/25/23 08:28 Cholecalciferol 25 Mcg Tablet PO 50 mcg DAILY BRYCE Administration Fluoxetine HCl 20 mg 08/19/23 09:00 08/25/23 08:27 Fluoxetine 10 Mg Capsule PO 20 mg DAILY BRYCE Administration Gabapentin 300 mg 08/18/23 21:00 08/24/23 21:16 Gabapentin 300 Mg Capsule PO 300 mg HS BRYCE Administration Insulin Glargine-yfgn 5 unit 08/25/23 09:00 08/25/23 08:23 Insulin Glargine-Yfgn 300 Unit/3 Ml Pen SUBQ 5 unit DAILY BRYCE Administration Insulin Human Lispro 1 - 9 unit 08/19/23 21:00 08/25/23 12:02 Insulin Lispro 300 Unit/3 Ml Pen SUBQ 3 unit 0800,1200,1700,2100 BRYCE Administration Protocol Isosorbide Mononitrate 60 mg 08/19/23 09:00 08/25/23 08:27 Isosorbide Mononitrate Er 30 Mg Tablet PO 60 mg DAILY BRYCE Administration Lactobacillus Rhamnosus 1 cap 08/24/23 10:00 08/25/23 08:28 Lactobacillus Rhamnosus Gg Capsule PO 1 cap DAILY BRYCE Administration Levofloxacin 750 mg 08/24/23 10:00 08/25/23 08:27 Levofloxacin 250 Mg Tablet PO 750 mg DAILY BRYCE Administration Levothyroxine Sodium 100 mcg 08/19/23 07:00 08/25/23 06:13 Levothyroxine 100 Mcg Tablet PO 100 mcg QDAC BRYCE Administration Metformin HCl 1,000 mg 08/24/23 17:00 08/25/23 08:27 Metformin 500 Mg Tablet PO 1,000 mg BIDWM BRYCE Administration Metoprolol Succinate 50 mg 08/19/23 15:29 08/25/23 08:28 Metoprolol Succinate 50 Mg Tablet PO 50 mg DAILY BRYCE Administration Multivitamins/Minerals 1 tab 08/21/23 08:00 08/25/23 08:28 Multivitamin W/Minerals Tablet PO 1 tab DAILYWM BRYCE Administration Oxycodone HCl 5 mg 08/18/23 17:16 08/20/23 17:30 Oxycodone 5 Mg Tablet PO 5 mg Q4HR PRN Administration Moderate Pain (Level 4-6) Polyethylene Glycol 17 gm 08/22/23 09:00 08/25/23 08:37 Polyethylene Glycol 3350 17 Gm Packet PO Not Given DAILY BRYCE Sodium Chloride 10 ml 08/18/23 13:53 08/22/23 21:58 Sodium Chloride Flush 0.9% 10 Ml Syringe IVP 10 ml PRN PRN Administration NEEDED PER PROVIDER ORDERS Sodium Chloride 10 ml 08/18/23 17:00 08/25/23 08:26 Sodium Chloride Flush 0.9% 10 Ml Syringe IVP 10 ml 0100,0900,1700 BRYCE Administration Tamsulosin HCl 0.4 mg 08/19/23 09:00 08/25/23 08:27 Tamsulosin 0.4 Mg Capsule PO 0.4 mg DAILY BRYCE Administration - Lab Result Fish Bone Diagrams: 08/23/23 05:43 08/23/23 05:43 - Additional Planning My Orders: My Active Orders 08/24/23 17:00 metFORMIN [Glucophage] 1,000 mg PO BIDWM 08/24/23 18:08 Acetaminophen [Tylenol] 650 mg PO Q4HR PRN 08/25/23 09:00 Insulin Glargine-Yfgn [Semglee] 5 unit SUBQ DAILY 08/26/23 07:00 COVID-19 [facility] Urgent Subjective - Subjective Patient Reports: Resting Comfortably, No Complaints Nursing Reports: Other (working with PT and OT) Objective Vital Signs: Vital Signs - 24 hr 08/24/23 08/25/23 23:56 08:00 Temperature 36.4 C L 36.4 C L Heart Rate [ 82 86 Brachial] Respiratory 19 18 Rate Blood Pressure 141/71 H 140/66 H [Right Brachial artery] O2 Saturation 98 94 Oxygen O2 Source Room air I&O (Last 24 Hrs): Intake and Output Totals x24h 08/24/23 08/24/23 08/25/23 00:59 23:59 23:59 Intake Total 1200 Output Total 2049 Balance -850 General: Alert, Oriented x3 (exam done remotely due to isolation) HEENT: Mucous membr. moist/pink Neck: Supple Neuro: Alert Cardiovascular: Regular rate Respiratory: No respiratory distress Abdomen: Other (Obese) Extremities: No tenderness/swelling - Results Results: Laboratory Results WBC 7.2 x10^3/uL (4.8-10.8) 08/23/23 05:43 RBC 3.98 10^6/uL (4.70-6.10) L 08/23/23 05:43 Hgb 11.8 g/dL (14.0-18.0) L 08/23/23 05:43 Hct 35.0 % (42.0-52.0) L 08/23/23 05:43 MCV 87.9 fL (80.0-94.0) 08/23/23 05:43 MCH 29.6 pg (27.0-31.0) 08/23/23 05:43 MCHC 33.7 g/dL (32.0-36.0) 08/23/23 05:43 RDW 12.5 % (12.0-15.0) 08/23/23 05:43 Plt Count 258 10^3/uL (130-450) 08/23/23 05:43 MPV 9.9 fL (7.4-11.4) 08/23/23 05:43 Neut # (Auto) 5.3 10^3/uL (1.5-6.6) 08/23/23 05:43 Lymph # (Auto) 0.8 10^3/uL (1.5-3.5) L 08/23/23 05:43 [place] # (Auto) 0.6 10^3/uL (0.0-1.0) 08/23/23 05:43 Eos # (Auto) 0.4 10^3/uL (0.0-0.7) 08/23/23 05:43 Baso # (Auto) 0.0 10^3/uL (0.0-0.1) 08/23/23 05:43 Absolute Nucleated RBC 0.00 x10^3/uL 08/23/23 05:43 Nucleated RBC % 0.0 /100WBC 08/23/23 05:43 Sodium 137 mmol/L (135-145) 08/23/23 05:43 Potassium 3.6 mmol/L (3.5-4.5) 08/23/23 05:43 Chloride 102 mmol/L (101-111) 08/23/23 05:43 Carbon Dioxide 28 mmol/L (21-32) 08/23/23 05:43 Anion Gap 7.0 (6-13) 08/23/23 05:43 BUN 11 mg/dL (6-20) 08/23/23 05:43 Creatinine 0.7 mg/dL (0.6-1.3) 08/23/23 05:43 Estimated GFR (MDRD) 108 (>89) 08/23/23 05:43 Glucose 157 mg/dL (74-104) H 08/23/23 05:43 POC Whole Bld Glucose 193 mg/dL (70 - 100) H 08/25/23 11:27 Estimat Average Glucose 223 mg/dL (70-100) H 08/19/23 05:30 Hemoglobin A1c % 9.4 % (4.27-6.07) H 08/19/23 05:30 Lactic Acid 2.4 mmol/L (0.5-2.2) H 08/18/23 16:47 Calcium 8.6 mg/dL (8.5-10.3) 08/23/23 05:43 Magnesium 1.8 mg/dL (1.7-2.3) 08/23/23 05:43 Total Bilirubin 1.1 mg/dL (0.2-1.0) H 08/18/23 16:47 AST 12 IU/L (10-42) 08/18/23 16:47 ALT 16 IU/L (10-60) 08/18/23 16:47 Alkaline Phosphatase 79 IU/L (42-121) 08/18/23 16:47 B-Natriuretic Peptide 77 pg/mL (5-100) 08/19/23 05:30 Total Protein 6.9 g/dL (6.4-8.9) 08/18/23 16:47 Albumin 4.0 g/dL (3.2-5.5) 08/18/23 16:47 Globulin 2.9 g/dL (2.1-4.2) 08/18/23 16:47 Albumin/Globulin Ratio 1.4 (1.0-2.2) 08/18/23 16:47 Lipase < 10 U/L (11-82) L 08/18/23 11:22 Vitamin B12 450 pg/mL (180-914) 08/22/23 05:45 TSH 4.32 uIU/mL (0.34-5.60) 08/20/23 05:26 Urine Color DARK YELLOW 08/18/23 10:38 Urine Clarity CLOUDY (CLEAR) 08/18/23 10:38 Urine pH 6.0 PH (5.0-7.5) 08/18/23 10:38 Ur Specific [place] >=1.030 (1.002-1.030) H 08/18/23 10:38 Urine Protein 100 mg/dL (NEGATIVE) H 08/18/23 10:38 Urine Glucose (UA) 500 mg/dL (NEGATIVE) H 08/18/23 10:38 Urine Ketones 15 mg/dL (NEGATIVE) H 08/18/23 10:38 Urine Occult Blood LARGE (NEGATIVE) H 08/18/23 10:38 Urine Nitrite NEGATIVE (NEGATIVE) 08/18/23 10:38 Urine Bilirubin NEGATIVE (NEGATIVE) 08/18/23 10:38 Urine Urobilinogen 4 E.U./dL (NORMAL) H 08/18/23 10:38 Ur Leukocyte Esterase TRACE (NEGATIVE) H 08/18/23 10:38 Urine RBC 11-25 /HPF (0-5) H 08/18/23 10:38 Urine WBC 11-25 /HPF (0-3) H 08/18/23 10:38 Ur Squamous Epith Cells RARE Squamous (<= Few) 08/18/23 10:38 Amorphous Sediment Moderate /LPF 08/18/23 10:38 Urine Bacteria Moderate /HPF (None Seen) H 08/18/23 10:38 Ur Microscopic Review INDICATED 08/18/23 10:38 Urine Culture Comments INDICATED 08/18/23 10:38 SARS-CoV-2 (PCR) NOT DETECTED 08/18/23 22:05 - Procedures Procedures: Procedures CARPAL TUNNEL RELEASE (02/24/13) CATARAC PHACOEMULS/ASPIR (06/22/14) INSERT LENS AT CATAR EXT (06/22/14) INSPECTION OF LOWER INTESTINAL TRACT, ENDO (08/25/17) TOTAL KNEE REPLACEMENT (08/05/13) Sepsis Event Note (H) - Evaluation Current Stage of Sepsis: Ruled out
[2023-08-25] MEDS: ACETAMINOPHEN 325 MG TABLET PO PRN (19:40)
[2023-08-25] MEDS: oxyCODONE 5 MG TABLET PO PRN (21:47)
[2023-08-25] MEDS: GABAPENTIN 300 MG CAPSULE PO SCH (21:47)
[2023-08-25] MEDS: ATORVASTATIN 40 MG TABLET PO SCH (21:48)
[2023-08-26] MEDS: SODIUM CHLORIDE FLUSH 0.9% 10 ML SYRINGE IVP SCH ×3 (00:37→16:30)
[2023-08-26] MEDS: LEVOTHYROXINE 100 MCG TABLET PO SCH (06:13)
[2023-08-26] MEDS: METOPROLOL SUCCINATE 50 MG TABLET PO SCH (08:24)
[2023-08-26] MEDS: ISOSORBIDE MONONITRATE ER 30 MG TABLET PO SCH (08:24)
[2023-08-26] MEDS: CHOLECALCIFEROL 25 MCG TABLET PO SCH (08:25)
[2023-08-26] MEDS: amLODIPine 5 MG TABLET PO SCH (08:25)
[2023-08-26] MEDS: LACTOBACILLUS RHAMNOSUS GG CAPSULE PO SCH (08:25)
[2023-08-26] MEDS: FLUoxetine 10 MG CAPSULE PO SCH (08:26)
[2023-08-26] MEDS: ASPIRIN EC 81 MG TABLET PO SCH (08:26)
[2023-08-26] MEDS: MULTIVITAMIN W/MINERALS TABLET PO SCH (08:26)
[2023-08-26] MEDS: levoFLOXacin 250 MG TABLET PO SCH (08:27)
[2023-08-26] MEDS: metFORMIN 500 MG TABLET PO SCH ×2 (08:28→17:25)
[2023-08-26] MEDS: INSULIN LISPRO 300 UNIT/3 ML PEN SUBQ SCH ×4 (08:29→21:16)
[2023-08-26] MEDS: INSULIN GLARGINE-YFGN 300 UNIT/3 ML PEN SUBQ SCH (08:30)
[2023-08-26] MEDS: polyethylene glycoL 3350 17 GM PACKET PO SCH (08:31)
[2023-08-26] MEDS: TAMSULOSIN 0.4 MG CAPSULE PO SCH (08:34)
--- NOTE | 2023-08-26 11:53 | PROVIDER PROGRESS NOTE ---
Assessment/Plan - Problem List (1) Infection due to Enterobacter cloacae Assessment/Plan: Continue PO Levofloxacin 750 mg daily for a 2 week course. Stop date is 09/01/23. (2) UTI (urinary tract infection) Assessment/Plan: As above, continue levofloxacin based on most recent blood cultures. (3) Exposure to COVID-19 virus Assessment/Plan: Returned positive for COVID-19 on 08/26. He will need to quarantine for 5 days in isolation prior to discharge to SNF. Patient denies any sx. Will monitor for respiratory distress. (4) General weakness Assessment/Plan: Multifactorial: Due to UTI, hypoNa, deconditioning. He continues to work with PT/OT. He was suppose to discharge to SNF today, however COVID-19 returned positive. Anticipate 5 day isolation then discharge to SNF. (5) Chronic indwelling Albert catheter Assessment/Plan: Continue Flomax. (6) CAD (coronary artery disease) Assessment/Plan: Prior history of a CABG. Continue ASA, metoprolol, Atorvastatin, isosorbide. (7) HTN (hypertension) Assessment/Plan: Continue home antihypertensives. (8) Newly diagnosed diabetes Assessment/Plan: A1c this admission was 9.4. Poorly controlled. Metformin 1000 mg BID. SSI. - Current Meds Current Meds: Current Medications Generic Name Dose Route Start Last Admin Trade Name Freq PRN Reason Stop Dose Admin Acetaminophen 650 mg 08/24/23 18:08 08/25/23 19:40 Acetaminophen 325 Mg Tablet PO 650 mg Q4HR PRN Administration Pain or Fever > 38C (100.4F) Amlodipine Besylate 10 mg 08/19/23 15:28 08/26/23 08:25 Amlodipine 5 Mg Tablet PO 10 mg DAILY BRYCE Administration Aspirin 81 mg 08/19/23 09:00 08/26/23 08:26 Aspirin Ec 81 Mg Tablet PO 81 mg DAILY BRYCE Administration Atorvastatin Calcium 40 mg 08/18/23 21:00 08/25/23 21:48 Atorvastatin 40 Mg Tablet PO 40 mg QPM BRYCE Administration Cholecalciferol 50 mcg 08/20/23 17:00 08/26/23 08:25 Cholecalciferol 25 Mcg Tablet PO 50 mcg DAILY BRYCE Administration Fluoxetine HCl 20 mg 08/19/23 09:00 08/26/23 08:26 Fluoxetine 10 Mg Capsule PO 20 mg DAILY BRYCE Administration Gabapentin 300 mg 08/18/23 21:00 08/25/23 21:47 Gabapentin 300 Mg Capsule PO 300 mg HS BRYCE Administration Insulin Glargine-yfgn 5 unit 08/25/23 09:00 08/26/23 08:30 Insulin Glargine-Yfgn 300 Unit/3 Ml Pen SUBQ 5 unit DAILY BRYCE Administration Insulin Human Lispro 1 - 9 unit 08/19/23 21:00 08/26/23 08:29 Insulin Lispro 300 Unit/3 Ml Pen SUBQ 1 unit 0800,1200,1700,2100 BRYCE Administration Protocol Isosorbide Mononitrate 60 mg 08/19/23 09:00 08/26/23 08:24 Isosorbide Mononitrate Er 30 Mg Tablet PO 60 mg DAILY BRYCE Administration Lactobacillus Rhamnosus 1 cap 08/24/23 10:00 08/26/23 08:25 Lactobacillus Rhamnosus Gg Capsule PO 1 cap DAILY BRYCE Administration Levofloxacin 750 mg 08/24/23 10:00 08/26/23 08:27 Levofloxacin 250 Mg Tablet PO 750 mg DAILY BRYCE Administration Levothyroxine Sodium 100 mcg 08/19/23 07:00 08/26/23 06:13 Levothyroxine 100 Mcg Tablet PO 100 mcg QDAC BRYCE Administration Metformin HCl 1,000 mg 08/24/23 17:00 08/26/23 08:28 Metformin 500 Mg Tablet PO 1,000 mg BIDWM BRYCE Administration Metoprolol Succinate 50 mg 08/19/23 15:29 08/26/23 08:24 Metoprolol Succinate 50 Mg Tablet PO 50 mg DAILY BRYCE Administration Multivitamins/Minerals 1 tab 08/21/23 08:00 08/26/23 08:26 Multivitamin W/Minerals Tablet PO 1 tab DAILYWM BRYCE Administration Oxycodone HCl 5 mg 08/18/23 17:16 08/25/23 21:47 Oxycodone 5 Mg Tablet PO 5 mg Q4HR PRN Administration Moderate Pain (Level 4-6) Polyethylene Glycol 17 gm 08/22/23 09:00 08/26/23 08:31 Polyethylene Glycol 3350 17 Gm Packet PO 17 gm DAILY BRYCE Administration Sodium Chloride 10 ml 08/18/23 13:53 08/22/23 21:58 Sodium Chloride Flush 0.9% 10 Ml Syringe IVP 10 ml PRN PRN Administration NEEDED PER PROVIDER ORDERS Sodium Chloride 10 ml 08/18/23 17:00 08/26/23 08:34 Sodium Chloride Flush 0.9% 10 Ml Syringe IVP 10 ml 0100,0900,1700 BRYCE Administration Tamsulosin HCl 0.4 mg 08/19/23 09:00 08/26/23 08:34 Tamsulosin 0.4 Mg Capsule PO 0.4 mg DAILY BRYCE Administration - Lab Result Fish Bone Diagrams: 08/23/23 05:43 08/23/23 05:43 - Additional Planning My Orders: My Active Orders 08/26/23 COVID-19 [facility] Routine Subjective - Subjective Patient Reports: Feeling Better Nursing Reports: No Complaints Objective Vital Signs: Vital Signs - 24 hr 08/25/23 08/26/23 08/26/23 16:00 00:32 08:07 Temperature 36.4 C L 36.4 C L 36.4 C L Heart Rate [ 89 85 87 Brachial] Respiratory 18 20 20 Rate Blood Pressure 121/58 L 112/56 L 145/71 H [Right Brachial artery] O2 Saturation 96 97 94 Oxygen O2 Source Room air I&O (Last 24 Hrs): Intake and Output Totals x24h 08/24/23 08/25/23 08/26/23 23:59 23:59 23:59 Intake Total 1500 960 Output Total 2400 275 Balance -900 685 General: Alert, Oriented x3, Cooperative, No acute distress HEENT: Atraumatic, PERRLA, EOMI Neck: Supple, No JVD, No thyromegaly, +2 carotid pulse wo bruit, No LAD Lymphatic: no adenopathy Neuro: Alert, CN 2-12 Grossly Intact, Oriented Times 3 Cardiovascular: Regular rate, Normal S1, Normal S2, No murmurs Respiratory: Chest non-tender, No respiratory distress, Breath sounds nml Abdomen: Normal bowel sounds, Soft, No tenderness, No hepatospenomegaly, No masses Genitourinary: Normal Inspection, No Mass, No Discharge, No Meatal Blood, No Hernia Rectal: Non-Tender Extremities: No clubbing, No cyanosis, No edema, Normal pulses, No tenderness/swelling Skin: No rashes, No breakdown, No significant lesion - Results Results: Laboratory Results WBC 7.2 x10^3/uL (4.8-10.8) 08/23/23 05:43 RBC 3.98 10^6/uL (4.70-6.10) L 08/23/23 05:43 Hgb 11.8 g/dL (14.0-18.0) L 08/23/23 05:43 Hct 35.0 % (42.0-52.0) L 08/23/23 05:43 MCV 87.9 fL (80.0-94.0) 08/23/23 05:43 MCH 29.6 pg (27.0-31.0) 08/23/23 05:43 MCHC 33.7 g/dL (32.0-36.0) 08/23/23 05:43 RDW 12.5 % (12.0-15.0) 08/23/23 05:43 Plt Count 258 10^3/uL (130-450) 08/23/23 05:43 MPV 9.9 fL (7.4-11.4) 08/23/23 05:43 Neut # (Auto) 5.3 10^3/uL (1.5-6.6) 08/23/23 05:43 Lymph # (Auto) 0.8 10^3/uL (1.5-3.5) L 08/23/23 05:43 [place] # (Auto) 0.6 10^3/uL (0.0-1.0) 08/23/23 05:43 Eos # (Auto) 0.4 10^3/uL (0.0-0.7) 08/23/23 05:43 Baso # (Auto) 0.0 10^3/uL (0.0-0.1) 08/23/23 05:43 Absolute Nucleated RBC 0.00 x10^3/uL 08/23/23 05:43 Nucleated RBC % 0.0 /100WBC 08/23/23 05:43 Sodium 137 mmol/L (135-145) 08/23/23 05:43 Potassium 3.6 mmol/L (3.5-4.5) 08/23/23 05:43 Chloride 102 mmol/L (101-111) 08/23/23 05:43 Carbon Dioxide 28 mmol/L (21-32) 08/23/23 05:43 Anion Gap 7.0 (6-13) 08/23/23 05:43 BUN 11 mg/dL (6-20) 08/23/23 05:43 Creatinine 0.7 mg/dL (0.6-1.3) 08/23/23 05:43 Estimated GFR (MDRD) 108 (>89) 08/23/23 05:43 Glucose 157 mg/dL (74-104) H 08/23/23 05:43 POC Whole Bld Glucose 163 mg/dL (70 - 100) H 08/26/23 11:42 Estimat Average Glucose 223 mg/dL (70-100) H 08/19/23 05:30 Hemoglobin A1c % 9.4 % (4.27-6.07) H 08/19/23 05:30 Lactic Acid 2.4 mmol/L (0.5-2.2) H 08/18/23 16:47 Calcium 8.6 mg/dL (8.5-10.3) 08/23/23 05:43 Magnesium 1.8 mg/dL (1.7-2.3) 08/23/23 05:43 Total Bilirubin 1.1 mg/dL (0.2-1.0) H 08/18/23 16:47 AST 12 IU/L (10-42) 08/18/23 16:47 ALT 16 IU/L (10-60) 08/18/23 16:47 Alkaline Phosphatase 79 IU/L (42-121) 08/18/23 16:47 B-Natriuretic Peptide 77 pg/mL (5-100) 08/19/23 05:30 Total Protein 6.9 g/dL (6.4-8.9) 08/18/23 16:47 Albumin 4.0 g/dL (3.2-5.5) 08/18/23 16:47 Globulin 2.9 g/dL (2.1-4.2) 08/18/23 16:47 Albumin/Globulin Ratio 1.4 (1.0-2.2) 08/18/23 16:47 Lipase < 10 U/L (11-82) L 08/18/23 11:22 Vitamin B12 450 pg/mL (180-914) 08/22/23 05:45 TSH 4.32 uIU/mL (0.34-5.60) 08/20/23 05:26 Urine Color DARK YELLOW 08/18/23 10:38 Urine Clarity CLOUDY (CLEAR) 08/18/23 10:38 Urine pH 6.0 PH (5.0-7.5) 08/18/23 10:38 Ur Specific [place] >=1.030 (1.002-1.030) H 08/18/23 10:38 Urine Protein 100 mg/dL (NEGATIVE) H 08/18/23 10:38 Urine Glucose (UA) 500 mg/dL (NEGATIVE) H 08/18/23 10:38 Urine Ketones 15 mg/dL (NEGATIVE) H 08/18/23 10:38 Urine Occult Blood LARGE (NEGATIVE) H 08/18/23 10:38 Urine Nitrite NEGATIVE (NEGATIVE) 08/18/23 10:38 Urine Bilirubin NEGATIVE (NEGATIVE) 08/18/23 10:38 Urine Urobilinogen 4 E.U./dL (NORMAL) H 08/18/23 10:38 Ur Leukocyte Esterase TRACE (NEGATIVE) H 08/18/23 10:38 Urine RBC 11-25 /HPF (0-5) H 08/18/23 10:38 Urine WBC 11-25 /HPF (0-3) H 08/18/23 10:38 Ur Squamous Epith Cells RARE Squamous (<= Few) 08/18/23 10:38 Amorphous Sediment Moderate /LPF 08/18/23 10:38 Urine Bacteria Moderate /HPF (None Seen) H 08/18/23 10:38 Ur Microscopic Review INDICATED 08/18/23 10:38 Urine Culture Comments INDICATED 08/18/23 10:38 SARS-CoV-2 (PCR) DETECTED A 08/26/23 00:30 - Procedures Procedures: Procedures CARPAL TUNNEL RELEASE (02/24/13) CATARAC PHACOEMULS/ASPIR (06/22/14) INSERT LENS AT CATAR EXT (06/22/14) INSPECTION OF LOWER INTESTINAL TRACT, ENDO (08/25/17) TOTAL KNEE REPLACEMENT (08/05/13) Sepsis Event Note (H) - Evaluation Current Stage of Sepsis: Ruled out ABX Reporting Has patient been on IV antibiotics over the past 48 hours?: No Current Medications - Current Medications Current Medications: Active Medications Generic Name Dose Route Start Last Admin Trade Name Freq PRN Reason Stop Dose Admin Acetaminophen 650 mg 08/24/23 18:08 08/25/23 19:40 Acetaminophen 325 Mg Tablet PO 650 mg Q4HR PRN Administration Pain or Fever > 38C (100.4F) Amlodipine Besylate 10 mg 08/19/23 15:28 08/26/23 08:25 Amlodipine 5 Mg Tablet PO 10 mg DAILY BRYCE Administration Aspirin 81 mg 08/19/23 09:00 08/26/23 08:26 Aspirin Ec 81 Mg Tablet PO 81 mg DAILY BRYCE Administration Atorvastatin Calcium 40 mg 08/18/23 21:00 08/25/23 21:48 Atorvastatin 40 Mg Tablet PO 40 mg QPM BRYCE Administration Calcium Carbonate/Glycine 500 mg 08/19/23 18:38 Calcium Carbonate Chew 500 Mg Tablet PO Q6H PRN INDIGESTION Carboxymethylcellulose 1 drops 08/24/23 00:53 Carboxymethylcellulose Ophth Drops EACHEYE PRN PRN Dry Eye Cholecalciferol 50 mcg 08/20/23 17:00 08/26/23 08:25 Cholecalciferol 25 Mcg Tablet PO 50 mcg DAILY BRYCE Administration Fluoxetine HCl 20 mg 08/19/23 09:00 08/26/23 08:26 Fluoxetine 10 Mg Capsule PO 20 mg DAILY BRYCE Administration Gabapentin 300 mg 08/18/23 21:00 08/25/23 21:47 Gabapentin 300 Mg Capsule PO 300 mg HS BRYCE Administration Insulin Glargine-yfgn 5 unit 08/25/23 09:00 08/26/23 08:30 Insulin Glargine-Yfgn 300 Unit/3 Ml Pen SUBQ 5 unit DAILY BRYCE Administration Insulin Human Lispro 1 - 9 unit 08/19/23 21:00 08/26/23 08:29 Insulin Lispro 300 Unit/3 Ml Pen SUBQ 1 unit 0800,1200,1700,2100 BRYCE Administration Protocol Isosorbide Mononitrate 60 mg 08/19/23 09:00 08/26/23 08:24 Isosorbide Mononitrate Er 30 Mg Tablet PO 60 mg DAILY BRYCE Administration Lactobacillus Rhamnosus 1 cap 08/24/23 10:00 08/26/23 08:25 Lactobacillus Rhamnosus Gg Capsule PO 1 cap DAILY BRYCE Administration Levofloxacin 750 mg 08/24/23 10:00 08/26/23 08:27 Levofloxacin 250 Mg Tablet PO 750 mg DAILY BRYCE Administration Levothyroxine Sodium 100 mcg 08/19/23 07:00 08/26/23 06:13 Levothyroxine 100 Mcg Tablet PO 100 mcg QDAC BRYCE Administration Metformin HCl 1,000 mg 08/24/23 17:00 08/26/23 08:28 Metformin 500 Mg Tablet PO 1,000 mg BIDWM BRYCE Administration Metoprolol Succinate 50 mg 08/19/23 15:29 08/26/23 08:24 Metoprolol Succinate 50 Mg Tablet PO 50 mg DAILY BRYCE Administration Multivitamins/Minerals 1 tab 08/21/23 08:00 08/26/23 08:26 Multivitamin W/Minerals Tablet PO 1 tab DAILYWM BRYCE Administration Oxycodone HCl 5 mg 08/18/23 17:16 08/25/23 21:47 Oxycodone 5 Mg Tablet PO 5 mg Q4HR PRN Administration Moderate Pain (Level 4-6) Pantoprazole Sodium 40 mg 08/24/23 11:06 Pantoprazole 40 Mg Tablet PO QDAC PRN Heartburn Polyethylene Glycol 17 gm 08/22/23 09:00 08/26/23 08:31 Polyethylene Glycol 3350 17 Gm Packet PO 17 gm DAILY BRYCE Administration Sodium Chloride 10 ml 08/18/23 13:53 08/22/23 21:58 Sodium Chloride Flush 0.9% 10 Ml Syringe IVP 10 ml PRN PRN Administration NEEDED PER PROVIDER ORDERS Sodium Chloride 10 ml 08/18/23 17:00 08/26/23 08:34 Sodium Chloride Flush 0.9% 10 Ml Syringe IVP 10 ml 0100,0900,1700 BRYCE Administration Tamsulosin HCl 0.4 mg 08/19/23 09:00 08/26/23 08:34 Tamsulosin 0.4 Mg Capsule PO 0.4 mg DAILY BRYCE Administration Atorvastatin Calcium 40 mg PO DAILY PM 02/19/13 Levothyroxine Sodium [Synthroid] 100 mcg PO DAILY 02/19/13 Metoprolol Succinate [Toprol Xl] 50 mg PO DAILY PM 02/19/13 Tamsulosin [Flomax] 0.4 mg PO DAILY 08/22/17 Sildenafil Citrate [Viagra] 1 tab PO PRN PRN 09/23/17 Isosorbide Mononitrate [Isosorbide Mononitrate ER] 60 mg PO DAILY 11/13/20 Multivitamin 1 tab ORAL DAILY 11/13/20 Aspirin [[place] Aspirin] 81 mg PO DAILY 07/11/23 Gabapentin [Neurontin] 300 mg PO HS 07/11/23 Amlodipine Besylate [Norvasc] 2.5 mg PO DAILY 08/18/23 Fluoxetine HCl 60 mg PO DAILY 08/18/23 Mirabegron [Myrbetriq] 25 mg PO DAILY 08/19/23
[2023-08-26] MEDS: ATORVASTATIN 40 MG TABLET PO SCH (21:22)
[2023-08-26] MEDS: GABAPENTIN 300 MG CAPSULE PO SCH (21:22)
[2023-08-26] MEDS: oxyCODONE 5 MG TABLET PO PRN (21:29)
[2023-08-27] MEDS: ACETAMINOPHEN 325 MG TABLET PO PRN (00:11)
[2023-08-27] MEDS: SODIUM CHLORIDE FLUSH 0.9% 10 ML SYRINGE IVP SCH ×3 (00:13→17:32)
[2023-08-27] MEDS: LEVOTHYROXINE 100 MCG TABLET PO SCH (06:34)
[2023-08-27] MEDS: INSULIN GLARGINE-YFGN 300 UNIT/3 ML PEN SUBQ SCH (08:56)
[2023-08-27] MEDS: TAMSULOSIN 0.4 MG CAPSULE PO SCH (08:57)
[2023-08-27] MEDS: ASPIRIN EC 81 MG TABLET PO SCH (08:57)
[2023-08-27] MEDS: MULTIVITAMIN W/MINERALS TABLET PO SCH (08:57)
[2023-08-27] MEDS: LACTOBACILLUS RHAMNOSUS GG CAPSULE PO SCH (08:57)
[2023-08-27] MEDS: FLUoxetine 10 MG CAPSULE PO SCH (08:58)
[2023-08-27] MEDS: levoFLOXacin 250 MG TABLET PO SCH (08:58)
[2023-08-27] MEDS: CHOLECALCIFEROL 25 MCG TABLET PO SCH (08:59)
[2023-08-27] MEDS: metFORMIN 500 MG TABLET PO SCH ×2 (08:59→17:32)
[2023-08-27] MEDS: amLODIPine 5 MG TABLET PO SCH (08:59)
[2023-08-27] MEDS: ISOSORBIDE MONONITRATE ER 30 MG TABLET PO SCH (09:00)
[2023-08-27] MEDS: METOPROLOL SUCCINATE 50 MG TABLET PO SCH (09:00)
[2023-08-27] MEDS: INSULIN LISPRO 300 UNIT/3 ML PEN SUBQ SCH ×4 (09:02→21:06)
[2023-08-27] MEDS: polyethylene glycoL 3350 17 GM PACKET PO SCH (09:02)
--- NOTE | 2023-08-27 15:48 | PROVIDER PROGRESS NOTE ---
Assessment/Plan - Problem List (1) Infection due to Enterobacter cloacae Assessment/Plan: --Continue PO Levofloxacin 750 mg daily for a 2 week course. Stop date is 09/01/23. (2) UTI (urinary tract infection) Assessment/Plan: --As above, continue levofloxacin based on most recent blood cultures. (3) Exposure to COVID-19 virus Assessment/Plan: --Returned positive for COVID-19 on 08/26. He will need to quarantine for 5 days in isolation prior to discharge to SNF. Patient denies any sx. Will monitor for respiratory distress. (4) General weakness Assessment/Plan: --Multifactorial: Due to UTI, hypoNa, deconditioning. He continues to work with PT/OT. He was suppose to discharge to SNF today, however COVID-19 returned positive. Anticipate 5 day isolation then discharge to SNF. (5) Chronic indwelling Albert catheter Assessment/Plan: --Continue Flomax. (6) CAD (coronary artery disease) Assessment/Plan: --Prior history of a CABG. Continue ASA, metoprolol, Atorvastatin, isosorbide. (7) HTN (hypertension) Assessment/Plan: --Continue home antihypertensives. (8) Newly diagnosed diabetes Assessment/Plan: --A1c this admission was 9.4. Poorly controlled. Metformin 1000 mg BID. SSI. - Current Meds Current Meds: Current Medications Generic Name Dose Route Start Last Admin Trade Name Freq PRN Reason Stop Dose Admin Acetaminophen 650 mg 08/24/23 18:08 08/27/23 00:11 Acetaminophen 325 Mg Tablet PO 650 mg Q4HR PRN Administration Pain or Fever > 38C (100.4F) Amlodipine Besylate 10 mg 08/19/23 15:28 08/27/23 08:59 Amlodipine 5 Mg Tablet PO 10 mg DAILY BRYCE Administration Aspirin 81 mg 08/19/23 09:00 08/27/23 08:57 Aspirin Ec 81 Mg Tablet PO 81 mg DAILY BRYCE Administration Atorvastatin Calcium 40 mg 08/18/23 21:00 08/26/23 21:22 Atorvastatin 40 Mg Tablet PO 40 mg QPM BRYCE Administration Cholecalciferol 50 mcg 08/20/23 17:00 08/27/23 08:59 Cholecalciferol 25 Mcg Tablet PO 50 mcg DAILY BRYCE Administration Fluoxetine HCl 20 mg 08/19/23 09:00 08/27/23 08:58 Fluoxetine 10 Mg Capsule PO 20 mg DAILY BRYCE Administration Gabapentin 300 mg 08/18/23 21:00 08/26/23 21:22 Gabapentin 300 Mg Capsule PO 300 mg HS BRYCE Administration Insulin Human Lispro 1 - 9 unit 08/19/23 21:00 08/27/23 12:40 Insulin Lispro 300 Unit/3 Ml Pen SUBQ Not Given 0800,1200,1700,2100 [facility] Protocol Isosorbide Mononitrate 60 mg 08/19/23 09:00 08/27/23 09:00 Isosorbide Mononitrate Er 30 Mg Tablet PO 60 mg DAILY BRYCE Administration Lactobacillus Rhamnosus 1 cap 08/24/23 10:00 08/27/23 08:57 Lactobacillus Rhamnosus Gg Capsule PO 1 cap DAILY BRYCE Administration Levofloxacin 750 mg 08/24/23 10:00 08/27/23 08:58 Levofloxacin 250 Mg Tablet PO 750 mg DAILY BRYCE Administration Levothyroxine Sodium 100 mcg 08/19/23 07:00 08/27/23 06:34 Levothyroxine 100 Mcg Tablet PO 100 mcg QDAC BRYCE Administration Metformin HCl 1,000 mg 08/24/23 17:00 08/27/23 08:59 Metformin 500 Mg Tablet PO 1,000 mg BIDWM BRYCE Administration Metoprolol Succinate 50 mg 08/19/23 15:29 08/27/23 09:00 Metoprolol Succinate 50 Mg Tablet PO 50 mg DAILY BRYCE Administration Multivitamins/Minerals 1 tab 08/21/23 08:00 08/27/23 08:57 Multivitamin W/Minerals Tablet PO 1 tab DAILYWM BRYCE Administration Oxycodone HCl 5 mg 08/18/23 17:16 08/26/23 21:29 Oxycodone 5 Mg Tablet PO 5 mg Q4HR PRN Administration Moderate Pain (Level 4-6) Polyethylene Glycol 17 gm 08/22/23 09:00 08/27/23 09:02 Polyethylene Glycol 3350 17 Gm Packet PO Not Given DAILY [facility] Sodium Chloride 10 ml 08/18/23 13:53 08/22/23 21:58 Sodium Chloride Flush 0.9% 10 Ml Syringe IVP 10 ml PRN PRN Administration NEEDED PER PROVIDER ORDERS Sodium Chloride 10 ml 08/18/23 17:00 08/27/23 09:03 Sodium Chloride Flush 0.9% 10 Ml Syringe IVP 10 ml 0100,0900,1700 BRYCE Administration Tamsulosin HCl 0.4 mg 08/19/23 09:00 08/27/23 08:57 Tamsulosin 0.4 Mg Capsule PO 0.4 mg DAILY BRYCE Administration - Lab Result Fish Bone Diagrams: 08/23/23 05:43 08/23/23 05:43 Subjective - Subjective Patient Reports: Feeling Better (NAEON. No COVID-19 symptoms.), Resting Comfortably Objective Vital Signs: Vital Signs - 24 hr 08/26/23 08/27/23 08/27/23 16:00 00:20 08:00 Temperature 36.3 C L 36.5 C 36.5 C Heart Rate [ 83 92 85 Brachial] Respiratory 18 16 18 Rate Blood Pressure 127/72 122/62 124/69 [Right Brachial artery] O2 Saturation 95 95 97 Oxygen O2 Source Room air I&O (Last 24 Hrs): Intake and Output Totals x24h 08/25/23 08/26/23 08/27/23 23:59 23:59 23:59 Intake Total 1500 2422 340 Output Total 2400 755 725 Balance -900 1667 -385 General: Alert, Oriented x3, Cooperative, No acute distress Neuro: Alert, CN 2-12 Grossly Intact, Oriented Times 3 Cardiovascular: Regular rate, Normal S1, Normal S2, No murmurs Respiratory: Chest non-tender, No respiratory distress, Breath sounds nml Abdomen: Normal bowel sounds, Soft, No tenderness, No hepatospenomegaly, No masses - Results Results: Laboratory Results WBC 7.2 x10^3/uL (4.8-10.8) 08/23/23 05:43 RBC 3.98 10^6/uL (4.70-6.10) L 08/23/23 05:43 Hgb 11.8 g/dL (14.0-18.0) L 08/23/23 05:43 Hct 35.0 % (42.0-52.0) L 08/23/23 05:43 MCV 87.9 fL (80.0-94.0) 08/23/23 05:43 MCH 29.6 pg (27.0-31.0) 08/23/23 05:43 MCHC 33.7 g/dL (32.0-36.0) 08/23/23 05:43 RDW 12.5 % (12.0-15.0) 08/23/23 05:43 Plt Count 258 10^3/uL (130-450) 08/23/23 05:43 MPV 9.9 fL (7.4-11.4) 08/23/23 05:43 Neut # (Auto) 5.3 10^3/uL (1.5-6.6) 08/23/23 05:43 Lymph # (Auto) 0.8 10^3/uL (1.5-3.5) L 08/23/23 05:43 [place] # (Auto) 0.6 10^3/uL (0.0-1.0) 08/23/23 05:43 Eos # (Auto) 0.4 10^3/uL (0.0-0.7) 08/23/23 05:43 Baso # (Auto) 0.0 10^3/uL (0.0-0.1) 08/23/23 05:43 Absolute Nucleated RBC 0.00 x10^3/uL 08/23/23 05:43 Nucleated RBC % 0.0 /100WBC 08/23/23 05:43 Sodium 137 mmol/L (135-145) 08/23/23 05:43 Potassium 3.6 mmol/L (3.5-4.5) 08/23/23 05:43 Chloride 102 mmol/L (101-111) 08/23/23 05:43 Carbon Dioxide 28 mmol/L (21-32) 08/23/23 05:43 Anion Gap 7.0 (6-13) 08/23/23 05:43 BUN 11 mg/dL (6-20) 08/23/23 05:43 Creatinine 0.7 mg/dL (0.6-1.3) 08/23/23 05:43 Estimated GFR (MDRD) 108 (>89) 08/23/23 05:43 Glucose 157 mg/dL (74-104) H 08/23/23 05:43 POC Whole Bld Glucose 82 mg/dL (70 - 100) 08/27/23 11:59 Estimat Average Glucose 223 mg/dL (70-100) H 08/19/23 05:30 Hemoglobin A1c % 9.4 % (4.27-6.07) H 08/19/23 05:30 Lactic Acid 2.4 mmol/L (0.5-2.2) H 08/18/23 16:47 Calcium 8.6 mg/dL (8.5-10.3) 08/23/23 05:43 Magnesium 1.8 mg/dL (1.7-2.3) 08/23/23 05:43 Total Bilirubin 1.1 mg/dL (0.2-1.0) H 08/18/23 16:47 AST 12 IU/L (10-42) 08/18/23 16:47 ALT 16 IU/L (10-60) 08/18/23 16:47 Alkaline Phosphatase 79 IU/L (42-121) 08/18/23 16:47 B-Natriuretic Peptide 77 pg/mL (5-100) 08/19/23 05:30 Total Protein 6.9 g/dL (6.4-8.9) 08/18/23 16:47 Albumin 4.0 g/dL (3.2-5.5) 08/18/23 16:47 Globulin 2.9 g/dL (2.1-4.2) 08/18/23 16:47 Albumin/Globulin Ratio 1.4 (1.0-2.2) 08/18/23 16:47 Lipase < 10 U/L (11-82) L 08/18/23 11: Vitamin B12 450 pg/mL (180-914) 08/22/23 05:45 TSH 4.32 uIU/mL (0.34-5.60) 08/20/23 05:26 Urine Color DARK YELLOW 08/18/23 10:38 Urine Clarity CLOUDY (CLEAR) 08/18/23 10:38 Urine pH 6.0 PH (5.0-7.5) 08/18/23 10:38 Ur Specific [place] >=1.030 (1.002-1.030) H 08/18/23 10:38 Urine Protein 100 mg/dL (NEGATIVE) H 08/18/23 10:38 Urine Glucose (UA) 500 mg/dL (NEGATIVE) H 08/18/23 10:38 Urine Ketones 15 mg/dL (NEGATIVE) H 08/18/23 10:38 Urine Occult Blood LARGE (NEGATIVE) H 08/18/23 10:38 Urine Nitrite NEGATIVE (NEGATIVE) 08/18/23 10:38 Urine Bilirubin NEGATIVE (NEGATIVE) 08/18/23 10:38 Urine Urobilinogen 4 E.U./dL (NORMAL) H 08/18/23 10:38 Ur Leukocyte Esterase TRACE (NEGATIVE) H 08/18/23 10:38 Urine RBC 11-25 /HPF (0-5) H 08/18/23 10:38 Urine WBC 11-25 /HPF (0-3) H 08/18/23 10:38 Ur Squamous Epith Cells RARE Squamous (<= Few) 08/18/23 10:38 Amorphous Sediment Moderate /LPF 08/18/23 10:38 Urine Bacteria Moderate /HPF (None Seen) H 08/18/23 10:38 Ur Microscopic Review INDICATED 08/18/23 10:38 Urine Culture Comments INDICATED 08/18/23 10:38 SARS-CoV-2 (PCR) DETECTED A 08/26/23 00:30 - Procedures Procedures: Procedures CARPAL TUNNEL RELEASE (02/24/13) CATARAC PHACOEMULS/ASPIR (06/22/14) INSERT LENS AT CATAR EXT (06/22/14) INSPECTION OF LOWER INTESTINAL TRACT, ENDO (08/25/17) TOTAL KNEE REPLACEMENT (08/05/13) Sepsis Event Note (H) - Evaluation Current Stage of Sepsis: Ruled out Current Medications - Current Medications Current Medications: Active Medications Generic Name Dose Route Start Last Admin Trade Name Freq PRN Reason Stop Dose Admin Acetaminophen 650 mg 08/24/23 18:08 08/27/23 00:11 Acetaminophen 325 Mg Tablet PO 650 mg Q4HR PRN Administration Pain or Fever > 38C (100.4F) Amlodipine Besylate 10 mg 08/19/23 15:28 08/27/23 08:59 Amlodipine 5 Mg Tablet PO 10 mg DAILY BRYCE Administration Aspirin 81 mg 08/19/23 09:00 08/27/23 08:57 Aspirin Ec 81 Mg Tablet PO 81 mg DAILY BRYCE Administration Atorvastatin Calcium 40 mg 08/18/23 21:00 08/26/23 21:22 Atorvastatin 40 Mg Tablet PO 40 mg QPM BRYCE Administration Calcium Carbonate/Glycine 500 mg 08/19/23 18:38 Calcium Carbonate Chew 500 Mg Tablet PO Q6H PRN INDIGESTION Carboxymethylcellulose 1 drops 08/24/23 00:53 Carboxymethylcellulose Ophth Drops EACHEYE PRN PRN Dry Eye Cholecalciferol 50 mcg 08/20/23 17:00 08/27/23 08:59 Cholecalciferol 25 Mcg Tablet PO 50 mcg DAILY [facility] Administration Fluoxetine HCl 20 mg 08/19/23 09:00 08/27/23 08:58 Fluoxetine 10 Mg Capsule PO 20 mg DAILY BRYCE Administration Gabapentin 300 mg 08/18/23 21:00 08/26/23 21:22 Gabapentin 300 Mg Capsule PO 300 mg HS BRYCE Administration Insulin Human Lispro 1 - 9 unit 08/19/23 21:00 08/27/23 12:40 Insulin Lispro 300 Unit/3 Ml Pen SUBQ Not Given 0800,1200,1700,2100 [facility] Protocol Isosorbide Mononitrate 60 mg 08/19/23 09:00 08/27/23 09:00 Isosorbide Mononitrate Er 30 Mg Tablet PO 60 mg DAILY BRYCE Administration Lactobacillus Rhamnosus 1 cap 08/24/23 10:00 08/27/23 08:57 Lactobacillus Rhamnosus Gg Capsule PO 1 cap DAILY BRYCE Administration Levofloxacin 750 mg 08/24/23 10:00 08/27/23 08:58 Levofloxacin 250 Mg Tablet PO 750 mg DAILY [facility] Administration Levothyroxine Sodium 100 mcg 08/19/23 07:00 08/27/23 06:34 Levothyroxine 100 Mcg Tablet PO 100 mcg QDAC [facility] Administration Metformin HCl 1,000 mg 08/24/23 17:00 08/27/23 08:59 Metformin 500 Mg Tablet PO 1,000 mg BIDWM BRYCE Administration Metoprolol Succinate 50 mg 08/19/23 15:29 08/27/23 09:00 Metoprolol Succinate 50 Mg Tablet PO 50 mg DAILY BRYCE Administration Multivitamins/Minerals 1 tab 08/21/23 08:00 08/27/23 08:57 Multivitamin W/Minerals Tablet PO 1 tab DAILYWM [facility] Administration Oxycodone HCl 5 mg 08/18/23 17:16 08/26/23 21:29 Oxycodone 5 Mg Tablet PO 5 mg Q4HR PRN Administration Moderate Pain (Level 4-6) Pantoprazole Sodium 40 mg 08/24/23 11:06 Pantoprazole 40 Mg Tablet PO QDAC PRN Heartburn Polyethylene Glycol 17 gm 08/22/23 09:00 08/27/23 09:02 Polyethylene Glycol 3350 17 Gm Packet PO Not Given DAILY [facility] Sodium Chloride 10 ml 08/18/23 13:53 08/22/23 21:58 Sodium Chloride Flush 0.9% 10 Ml Syringe IVP 10 ml PRN PRN Administration NEEDED PER PROVIDER ORDERS Sodium Chloride 10 ml 08/18/23 17:00 08/27/23 09:03 Sodium Chloride Flush 0.9% 10 Ml Syringe IVP 10 ml 0100,0900,1700 BRYCE Administration Tamsulosin HCl 0.4 mg 08/19/23 09:00 08/27/23 08:57 Tamsulosin 0.4 Mg Capsule PO 0.4 mg DAILY BRYCE Administration Atorvastatin Calcium 40 mg PO DAILY PM 02/19/13 Levothyroxine Sodium [Synthroid] 100 mcg PO DAILY 02/19/13 Metoprolol Succinate [Toprol Xl] 50 mg PO DAILY PM 02/19/13 Tamsulosin [Flomax] 0.4 mg PO DAILY 08/22/17 Sildenafil Citrate [Viagra] 1 tab PO PRN PRN 09/23/17 Isosorbide Mononitrate [Isosorbide Mononitrate ER] 60 mg PO DAILY 11/13/20 Multivitamin 1 tab ORAL DAILY 11/13/20 Aspirin [Bern Aspirin] 81 mg PO DAILY 07/11/23 Gabapentin [Neurontin] 300 mg PO HS 07/11/23 Amlodipine Besylate [Norvasc] 2.5 mg PO DAILY 08/18/23 Fluoxetine HCl 60 mg PO DAILY 08/18/23 Mirabegron [Myrbetriq] 25 mg PO DAILY 08/19/23
[2023-08-27] MEDS: ATORVASTATIN 40 MG TABLET PO SCH (21:02)
[2023-08-27] MEDS: GABAPENTIN 300 MG CAPSULE PO SCH (21:02)
[2023-08-28] MEDS: SODIUM CHLORIDE FLUSH 0.9% 10 ML SYRINGE IVP SCH ×3 (00:30→17:02)
[2023-08-28] MEDS: LEVOTHYROXINE 100 MCG TABLET PO SCH (06:49)
[2023-08-28] MEDS: INSULIN LISPRO 300 UNIT/3 ML PEN SUBQ SCH ×4 (08:39→20:39)
[2023-08-28] MEDS: levoFLOXacin 250 MG TABLET PO SCH (08:40)
[2023-08-28] MEDS: MULTIVITAMIN W/MINERALS TABLET PO SCH (08:40)
[2023-08-28] MEDS: ASPIRIN EC 81 MG TABLET PO SCH (08:40)
[2023-08-28] MEDS: CHOLECALCIFEROL 25 MCG TABLET PO SCH (08:40)
[2023-08-28] MEDS: TAMSULOSIN 0.4 MG CAPSULE PO SCH (08:41)
[2023-08-28] MEDS: amLODIPine 5 MG TABLET PO SCH (08:41)
[2023-08-28] MEDS: METOPROLOL SUCCINATE 50 MG TABLET PO SCH (08:41)
[2023-08-28] MEDS: LACTOBACILLUS RHAMNOSUS GG CAPSULE PO SCH (08:41)
[2023-08-28] MEDS: ISOSORBIDE MONONITRATE ER 30 MG TABLET PO SCH (08:41)
[2023-08-28] MEDS: polyethylene glycoL 3350 17 GM PACKET PO SCH (08:41)
[2023-08-28] MEDS: FLUoxetine 10 MG CAPSULE PO SCH (08:41)
[2023-08-28] MEDS: metFORMIN 500 MG TABLET PO SCH ×2 (08:45→17:03)
--- NOTE | 2023-08-28 13:30 | PROVIDER PROGRESS NOTE ---
Assessment/Plan - Problem List (1) Infection due to Enterobacter cloacae Assessment/Plan: Assessment/Plan: --Continue PO Levofloxacin 750 mg daily for a 2 week course. Stop date is 09/01/23. (2) UTI (urinary tract infection) Assessment/Plan: --As above, continue levofloxacin based on most recent blood cultures. (3) Exposure to COVID-19 virus Assessment/Plan: --Returned positive for COVID-19 on 08/26. He will need to quarantine for 5 days in isolation prior to discharge to SNF. Patient denies any sx. Will monitor for respiratory distress. (4) General weakness Assessment/Plan: --Multifactorial: Due to UTI, hypoNa, deconditioning. He continues to work with PT/OT. He was suppose to discharge to SNF today, however COVID-19 returned positive. Anticipate 5 day isolation then discharge to SNF. (5) Chronic indwelling Albert catheter Assessment/Plan: --Continue Flomax. (6) CAD (coronary artery disease) Assessment/Plan: --Prior history of a CABG. Continue ASA, metoprolol, Atorvastatin, isosorbide. (7) HTN (hypertension) Assessment/Plan: --Continue home antihypertensives. (8) Newly diagnosed diabetes Assessment/Plan: --A1c this admission was 9.4. Poorly controlled. Metformin 1000 mg BID. SSI. - Current Meds Current Meds: Current Medications Generic Name Dose Route Start Last Admin Trade Name Freq PRN Reason Stop Dose Admin Acetaminophen 650 mg 08/24/23 18:08 08/27/23 00:11 Acetaminophen 325 Mg Tablet PO 650 mg Q4HR PRN Administration Pain or Fever > 38C (100.4F) Amlodipine Besylate 10 mg 08/19/23 15:28 08/28/23 08:41 Amlodipine 5 Mg Tablet PO 10 mg DAILY BRYCE Administration Aspirin 81 mg 08/19/23 09:00 08/28/23 08:40 Aspirin Ec 81 Mg Tablet PO 81 mg DAILY BRYCE Administration Atorvastatin Calcium 40 mg 08/18/23 21:00 08/27/23 21:02 Atorvastatin 40 Mg Tablet PO 40 mg QPM BRYCE Administration Cholecalciferol 50 mcg 08/20/23 17:00 08/28/23 08:40 Cholecalciferol 25 Mcg Tablet PO 50 mcg DAILY BRYCE Administration Fluoxetine HCl 20 mg 08/19/23 09:00 08/28/23 08:41 Fluoxetine 10 Mg Capsule PO 20 mg DAILY BRYCE Administration Gabapentin 300 mg 08/18/23 21:00 08/27/23 21:02 Gabapentin 300 Mg Capsule PO 300 mg HS BRYCE Administration Insulin Human Lispro 1 - 9 unit 08/19/23 21:00 08/28/23 12:44 Insulin Lispro 300 Unit/3 Ml Pen SUBQ Not Given 0800,1200,1700,2100 [facility] Protocol Isosorbide Mononitrate 60 mg 08/19/23 09:00 08/28/23 08:41 Isosorbide Mononitrate Er 30 Mg Tablet PO 60 mg DAILY BRYCE Administration Lactobacillus Rhamnosus 1 cap 08/24/23 10:00 08/28/23 08:41 Lactobacillus Rhamnosus Gg Capsule PO 1 cap DAILY BRYCE Administration Levofloxacin 750 mg 08/24/23 10:00 08/28/23 08:40 Levofloxacin 250 Mg Tablet PO 750 mg DAILY BRYCE Administration Levothyroxine Sodium 100 mcg 08/19/23 07:00 08/28/23 06:49 Levothyroxine 100 Mcg Tablet PO 100 mcg QDAC BRYCE Administration Metformin HCl 1,000 mg 08/24/23 17:00 08/28/23 08:45 Metformin 500 Mg Tablet PO 1,000 mg BIDWM BRYCE Administration Metoprolol Succinate 50 mg 08/19/23 15:29 08/28/23 08:41 Metoprolol Succinate 50 Mg Tablet PO 50 mg DAILY BRYCE Administration Multivitamins/Minerals 1 tab 08/21/23 08:00 08/28/23 08:40 Multivitamin W/Minerals Tablet PO 1 tab DAILYWM BRYCE Administration Oxycodone HCl 5 mg 08/18/23 17:16 08/26/23 21:29 Oxycodone 5 Mg Tablet PO 5 mg Q4HR PRN Administration Moderate Pain (Level 4-6) Polyethylene Glycol 17 gm 08/22/23 09:00 08/28/23 08:41 Polyethylene Glycol 3350 17 Gm Packet PO 17 gm DAILY BRYCE Administration Sodium Chloride 10 ml 08/18/23 13:53 08/22/23 21:58 Sodium Chloride Flush 0.9% 10 Ml Syringe IVP 10 ml PRN PRN Administration NEEDED PER PROVIDER ORDERS Sodium Chloride 10 ml 08/18/23 17:00 08/28/23 08:41 Sodium Chloride Flush 0.9% 10 Ml Syringe IVP 10 ml 0100,0900,1700 BRYCE Administration Tamsulosin HCl 0.4 mg 08/19/23 09:00 08/28/23 08:41 Tamsulosin 0.4 Mg Capsule PO 0.4 mg DAILY BRYCE Administration - Lab Result Fish Bone Diagrams: 08/23/23 05:43 08/23/23 05:43 Subjective - Subjective Patient Reports: Resting Comfortably, No Complaints Objective Vital Signs: Vital Signs - 24 hr 08/27/23 08/27/23 08/28/23 16:25 23:53 08:00 Temperature 36.3 C L 36.4 C L 36.4 C L Heart Rate [ 86 94 94 Brachial] Respiratory 20 18 18 Rate Blood Pressure 118/61 115/62 116/64 [Right Brachial artery] O2 Saturation 96 97 94 Oxygen O2 Source Room air I&O (Last 24 Hrs): Intake and Output Totals x24h 08/26/23 08/27/23 08/28/23 23:59 23:59 23:59 Intake Total 2422 660 240 Output Total 755 1425 1300 Balance 1667 -765 -1060 General: Alert, Oriented x3, Cooperative, No acute distress Neuro: Alert, CN 2-12 Grossly Intact, Oriented Times 3 Cardiovascular: Regular rate, Normal S1, Normal S2, No murmurs Respiratory: Chest non-tender, No respiratory distress, Breath sounds nml Abdomen: Normal bowel sounds, Soft, No tenderness, No hepatospenomegaly, No masses - Results Results: Laboratory Results WBC 7.2 x10^3/uL (4.8-10.8) 08/23/23 05:43 RBC 3.98 10^6/uL (4.70-6.10) L 08/23/23 05:43 Hgb 11.8 g/dL (14.0-18.0) L 08/23/23 05:43 Hct 35.0 % (42.0-52.0) L 08/23/23 05:43 MCV 87.9 fL (80.0-94.0) 08/23/23 05:43 MCH 29.6 pg (27.0-31.0) 08/23/23 05:43 MCHC 33.7 g/dL (32.0-36.0) 08/23/23 05:43 RDW 12.5 % (12.0-15.0) 08/23/23 05:43 Plt Count 258 10^3/uL (130-450) 08/23/23 05:43 MPV 9.9 fL (7.4-11.4) 08/23/23 05:43 Neut # (Auto) 5.3 10^3/uL (1.5-6.6) 08/23/23 05:43 Lymph # (Auto) 0.8 10^3/uL (1.5-3.5) L 08/23/23 05:43 [place] # (Auto) 0.6 10^3/uL (0.0-1.0) 08/23/23 05:43 Eos # (Auto) 0.4 10^3/uL (0.0-0.7) 08/23/23 05:43 Baso # (Auto) 0.0 10^3/uL (0.0-0.1) 08/23/23 05:43 Absolute Nucleated RBC 0.00 x10^3/uL 08/23/23 05:43 Nucleated RBC % 0.0 /100WBC 08/23/23 05:43 Sodium 137 mmol/L (135-145) 08/23/23 05:43 Potassium 3.6 mmol/L (3.5-4.5) 08/23/23 05:43 Chloride 102 mmol/L (101-111) 08/23/23 05:43 Carbon Dioxide 28 mmol/L (21-32) 08/23/23 05:43 Anion Gap 7.0 (6-13) 08/23/23 05:43 BUN 11 mg/dL (6-20) 08/23/23 05:43 Creatinine 0.7 mg/dL (0.6-1.3) 08/23/23 05:43 Estimated GFR (MDRD) 108 (>89) 08/23/23 05:43 Glucose 157 mg/dL (74-104) H 08/23/23 05:43 POC Whole Bld Glucose 117 mg/dL (70 - 100) H 08/28/23 12:10 Estimat Average Glucose 223 mg/dL (70-100) H 08/19/23 05:30 Hemoglobin A1c % 9.4 % (4.27-6.07) H 08/19/23 05:30 Lactic Acid 2.4 mmol/L (0.5-2.2) H 08/18/23 16:47 Calcium 8.6 mg/dL (8.5-10.3) 08/23/23 05:43 Magnesium 1.8 mg/dL (1.7-2.3) 08/23/23 05:43 Total Bilirubin 1.1 mg/dL (0.2-1.0) H 08/18/23 16:47 AST 12 IU/L (10-42) 08/18/23 16:47 ALT 16 IU/L (10-60) 08/18/23 16:47 Alkaline Phosphatase 79 IU/L (42-121) 08/18/23 16:47 B-Natriuretic Peptide 77 pg/mL (5-100) 08/19/23 05:30 Total Protein 6.9 g/dL (6.4-8.9) 08/18/23 16:47 Albumin 4.0 g/dL (3.2-5.5) 08/18/23 16:47 Globulin 2.9 g/dL (2.1-4.2) 08/18/23 16:47 Albumin/Globulin Ratio 1.4 (1.0-2.2) 08/18/23 16:47 Lipase < 10 U/L (11-82) L 08/18/23 11:22 Vitamin B12 450 pg/mL (180-914) 08/22/23 05:45 TSH 4.32 uIU/mL (0.34-5.60) 08/20/23 05:26 Urine Color DARK YELLOW 08/18/23 10:38 Urine Clarity CLOUDY (CLEAR) 08/18/23 10:38 Urine pH 6.0 PH (5.0-7.5) 08/18/23 10:38 Ur Specific [place] >=1.030 (1.002-1.030) H 08/18/23 10:38 Urine Protein 100 mg/dL (NEGATIVE) H 08/18/23 10:38 Urine Glucose (UA) 500 mg/dL (NEGATIVE) H 08/18/23 10:38 Urine Ketones 15 mg/dL (NEGATIVE) H 08/18/23 10:38 Urine Occult Blood LARGE (NEGATIVE) H 08/18/23 10:38 Urine Nitrite NEGATIVE (NEGATIVE) 08/18/23 10:38 Urine Bilirubin NEGATIVE (NEGATIVE) 08/18/23 10:38 Urine Urobilinogen 4 E.U./dL (NORMAL) H 08/18/23 10:38 Ur Leukocyte Esterase TRACE (NEGATIVE) H 08/18/23 10:38 Urine RBC 11-25 /HPF (0-5) H 08/18/23 10:38 Urine WBC 11-25 /HPF (0-3) H 08/18/23 10:38 Ur Squamous Epith Cells RARE Squamous (<= Few) 08/18/23 10:38 Amorphous Sediment Moderate /LPF 08/18/23 10:38 Urine Bacteria Moderate /HPF (None Seen) H 08/18/23 10:38 Ur Microscopic Review INDICATED 08/18/23 10:38 Urine Culture Comments INDICATED 08/18/23 10:38 SARS-CoV-2 (PCR) DETECTED A 08/26/23 00:30 - Procedures Procedures: Procedures CARPAL TUNNEL RELEASE (02/24/13) CATARAC PHACOEMULS/ASPIR (06/22/14) INSERT LENS AT CATAR EXT (06/22/14) INSPECTION OF LOWER INTESTINAL TRACT, ENDO (08/25/17) TOTAL KNEE REPLACEMENT (08/05/13) Sepsis Event Note (H) - Evaluation Current Stage of Sepsis: Ruled out Current Medications - Current Medications Current Medications: Active Medications Generic Name Dose Route Start Last Admin Trade Name Freq PRN Reason Stop Dose Admin Acetaminophen 650 mg 08/24/23 18:08 08/27/23 00:11 Acetaminophen 325 Mg Tablet PO 650 mg Q4HR PRN Administration Pain or Fever > 38C (100.4F) Amlodipine Besylate 10 mg 08/19/23 15:28 08/28/23 08:41 Amlodipine 5 Mg Tablet PO 10 mg DAILY BRYCE Administration Aspirin 81 mg 08/19/23 09:00 08/28/23 08:40 Aspirin Ec 81 Mg Tablet PO 81 mg DAILY BRYCE Administration Atorvastatin Calcium 40 mg 08/18/23 21:00 08/27/23 21:02 Atorvastatin 40 Mg Tablet PO 40 mg QPM BRYCE Administration Calcium Carbonate/Glycine 500 mg 08/19/23 18:38 Calcium Carbonate Chew 500 Mg Tablet PO Q6H PRN INDIGESTION Carboxymethylcellulose 1 drops 08/24/23 00:53 Carboxymethylcellulose Ophth Drops EACHEYE PRN PRN Dry Eye Cholecalciferol 50 mcg 08/20/23 17:00 08/28/23 08:40 Cholecalciferol 25 Mcg Tablet PO 50 mcg DAILY BRYCE Administration Fluoxetine HCl 20 mg 08/19/23 09:00 08/28/23 08:41 Fluoxetine 10 Mg Capsule PO 20 mg DAILY BRYCE Administration Gabapentin 300 mg 08/18/23 21:00 08/27/23 21:02 Gabapentin 300 Mg Capsule PO 300 mg HS BRYCE Administration Insulin Human Lispro 1 - 9 unit 08/19/23 21:00 08/28/23 12:44 Insulin Lispro 300 Unit/3 Ml Pen SUBQ Not Given 0800,1200,1700,2100 [facility] Protocol Isosorbide Mononitrate 60 mg 08/19/23 09:00 08/28/23 08:41 Isosorbide Mononitrate Er 30 Mg Tablet PO 60 mg DAILY BRYCE Administration Lactobacillus Rhamnosus 1 cap 08/24/23 10:00 08/28/23 08:41 Lactobacillus Rhamnosus Gg Capsule PO 1 cap DAILY BRYCE Administration Levofloxacin 750 mg 08/24/23 10:00 08/28/23 08:40 Levofloxacin 250 Mg Tablet PO 750 mg DAILY BRYCE Administration Levothyroxine Sodium 100 mcg 08/19/23 07:00 08/28/23 06:49 Levothyroxine 100 Mcg Tablet PO 100 mcg QDAC [facility] Administration Metformin HCl 1,000 mg 08/24/23 17:00 08/28/23 08:45 Metformin 500 Mg Tablet PO 1,000 mg BIDWM [facility] Administration Metoprolol Succinate 50 mg 08/19/23 15:29 08/28/23 08:41 Metoprolol Succinate 50 Mg Tablet PO 50 mg DAILY BRYCE Administration Multivitamins/Minerals 1 tab 08/21/23 08:00 08/28/23 08:40 Multivitamin W/Minerals Tablet PO 1 tab DAILYWM [facility] Administration Oxycodone HCl 5 mg 08/18/23 17:16 08/26/23 21:29 Oxycodone 5 Mg Tablet PO 5 mg Q4HR PRN Administration Moderate Pain (Level 4-6) Pantoprazole Sodium 40 mg 08/24/23 11:06 Pantoprazole 40 Mg Tablet PO QDAC PRN Heartburn Polyethylene Glycol 17 gm 08/22/23 09:00 08/28/23 08:41 Polyethylene Glycol 3350 17 Gm Packet PO 17 gm DAILY BRYCE Administration Sodium Chloride 10 ml 08/18/23 13:53 08/22/23 21:58 Sodium Chloride Flush 0.9% 10 Ml Syringe IVP 10 ml PRN PRN Administration NEEDED PER PROVIDER ORDERS Sodium Chloride 10 ml 08/18/23 17:00 08/28/23 08:41 Sodium Chloride Flush 0.9% 10 Ml Syringe IVP 10 ml 0100,0900,1700 [facility] Administration Tamsulosin HCl 0.4 mg 08/19/23 09:00 08/28/23 08:41 Tamsulosin 0.4 Mg Capsule PO 0.4 mg DAILY [facility] Administration Atorvastatin Calcium 40 mg PO DAILY PM 02/19/13 Levothyroxine Sodium [Synthroid] 100 mcg PO DAILY 02/19/13 Metoprolol Succinate [Toprol Xl] 50 mg PO DAILY PM 02/19/13 Tamsulosin [Flomax] 0.4 mg PO DAILY 08/22/17 Sildenafil Citrate [Viagra] 1 tab PO PRN PRN 09/23/17 Isosorbide Mononitrate [Isosorbide Mononitrate ER] 60 mg PO DAILY 11/13/20 Multivitamin 1 tab ORAL DAILY 11/13/20 Aspirin [[place] Aspirin] 81 mg PO DAILY 07/11/23 Gabapentin [Neurontin] 300 mg PO HS 07/11/23 Amlodipine Besylate [Norvasc] 2.5 mg PO DAILY 08/18/23 Fluoxetine HCl 60 mg PO DAILY 08/18/23 Mirabegron [Myrbetriq] 25 mg PO DAILY 08/19/23
[2023-08-28] MEDS: ATORVASTATIN 40 MG TABLET PO SCH (20:48)
[2023-08-28] MEDS: GABAPENTIN 300 MG CAPSULE PO SCH (20:48)
[2023-08-29] MEDS: SODIUM CHLORIDE FLUSH 0.9% 10 ML SYRINGE IVP SCH ×3 (02:00→17:42)
[2023-08-29] MEDS: LEVOTHYROXINE 100 MCG TABLET PO SCH (06:36)
[2023-08-29] MEDS: CHOLECALCIFEROL 25 MCG TABLET PO SCH (08:24)
[2023-08-29] MEDS: ASPIRIN EC 81 MG TABLET PO SCH (08:24)
[2023-08-29] MEDS: FLUoxetine 10 MG CAPSULE PO SCH (08:24)
[2023-08-29] MEDS: METOPROLOL SUCCINATE 50 MG TABLET PO SCH (08:24)
[2023-08-29] MEDS: MULTIVITAMIN W/MINERALS TABLET PO SCH (08:24)
[2023-08-29] MEDS: metFORMIN 500 MG TABLET PO SCH ×2 (08:25→17:38)
[2023-08-29] MEDS: amLODIPine 5 MG TABLET PO SCH (08:26)
[2023-08-29] MEDS: TAMSULOSIN 0.4 MG CAPSULE PO SCH (08:26)
[2023-08-29] MEDS: LACTOBACILLUS RHAMNOSUS GG CAPSULE PO SCH (08:26)
[2023-08-29] MEDS: ISOSORBIDE MONONITRATE ER 30 MG TABLET PO SCH (08:27)
[2023-08-29] MEDS: levoFLOXacin 250 MG TABLET PO SCH (08:27)
[2023-08-29] MEDS: INSULIN LISPRO 300 UNIT/3 ML PEN SUBQ SCH ×4 (08:40→21:30)
[2023-08-29] MEDS: polyethylene glycoL 3350 17 GM PACKET PO SCH (08:41)
--- NOTE | 2023-08-29 12:27 | PROVIDER PROGRESS NOTE ---
Assessment/Plan - Problem List (1) Infection due to Enterobacter cloacae Assessment/Plan: (1) Infection due to Enterobacter cloacae Assessment/Plan: Assessment/Plan: --Continue PO Levofloxacin 750 mg daily for a 2 week course. Stop date is 09/01/23. (2) UTI (urinary tract infection) Assessment/Plan: --As above, continue levofloxacin based on most recent blood cultures. (3) Exposure to COVID-19 virus Assessment/Plan: --Returned positive for COVID-19 on 08/26. He will need to quarantine for 5 days in isolation prior to discharge to SNF. Patient denies any sx. Will monitor for respiratory distress. (4) General weakness Assessment/Plan: --Multifactorial: Due to UTI, hypoNa, deconditioning. He continues to work with PT/OT. He was suppose to discharge to SNF today, however COVID-19 returned positive. Anticipate 5 day isolation then discharge to SNF. (5) Chronic indwelling Albert catheter Assessment/Plan: --Continue Flomax. (6) CAD (coronary artery disease) Assessment/Plan: --Prior history of a CABG. Continue ASA, metoprolol, Atorvastatin, isosorbide. (7) HTN (hypertension) Assessment/Plan: --Continue home antihypertensives. (8) Newly diagnosed diabetes Assessment/Plan: --A1c this admission was 9.4. Poorly controlled. Metformin 1000 mg BID. SSI. - Current Meds Current Meds: Current Medications Generic Name Dose Route Start Last Admin Trade Name Freq PRN Reason Stop Dose Admin Acetaminophen 650 mg 08/24/23 18:08 08/27/23 00:11 Acetaminophen 325 Mg Tablet PO 650 mg Q4HR PRN Administration Pain or Fever > 38C (100.4F) Amlodipine Besylate 10 mg 08/19/23 15:28 08/29/23 08:26 Amlodipine 5 Mg Tablet PO 10 mg DAILY BRYCE Administration Aspirin 81 mg 08/19/23 09:00 08/29/23 08:24 Aspirin Ec 81 Mg Tablet PO 81 mg DAILY BRYCE Administration Atorvastatin Calcium 40 mg 08/18/23 21:00 08/28/23 20:48 Atorvastatin 40 Mg Tablet PO 40 mg QPM BRYCE Administration Cholecalciferol 50 mcg 08/20/23 17:00 08/29/23 08:24 Cholecalciferol 25 Mcg Tablet PO 50 mcg DAILY BRYCE Administration Fluoxetine HCl 20 mg 08/19/23 09:00 08/29/23 08:24 Fluoxetine 10 Mg Capsule PO 20 mg DAILY BRYCE Administration Gabapentin 300 mg 08/18/23 21:00 08/28/23 20:48 Gabapentin 300 Mg Capsule PO 300 mg HS BRYCE Administration Insulin Human Lispro 1 - 9 unit 08/19/23 21:00 08/29/23 12:15 Insulin Lispro 300 Unit/3 Ml Pen SUBQ Not Given 0800,1200,1700,2100 [facility] Protocol Isosorbide Mononitrate 60 mg 08/19/23 09:00 08/29/23 08:27 Isosorbide Mononitrate Er 30 Mg Tablet PO 60 mg DAILY BRYCE Administration Lactobacillus Rhamnosus 1 cap 08/24/23 10:00 08/29/23 08:26 Lactobacillus Rhamnosus Gg Capsule PO 1 cap DAILY BRYCE Administration Levofloxacin 750 mg 08/24/23 10:00 08/29/23 08:27 Levofloxacin 250 Mg Tablet PO 750 mg DAILY BRYCE Administration Levothyroxine Sodium 100 mcg 08/19/23 07:00 08/29/23 06:36 Levothyroxine 100 Mcg Tablet PO 100 mcg QDAC BRYCE Administration Metformin HCl 1,000 mg 08/24/23 17:00 08/29/23 08:25 Metformin 500 Mg Tablet PO 1,000 mg BIDWM BRYCE Administration Metoprolol Succinate 50 mg 08/19/23 15:29 08/29/23 08:24 Metoprolol Succinate 50 Mg Tablet PO 50 mg DAILY BRYCE Administration Multivitamins/Minerals 1 tab 08/21/23 08:00 08/29/23 08:24 Multivitamin W/Minerals Tablet PO 1 tab DAILYWM BRYCE Administration Oxycodone HCl 5 mg 08/18/23 17:16 08/26/23 21:29 Oxycodone 5 Mg Tablet PO 5 mg Q4HR PRN Administration Moderate Pain (Level 4-6) Polyethylene Glycol 17 gm 08/22/23 09:00 08/29/23 08:41 Polyethylene Glycol 3350 17 Gm Packet PO Not Given DAILY [facility] Sodium Chloride 10 ml 08/18/23 13:53 08/22/23 21:58 Sodium Chloride Flush 0.9% 10 Ml Syringe IVP 10 ml PRN PRN Administration NEEDED PER PROVIDER ORDERS Sodium Chloride 10 ml 08/18/23 17:00 08/29/23 08:24 Sodium Chloride Flush 0.9% 10 Ml Syringe IVP 10 ml 0100,0900,1700 BRYCE Administration Tamsulosin HCl 0.4 mg 08/19/23 09:00 08/29/23 08:26 Tamsulosin 0.4 Mg Capsule PO 0.4 mg DAILY BRYCE Administration - Lab Result Fish Bone Diagrams: 08/23/23 05:43 08/23/23 05:43 - Additional Planning My Orders: My Active Orders 08/29/23 10:37 Albert Continuation and Care [RC] ONCE 08/31/23 10:37 Albert Discontinuation [RC] ONCE Albert Insertion [RC] QSHIFT Subjective - Subjective Patient Reports: Resting Comfortably, No Complaints Objective Vital Signs: Vital Signs - 24 hr 08/28/23 08/28/23 08/29/23 15:58 18:10 00:15 Temperature 36.4 C L 36.4 C L Heart Rate [ 104 H 97 95 Brachial] Respiratory 16 20 Rate Blood Pressure 93/65 131/78 H 114/61 [Right Brachial artery] O2 Saturation 95 97 08/29/23 08:00 Temperature 36.3 C L Heart Rate [ 92 Brachial] Respiratory 18 Rate Blood Pressure 138/55 H [Right Brachial artery] O2 Saturation 93 Oxygen O2 Source Room air I&O (Last 24 Hrs): Intake and Output Totals x24h 08/27/23 08/28/23 08/29/23 23:59 23:59 23:59 Intake Total 660 360 120 Output Total 1425 1800 350 Balance -765 -1440 -230 General: Alert, Oriented x3, Cooperative, No acute distress Neuro: Alert, CN 2-12 Grossly Intact, Oriented Times 3 Cardiovascular: Regular rate, Normal S1, Normal S2, No murmurs Respiratory: Chest non-tender, No respiratory distress, Breath sounds nml Abdomen: Normal bowel sounds, Soft, No tenderness, No hepatospenomegaly, No masses Extremities: No clubbing, No cyanosis, No edema, Normal pulses, No tenderness/swelling - Results Results: Laboratory Results WBC 7.2 x10^3/uL (4.8-10.8) 08/23/23 05:43 RBC 3.98 10^6/uL (4.70-6.10) L 08/23/23 05:43 Hgb 11.8 g/dL (14.0-18.0) L 08/23/23 05:43 Hct 35.0 % (42.0-52.0) L 08/23/23 05:43 MCV 87.9 fL (80.0-94.0) 08/23/23 05:43 MCH 29.6 pg (27.0-31.0) 08/23/23 05:43 MCHC 33.7 g/dL (32.0-36.0) 08/23/23 05:43 RDW 12.5 % (12.0-15.0) 08/23/23 05:43 Plt Count 258 10^3/uL (130-450) 08/23/23 05:43 MPV 9.9 fL (7.4-11.4) 08/23/23 05:43 Neut # (Auto) 5.3 10^3/uL (1.5-6.6) 08/23/23 05:43 Lymph # (Auto) 0.8 10^3/uL (1.5-3.5) L 08/23/23 05:43 [place] # (Auto) 0.6 10^3/uL (0.0-1.0) 08/23/23 05:43 Eos # (Auto) 0.4 10^3/uL (0.0-0.7) 08/23/23 05:43 Baso # (Auto) 0.0 10^3/uL (0.0-0.1) 08/23/23 05:43 Absolute Nucleated RBC 0.00 x10^3/uL 08/23/23 05:43 Nucleated RBC % 0.0 /100WBC 08/23/23 05:43 Sodium 137 mmol/L (135-145) 08/23/23 05:43 Potassium 3.6 mmol/L (3.5-4.5) 08/23/23 05:43 Chloride 102 mmol/L (101-111) 08/23/23 05:43 Carbon Dioxide 28 mmol/L (21-32) 08/23/23 05:43 Anion Gap 7.0 (6-13) 08/23/23 05:43 BUN 11 mg/dL (6-20) 08/23/23 05:43 Creatinine 0.7 mg/dL (0.6-1.3) 08/23/23 05:43 Estimated GFR (MDRD) 108 (>89) 08/23/23 05:43 Glucose 157 mg/dL (74-104) H 08/23/23 05:43 POC Whole Bld Glucose 134 mg/dL (70 - 100) H 08/29/23 11:33 Estimat Average Glucose 223 mg/dL (70-100) H 08/19/23 05:30 Hemoglobin A1c % 9.4 % (4.27-6.07) H 08/19/23 05:30 Lactic Acid 2.4 mmol/L (0.5-2.2) H 08/18/23 16:47 Calcium 8.6 mg/dL (8.5-10.3) 08/23/23 05:43 Magnesium 1.8 mg/dL (1.7-2.3) 08/23/23 05:43 Total Bilirubin 1.1 mg/dL (0.2-1.0) H 08/18/23 16:47 AST 12 IU/L (10-42) 08/18/23 16:47 ALT 16 IU/L (10-60) 08/18/23 16:47 Alkaline Phosphatase 79 IU/L (42-121) 08/18/23 16:47 B-Natriuretic Peptide 77 pg/mL (5-100) 08/19/23 05:30 Total Protein 6.9 g/dL (6.4-8.9) 08/18/23 16:47 Albumin 4.0 g/dL (3.2-5.5) 08/18/23 16:47 Globulin 2.9 g/dL (2.1-4.2) 08/18/23 16:47 Albumin/Globulin Ratio 1.4 (1.0-2.2) 08/18/23 16:47 Lipase < 10 U/L (11-82) L 08/18/23 11:22 Vitamin B12 450 pg/mL (180-914) 08/22/23 05:45 TSH 4.32 uIU/mL (0.34-5.60) 08/20/23 05:26 Urine Color DARK YELLOW 08/18/23 10:38 Urine Clarity CLOUDY (CLEAR) 08/18/23 10:38 Urine pH 6.0 PH (5.0-7.5) 08/18/23 10:38 Ur Specific [place] >=1.030 (1.002-1.030) H 08/18/23 10:38 Urine Protein 100 mg/dL (NEGATIVE) H 08/18/23 10:38 Urine Glucose (UA) 500 mg/dL (NEGATIVE) H 08/18/23 10:38 Urine Ketones 15 mg/dL (NEGATIVE) H 08/18/23 10:38 Urine Occult Blood LARGE (NEGATIVE) H 08/18/23 10:38 Urine Nitrite NEGATIVE (NEGATIVE) 08/18/23 10:38 Urine Bilirubin NEGATIVE (NEGATIVE) 08/18/23 10:38 Urine Urobilinogen 4 E.U./dL (NORMAL) H 08/18/23 10:38 Ur Leukocyte Esterase TRACE (NEGATIVE) H 08/18/23 10:38 Urine RBC 11-25 /HPF (0-5) H 08/18/23 10:38 Urine WBC 11-25 /HPF (0-3) H 08/18/23 10:38 Ur Squamous Epith Cells RARE Squamous (<= Few) 08/18/23 10:38 Amorphous Sediment Moderate /LPF 08/18/23 10:38 Urine Bacteria Moderate /HPF (None Seen) H 08/18/23 10:38 Ur Microscopic Review INDICATED 08/18/23 10:38 Urine Culture Comments INDICATED 08/18/23 10:38 SARS-CoV-2 (PCR) DETECTED A 08/26/23 00:30 - Procedures Procedures: Procedures CARPAL TUNNEL RELEASE (02/24/13) CATARAC PHACOEMULS/ASPIR (06/22/14) INSERT LENS AT CATAR EXT (06/22/14) INSPECTION OF LOWER INTESTINAL TRACT, ENDO (08/25/17) TOTAL KNEE REPLACEMENT (08/05/13) Sepsis Event Note (H) - Evaluation Current Stage of Sepsis: Ruled out Current Medications - Current Medications Current Medications: Active Medications Generic Name Dose Route Start Last Admin Trade Name Freq PRN Reason Stop Dose Admin Acetaminophen 650 mg 08/24/23 18:08 08/27/23 00:11 Acetaminophen 325 Mg Tablet PO 650 mg Q4HR PRN Administration Pain or Fever > 38C (100.4F) Amlodipine Besylate 10 mg 08/19/23 15:28 08/29/23 08:26 Amlodipine 5 Mg Tablet PO 10 mg DAILY BRYCE Administration Aspirin 81 mg 08/19/23 09:00 08/29/23 08:24 Aspirin Ec 81 Mg Tablet PO 81 mg DAILY BRYCE Administration Atorvastatin Calcium 40 mg 08/18/23 21:00 08/28/23 20:48 Atorvastatin 40 Mg Tablet PO 40 mg QPM BRYCE Administration Calcium Carbonate/Glycine 500 mg 08/19/23 18:38 Calcium Carbonate Chew 500 Mg Tablet PO Q6H PRN INDIGESTION Carboxymethylcellulose 1 drops 08/24/23 00:53 Carboxymethylcellulose Ophth Drops EACHEYE PRN PRN Dry Eye Cholecalciferol 50 mcg 08/20/23 17:00 08/29/23 08:24 Cholecalciferol 25 Mcg Tablet PO 50 mcg DAILY BRYCE Administration Fluoxetine HCl 20 mg 08/19/23 09:00 08/29/23 08:24 Fluoxetine 10 Mg Capsule PO 20 mg DAILY BRYCE Administration Gabapentin 300 mg 08/18/23 21:00 08/28/23 20:48 Gabapentin 300 Mg Capsule PO 300 mg HS BRYCE Administration Insulin Human Lispro 1 - 9 unit 08/19/23 21:00 08/29/23 12:15 Insulin Lispro 300 Unit/3 Ml Pen SUBQ Not Given 0800,1200,1700,2100 [facility] Protocol Isosorbide Mononitrate 60 mg 08/19/23 09:00 08/29/23 08:27 Isosorbide Mononitrate Er 30 Mg Tablet PO 60 mg DAILY BRYCE Administration Lactobacillus Rhamnosus 1 cap 08/24/23 10:00 08/29/23 08:26 Lactobacillus Rhamnosus Gg Capsule PO 1 cap DAILY BRYCE Administration Levofloxacin 750 mg 08/24/23 10:00 08/29/23 08:27 Levofloxacin 250 Mg Tablet PO 750 mg DAILY BRYCE Administration Levothyroxine Sodium 100 mcg 08/19/23 07:00 08/29/23 06:36 Levothyroxine 100 Mcg Tablet PO 100 mcg QDAC BRYCE Administration Metformin HCl 1,000 mg 08/24/23 17:00 08/29/23 08:25 Metformin 500 Mg Tablet PO 1,000 mg BIDWM BRYCE Administration Metoprolol Succinate 50 mg 08/19/23 15:29 08/29/23 08:24 Metoprolol Succinate 50 Mg Tablet PO 50 mg DAILY BRYCE Administration Multivitamins/Minerals 1 tab 08/21/23 08:00 08/29/23 08:24 Multivitamin W/Minerals Tablet PO 1 tab DAILYWM BRYCE Administration Oxycodone HCl 5 mg 08/18/23 17:16 08/26/23 21:29 Oxycodone 5 Mg Tablet PO 5 mg Q4HR PRN Administration Moderate Pain (Level 4-6) Pantoprazole Sodium 40 mg 08/24/23 11:06 Pantoprazole 40 Mg Tablet PO QDAC PRN Heartburn Polyethylene Glycol 17 gm 08/22/23 09:00 08/29/23 08:41 Polyethylene Glycol 3350 17 Gm Packet PO Not Given DAILY BRYCE Sodium Chloride 10 ml 08/18/23 13:53 08/22/23 21:58 Sodium Chloride Flush 0.9% 10 Ml Syringe IVP 10 ml PRN PRN Administration NEEDED PER PROVIDER ORDERS Sodium Chloride 10 ml 08/18/23 17:00 08/29/23 08:24 Sodium Chloride Flush 0.9% 10 Ml Syringe IVP 10 ml 0100,0900,1700 BRYCE Administration Tamsulosin HCl 0.4 mg 08/19/23 09:00 08/29/23 08:26 Tamsulosin 0.4 Mg Capsule PO 0.4 mg DAILY BRYCE Administration Atorvastatin Calcium 40 mg PO DAILY PM 02/19/13 Levothyroxine Sodium [Synthroid] 100 mcg PO DAILY 02/19/13 Metoprolol Succinate [Toprol Xl] 50 mg PO DAILY PM 02/19/13 Tamsulosin [Flomax] 0.4 mg PO DAILY 08/22/17 Sildenafil Citrate [Viagra] 1 tab PO PRN PRN 09/23/17 Isosorbide Mononitrate [Isosorbide Mononitrate ER] 60 mg PO DAILY 11/13/20 Multivitamin 1 tab ORAL DAILY 11/13/20 Aspirin [[place] Aspirin] 81 mg PO DAILY 07/11/23 Gabapentin [Neurontin] 300 mg PO HS 07/11/23 Amlodipine Besylate [Norvasc] 2.5 mg PO DAILY 08/18/23 Fluoxetine HCl 60 mg PO DAILY 08/18/23 Mirabegron [Myrbetriq] 25 mg PO DAILY 08/19/23
[2023-08-29] MEDS: ATORVASTATIN 40 MG TABLET PO SCH (21:39)
[2023-08-29] MEDS: GABAPENTIN 300 MG CAPSULE PO SCH (21:39)
[2023-08-30] MEDS: SODIUM CHLORIDE FLUSH 0.9% 10 ML SYRINGE IVP SCH ×4 (00:12→23:49)
[2023-08-30] MEDS: LEVOTHYROXINE 100 MCG TABLET PO SCH (06:22)
[2023-08-30] MEDS: polyethylene glycoL 3350 17 GM PACKET PO SCH (08:02)
[2023-08-30] MEDS: LACTOBACILLUS RHAMNOSUS GG CAPSULE PO SCH (08:08)
[2023-08-30] MEDS: levoFLOXacin 250 MG TABLET PO SCH (08:08)
[2023-08-30] MEDS: metFORMIN 500 MG TABLET PO SCH ×2 (08:09→17:47)
[2023-08-30] MEDS: ISOSORBIDE MONONITRATE ER 30 MG TABLET PO SCH (08:09)
[2023-08-30] MEDS: FLUoxetine 10 MG CAPSULE PO SCH (08:11)
[2023-08-30] MEDS: MULTIVITAMIN W/MINERALS TABLET PO SCH (08:11)
[2023-08-30] MEDS: amLODIPine 5 MG TABLET PO SCH (08:12)
[2023-08-30] MEDS: TAMSULOSIN 0.4 MG CAPSULE PO SCH (08:13)
[2023-08-30] MEDS: ASPIRIN EC 81 MG TABLET PO SCH (08:13)
[2023-08-30] MEDS: INSULIN LISPRO 300 UNIT/3 ML PEN SUBQ SCH ×4 (08:21→21:39)
[2023-08-30] MEDS: METOPROLOL SUCCINATE 50 MG TABLET PO SCH (08:22)
[2023-08-30] MEDS: CHOLECALCIFEROL 25 MCG TABLET PO SCH (08:24)
--- NOTE | 2023-08-30 14:51 | PROVIDER PROGRESS NOTE ---
Assessment/Plan - Problem List (1) Infection due to Enterobacter cloacae Assessment/Plan: (1) Infection due to Enterobacter cloacae Assessment/Plan: Assessment/Plan: --Continue PO Levofloxacin 750 mg daily for a 2 week course. Stop date is 09/01/23. (2) UTI (urinary tract infection) Assessment/Plan: --As above, continue levofloxacin based on most recent blood cultures. (3) Exposure to COVID-19 virus Assessment/Plan: --Returned positive for COVID-19 on 08/26. He will need to quarantine for 5 days in isolation prior to discharge to SNF. Patient denies any sx. Will monitor for respiratory distress. --Last day of isolation is 08/31. (4) General weakness Assessment/Plan: --Multifactorial: Due to UTI, hypoNa, deconditioning. He continues to work with PT/OT. He was suppose to discharge to SNF today, however COVID-19 returned positive. Anticipate 5 day isolation then discharge to SNF. (5) Chronic indwelling Albert catheter Assessment/Plan: --Continue Flomax. (6) CAD (coronary artery disease) Assessment/Plan: --Prior history of a CABG. Continue ASA, metoprolol, Atorvastatin, isosorbide. (7) HTN (hypertension) Assessment/Plan: --Continue home antihypertensives. (8) Newly diagnosed diabetes Assessment/Plan: --A1c this admission was 9.4. Poorly controlled. Metformin 1000 mg BID. SSI. - Current Meds Current Meds: Current Medications Generic Name Dose Route Start Last Admin Trade Name Freq PRN Reason Stop Dose Admin Acetaminophen 650 mg 08/24/23 18:08 08/27/23 00:11 Acetaminophen 325 Mg Tablet PO 650 mg Q4HR PRN Administration Pain or Fever > 38C (100.4F) Amlodipine Besylate 10 mg 08/19/23 15:28 08/30/23 08:12 Amlodipine 5 Mg Tablet PO 10 mg DAILY BRYCE Administration Aspirin 81 mg 08/19/23 09:00 08/30/23 08:13 Aspirin Ec 81 Mg Tablet PO 81 mg DAILY BRYCE Administration Atorvastatin Calcium 40 mg 08/18/23 21:00 08/29/23 21:39 Atorvastatin 40 Mg Tablet PO 40 mg QPM BRYCE Administration Cholecalciferol 50 mcg 08/20/23 17:00 08/30/23 08:24 Cholecalciferol 25 Mcg Tablet PO 50 mcg DAILY BRYCE Administration Fluoxetine HCl 20 mg 08/19/23 09:00 08/30/23 08:11 Fluoxetine 10 Mg Capsule PO 20 mg DAILY BRYCE Administration Gabapentin 300 mg 08/18/23 21:00 08/29/23 21:39 Gabapentin 300 Mg Capsule PO 300 mg HS BRYCE Administration Insulin Human Lispro 1 - 9 unit 08/19/23 21:00 08/30/23 11:44 Insulin Lispro 300 Unit/3 Ml Pen SUBQ 1 unit 0800,1200,1700,2100 BRYCE Administration Protocol Isosorbide Mononitrate 60 mg 08/19/23 09:00 08/30/23 08:09 Isosorbide Mononitrate Er 30 Mg Tablet PO 60 mg DAILY BRYCE Administration Lactobacillus Rhamnosus 1 cap 08/24/23 10:00 08/30/23 08:08 Lactobacillus Rhamnosus Gg Capsule PO 1 cap DAILY BRYCE Administration Levofloxacin 750 mg 08/24/23 10:00 08/30/23 08:08 Levofloxacin 250 Mg Tablet PO 750 mg DAILY BRYCE Administration Levothyroxine Sodium 100 mcg 08/19/23 07:00 08/30/23 06:22 Levothyroxine 100 Mcg Tablet PO 100 mcg QDAC BRYCE Administration Metformin HCl 1,000 mg 08/24/23 17:00 08/30/23 08:09 Metformin 500 Mg Tablet PO 1,000 mg BIDWM BRYCE Administration Metoprolol Succinate 50 mg 08/19/23 15:29 08/30/23 08:22 Metoprolol Succinate 50 Mg Tablet PO 50 mg DAILY BRYCE Administration Multivitamins/Minerals 1 tab 08/21/23 08:00 08/30/23 08:11 Multivitamin W/Minerals Tablet PO 1 tab DAILYWM BRYCE Administration Oxycodone HCl 5 mg 08/18/23 17:16 08/26/23 21:29 Oxycodone 5 Mg Tablet PO 5 mg Q4HR PRN Administration Moderate Pain (Level 4-6) Polyethylene Glycol 17 gm 08/22/23 09:00 08/30/23 08:02 Polyethylene Glycol 3350 17 Gm Packet PO 17 gm DAILY BRYCE Administration Sodium Chloride 10 ml 08/18/23 13:53 08/22/23 21:58 Sodium Chloride Flush 0.9% 10 Ml Syringe IVP 10 ml PRN PRN Administration NEEDED PER PROVIDER ORDERS Sodium Chloride 10 ml 08/18/23 17:00 08/30/23 08:22 Sodium Chloride Flush 0.9% 10 Ml Syringe IVP 10 ml 0100,0900,1700 BRYCE Administration Tamsulosin HCl 0.4 mg 08/19/23 09:00 08/30/23 08:13 Tamsulosin 0.4 Mg Capsule PO 0.4 mg DAILY BRYCE Administration - Lab Result Fish Bone Diagrams: 08/23/23 05:43 08/23/23 05:43 - Additional Planning My Orders: My Active Orders 08/31/23 10:37 Albert Discontinuation [RC] ONCE Albert Insertion [RC] QSHIFT Subjective - Subjective Patient Reports: Resting Comfortably, No Complaints Objective Vital Signs: Vital Signs - 24 hr 08/29/23 08/30/23 08/30/23 15:31 00:05 08:00 Temperature 36.4 C L 36.4 C L 36.4 C L Heart Rate [ 95 92 91 Brachial] Respiratory 18 18 18 Rate Blood Pressure 126/69 121/64 133/69 H [Right Brachial artery] O2 Saturation 97 92 Oxygen O2 Source Room air I&O (Last 24 Hrs): Intake and Output Totals x24h 08/28/23 08/29/23 08/30/23 23:59 23:59 23:59 Intake Total 360 920 960 Output Total 1800 900 700 Balance -1440 20 260 General: Alert, Oriented x3, Cooperative, No acute distress Neuro: Alert, CN 2-12 Grossly Intact, Oriented Times 3 Cardiovascular: Regular rate, Normal S1, Normal S2, No murmurs Respiratory: Chest non-tender, No respiratory distress, Breath sounds nml Abdomen: Normal bowel sounds, Soft, No tenderness, No hepatospenomegaly, No masses Extremities: No clubbing, No cyanosis, No edema, Normal pulses, No tenderness/swelling - Results Results: Laboratory Results WBC 7.2 x10^3/uL (4.8-10.8) 08/23/23 05:43 RBC 3.98 10^6/uL (4.70-6.10) L 08/23/23 05:43 Hgb 11.8 g/dL (14.0-18.0) L 08/23/23 05:43 Hct 35.0 % (42.0-52.0) L 08/23/23 05:43 MCV 87.9 fL (80.0-94.0) 08/23/23 05:43 MCH 29.6 pg (27.0-31.0) 08/23/23 05:43 MCHC 33.7 g/dL (32.0-36.0) 08/23/23 05:43 RDW 12.5 % (12.0-15.0) 08/23/23 05:43 Plt Count 258 10^3/uL (130-450) 08/23/23 05:43 MPV 9.9 fL (7.4-11.4) 08/23/23 05:43 Neut # (Auto) 5.3 10^3/uL (1.5-6.6) 08/23/23 05:43 Lymph # (Auto) 0.8 10^3/uL (1.5-3.5) L 08/23/23 05:43 Bland # (Auto) 0.6 10^3/uL (0.0-1.0) 08/23/23 05:43 Eos # (Auto) 0.4 10^3/uL (0.0-0.7) 08/23/23 05:43 Baso # (Auto) 0.0 10^3/uL (0.0-0.1) 08/23/23 05:43 Absolute Nucleated RBC 0.00 x10^3/uL 08/23/23 05:43 Nucleated RBC % 0.0 /100WBC 08/23/23 05:43 Sodium 137 mmol/L (135-145) 08/23/23 05:43 Potassium 3.6 mmol/L (3.5-4.5) 08/23/23 05:43 Chloride 102 mmol/L (101-111) 08/23/23 05:43 Carbon Dioxide 28 mmol/L (21-32) 08/23/23 05:43 Anion Gap 7.0 (6-13) 08/23/23 05:43 BUN 11 mg/dL (6-20) 08/23/23 05:43 Creatinine 0.7 mg/dL (0.6-1.3) 08/23/23 05:43 Estimated GFR (MDRD) 108 (>89) 08/23/23 05:43 Glucose 157 mg/dL (74-104) H 08/23/23 05:43 POC Whole Bld Glucose 159 mg/dL (70 - 100) H 08/30/23 10:46 Estimat Average Glucose 223 mg/dL (70-100) H 08/19/23 05:30 Hemoglobin A1c % 9.4 % (4.27-6.07) H 08/19/23 05:30 Lactic Acid 2.4 mmol/L (0.5-2.2) H 08/18/23 16:47 Calcium 8.6 mg/dL (8.5-10.3) 08/23/23 05:43 Magnesium 1.8 mg/dL (1.7-2.3) 08/23/23 05:43 Total Bilirubin 1.1 mg/dL (0.2-1.0) H 08/18/23 16:47 AST 12 IU/L (10-42) 08/18/23 16:47 ALT 16 IU/L (10-60) 08/18/23 16:47 Alkaline Phosphatase 79 IU/L (42-121) 08/18/23 16:47 B-Natriuretic Peptide 77 pg/mL (5-100) 08/19/23 05:30 Total Protein 6.9 g/dL (6.4-8.9) 08/18/23 16:47 Albumin 4.0 g/dL (3.2-5.5) 08/18/23 16:47 Globulin 2.9 g/dL (2.1-4.2) 08/18/23 16:47 Albumin/Globulin Ratio 1.4 (1.0-2.2) 08/18/23 16:47 Lipase < 10 U/L (11-82) L 08/18/23 11:22 Vitamin B12 450 pg/mL (180-914) 08/22/23 05:45 TSH 4.32 uIU/mL (0.34-5.60) 08/20/23 05:26 Urine Color DARK YELLOW 08/18/23 10:38 Urine Clarity CLOUDY (CLEAR) 08/18/23 10:38 Urine pH 6.0 PH (5.0-7.5) 08/18/23 10:38 Ur Specific [place] >=1.030 (1.002-1.030) H 08/18/23 10:38 Urine Protein 100 mg/dL (NEGATIVE) H 08/18/23 10:38 Urine Glucose (UA) 500 mg/dL (NEGATIVE) H 08/18/23 10:38 Urine Ketones 15 mg/dL (NEGATIVE) H 08/18/23 10:38 Urine Occult Blood LARGE (NEGATIVE) H 08/18/23 10:38 Urine Nitrite NEGATIVE (NEGATIVE) 08/18/23 10:38 Urine Bilirubin NEGATIVE (NEGATIVE) 08/18/23 10:38 Urine Urobilinogen 4 E.U./dL (NORMAL) H 08/18/23 10:38 Ur Leukocyte Esterase TRACE (NEGATIVE) H 08/18/23 10:38 Urine RBC 11-25 /HPF (0-5) H 08/18/23 10:38 Urine WBC 11-25 /HPF (0-3) H 08/18/23 10:38 Ur Squamous Epith Cells RARE Squamous (<= Few) 08/18/23 10:38 Amorphous Sediment Moderate /LPF 08/18/23 10:38 Urine Bacteria Moderate /HPF (None Seen) H 08/18/23 10:38 Ur Microscopic Review INDICATED 08/18/23 10:38 Urine Culture Comments INDICATED 08/18/23 10:38 SARS-CoV-2 (PCR) DETECTED A 08/26/23 00:30 - Procedures Procedures: Procedures CARPAL TUNNEL RELEASE (02/24/13) CATARAC PHACOEMULS/ASPIR (06/22/14) INSERT LENS AT CATAR EXT (06/22/14) INSPECTION OF LOWER INTESTINAL TRACT, ENDO (08/25/17) TOTAL KNEE REPLACEMENT (08/05/13) Sepsis Event Note (H) - Evaluation Current Stage of Sepsis: Ruled out Current Medications - Current Medications Current Medications: Active Medications Generic Name Dose Route Start Last Admin Trade Name Freq PRN Reason Stop Dose Admin Acetaminophen 650 mg 08/24/23 18:08 08/27/23 00:11 Acetaminophen 325 Mg Tablet PO 650 mg Q4HR PRN Administration Pain or Fever > 38C (100.4F) Amlodipine Besylate 10 mg 08/19/23 15:28 08/30/23 08:12 Amlodipine 5 Mg Tablet PO 10 mg DAILY BRYCE Administration Aspirin 81 mg 08/19/23 09:00 08/30/23 08:13 Aspirin Ec 81 Mg Tablet PO 81 mg DAILY BRYCE Administration Atorvastatin Calcium 40 mg 08/18/23 21:00 08/29/23 21:39 Atorvastatin 40 Mg Tablet PO 40 mg QPM BRYCE Administration Calcium Carbonate/Glycine 500 mg 08/19/23 18:38 Calcium Carbonate Chew 500 Mg Tablet PO Q6H PRN INDIGESTION Carboxymethylcellulose 1 drops 08/24/23 00:53 Carboxymethylcellulose Ophth Drops EACHEYE PRN PRN Dry Eye Cholecalciferol 50 mcg 08/20/23 17:00 08/30/23 08:24 Cholecalciferol 25 Mcg Tablet PO 50 mcg DAILY BRYCE Administration Fluoxetine HCl 20 mg 08/19/23 09:00 08/30/23 08:11 Fluoxetine 10 Mg Capsule PO 20 mg DAILY BRYCE Administration Gabapentin 300 mg 08/18/23 21:00 08/29/23 21:39 Gabapentin 300 Mg Capsule PO 300 mg HS BRYCE Administration Insulin Human Lispro 1 - 9 unit 08/19/23 21:00 08/30/23 11:44 Insulin Lispro 300 Unit/3 Ml Pen SUBQ 1 unit 0800,1200,1700,2100 BRYCE Administration Protocol Isosorbide Mononitrate 60 mg 08/19/23 09:00 08/30/23 08:09 Isosorbide Mononitrate Er 30 Mg Tablet PO 60 mg DAILY BRYCE Administration Lactobacillus Rhamnosus 1 cap 08/24/23 10:00 08/30/23 08:08 Lactobacillus Rhamnosus Gg Capsule PO 1 cap DAILY BRYCE Administration Levofloxacin 750 mg 08/24/23 10:00 08/30/23 08:08 Levofloxacin 250 Mg Tablet PO 750 mg DAILY BRYCE Administration Levothyroxine Sodium 100 mcg 08/19/23 07:00 08/30/23 06:22 Levothyroxine 100 Mcg Tablet PO 100 mcg QDAC BRYCE Administration Metformin HCl 1,000 mg 08/24/23 17:00 08/30/23 08:09 Metformin 500 Mg Tablet PO 1,000 mg BIDWM BRYCE Administration Metoprolol Succinate 50 mg 08/19/23 15:29 08/30/23 08:22 Metoprolol Succinate 50 Mg Tablet PO 50 mg DAILY BRYCE Administration Multivitamins/Minerals 1 tab 08/21/23 08:00 08/30/23 08:11 Multivitamin W/Minerals Tablet PO 1 tab DAILYWM BRYCE Administration Oxycodone HCl 5 mg 08/18/23 17:16 08/26/23 21:29 Oxycodone 5 Mg Tablet PO 5 mg Q4HR PRN Administration Moderate Pain (Level 4-6) Pantoprazole Sodium 40 mg 08/24/23 11:06 Pantoprazole 40 Mg Tablet PO QDAC PRN Heartburn Polyethylene Glycol 17 gm 08/22/23 09:00 08/30/23 08:02 Polyethylene Glycol 3350 17 Gm Packet PO 17 gm DAILY BRYCE Administration Sodium Chloride 10 ml 08/18/23 13:53 08/22/23 21:58 Sodium Chloride Flush 0.9% 10 Ml Syringe IVP 10 ml PRN PRN Administration NEEDED PER PROVIDER ORDERS Sodium Chloride 10 ml 08/18/23 17:00 08/30/23 08:22 Sodium Chloride Flush 0.9% 10 Ml Syringe IVP 10 ml 0100,0900,1700 BRYCE Administration Tamsulosin HCl 0.4 mg 08/19/23 09:00 08/30/23 08:13 Tamsulosin 0.4 Mg Capsule PO 0.4 mg DAILY BRYCE Administration Atorvastatin Calcium 40 mg PO DAILY PM 02/19/13 Levothyroxine Sodium [Synthroid] 100 mcg PO DAILY 02/19/13 Metoprolol Succinate [Toprol Xl] 50 mg PO DAILY PM 02/19/13 Tamsulosin [Flomax] 0.4 mg PO DAILY 08/22/17 Sildenafil Citrate [Viagra] 1 tab PO PRN PRN 09/23/17 Isosorbide Mononitrate [Isosorbide Mononitrate ER] 60 mg PO DAILY 11/13/20 Multivitamin 1 tab ORAL DAILY 11/13/20 Aspirin [Pena Aspirin] 81 mg PO DAILY 07/11/23 Gabapentin [Neurontin] 300 mg PO HS 07/11/23 Amlodipine Besylate [Norvasc] 2.5 mg PO DAILY 08/18/23 Fluoxetine HCl 60 mg PO DAILY 08/18/23 Mirabegron [Myrbetriq] 25 mg PO DAILY 08/19/23
[2023-08-30] MEDS: GABAPENTIN 300 MG CAPSULE PO SCH (21:37)
[2023-08-30] MEDS: ATORVASTATIN 40 MG TABLET PO SCH (21:38)
[2023-08-31] MEDS: LEVOTHYROXINE 100 MCG TABLET PO SCH (06:20)
[2023-08-31] MEDS: ISOSORBIDE MONONITRATE ER 30 MG TABLET PO SCH (08:49)
[2023-08-31] MEDS: FLUoxetine 10 MG CAPSULE PO SCH (08:49)
[2023-08-31] MEDS: CHOLECALCIFEROL 25 MCG TABLET PO SCH (08:49)
[2023-08-31] MEDS: TAMSULOSIN 0.4 MG CAPSULE PO SCH (08:49)
[2023-08-31] MEDS: levoFLOXacin 250 MG TABLET PO SCH (08:49)
[2023-08-31] MEDS: METOPROLOL SUCCINATE 50 MG TABLET PO SCH (08:50)
[2023-08-31] MEDS: amLODIPine 5 MG TABLET PO SCH (08:50)
[2023-08-31] MEDS: metFORMIN 500 MG TABLET PO SCH ×2 (08:50→17:48)
[2023-08-31] MEDS: MULTIVITAMIN W/MINERALS TABLET PO SCH (08:50)
[2023-08-31] MEDS: ASPIRIN EC 81 MG TABLET PO SCH (08:50)
[2023-08-31] MEDS: LACTOBACILLUS RHAMNOSUS GG CAPSULE PO SCH (08:51)
[2023-08-31] MEDS: SODIUM CHLORIDE FLUSH 0.9% 10 ML SYRINGE IVP SCH ×2 (08:51→17:43)
[2023-08-31] MEDS: polyethylene glycoL 3350 17 GM PACKET PO SCH (08:51)
[2023-08-31] MEDS: INSULIN LISPRO 300 UNIT/3 ML PEN SUBQ SCH ×4 (08:51→21:01)
--- NOTE | 2023-08-31 10:58 | PROVIDER PROGRESS NOTE ---
Assessment/Plan - Problem List (1) Infection due to Enterobacter cloacae Assessment/Plan: (1) Infection due to Enterobacter cloacae Assessment/Plan: Assessment/Plan: --Continue PO Levofloxacin 750 mg daily for a 2 week course. Stop date is 09/01/23. (2) UTI (urinary tract infection) Assessment/Plan: --As above, continue levofloxacin based on most recent blood cultures. (3) Exposure to COVID-19 virus Assessment/Plan: --Returned positive for COVID-19 on 08/26. He will need to quarantine for 5 days in isolation prior to discharge to SNF. Patient denies any sx. Will monitor for respiratory distress. --Last day of isolation is 08/31. (4) General weakness Assessment/Plan: --Multifactorial: Due to UTI, hypoNa, deconditioning. He continues to work with PT/OT. He was suppose to discharge to SNF today, however COVID-19 returned positive. Anticipate 5 day isolation then discharge to SNF. (5) Chronic indwelling Albert catheter Assessment/Plan: --Continue Flomax. --Albert catheter exchange scheduled for 08/31. He has his catheter exchanged monthly. (6) CAD (coronary artery disease) Assessment/Plan: --Prior history of a CABG. Continue ASA, metoprolol, Atorvastatin, isosorbide. (7) HTN (hypertension) Assessment/Plan: --Continue home antihypertensives. (8) Newly diagnosed diabetes Assessment/Plan: --A1c this admission was 9.4. Poorly controlled. Metformin 1000 mg BID. SSI. Dispo: Hopeful for discharge tomorrow to SNF. - Current Meds Current Meds: Current Medications Generic Name Dose Route Start Last Admin Trade Name Freq PRN Reason Stop Dose Admin Acetaminophen 650 mg 08/24/23 18:08 08/27/23 00:11 Acetaminophen 325 Mg Tablet PO 650 mg Q4HR PRN Administration Pain or Fever > 38C (100.4F) Amlodipine Besylate 10 mg 08/19/23 15:28 08/31/23 08:50 Amlodipine 5 Mg Tablet PO 10 mg DAILY BRYCE Administration Aspirin 81 mg 08/19/23 09:00 08/31/23 08:50 Aspirin Ec 81 Mg Tablet PO 81 mg DAILY BRYCE Administration Atorvastatin Calcium 40 mg 08/18/23 21:00 08/30/23 21:38 Atorvastatin 40 Mg Tablet PO 40 mg QPM BRYCE Administration Cholecalciferol 50 mcg 08/20/23 17:00 08/31/23 08:49 Cholecalciferol 25 Mcg Tablet PO 50 mcg DAILY BRYCE Administration Fluoxetine HCl 20 mg 08/19/23 09:00 08/31/23 08:49 Fluoxetine 10 Mg Capsule PO 20 mg DAILY BRYCE Administration Gabapentin 300 mg 08/18/23 21:00 08/30/23 21:37 Gabapentin 300 Mg Capsule PO 300 mg HS BRYCE Administration Insulin Human Lispro 1 - 9 unit 08/19/23 21:00 08/31/23 08:51 Insulin Lispro 300 Unit/3 Ml Pen SUBQ Not Given 0800,1200,1700,2100 [facility] Protocol Isosorbide Mononitrate 60 mg 08/19/23 09:00 08/31/23 08:49 Isosorbide Mononitrate Er 30 Mg Tablet PO 60 mg DAILY BRYCE Administration Lactobacillus Rhamnosus 1 cap 08/24/23 10:00 08/31/23 08:51 Lactobacillus Rhamnosus Gg Capsule PO 1 cap DAILY BRYCE Administration Levofloxacin 750 mg 08/24/23 10:00 08/31/23 08:49 Levofloxacin 250 Mg Tablet PO 750 mg DAILY BRYCE Administration Levothyroxine Sodium 100 mcg 08/19/23 07:00 08/31/23 06:20 Levothyroxine 100 Mcg Tablet PO 100 mcg QDAC BRYCE Administration Metformin HCl 1,000 mg 08/24/23 17:00 08/31/23 08:50 Metformin 500 Mg Tablet PO 1,000 mg BIDWM BRYCE Administration Metoprolol Succinate 50 mg 08/19/23 15:29 08/31/23 08:50 Metoprolol Succinate 50 Mg Tablet PO 50 mg DAILY BRYCE Administration Multivitamins/Minerals 1 tab 08/21/23 08:00 08/31/23 08:50 Multivitamin W/Minerals Tablet PO 1 tab DAILYWM BRYCE Administration Oxycodone HCl 5 mg 08/18/23 17:16 08/26/23 21:29 Oxycodone 5 Mg Tablet PO 5 mg Q4HR PRN Administration Moderate Pain (Level 4-6) Polyethylene Glycol 17 gm 08/22/23 09:00 08/31/23 08:51 Polyethylene Glycol 3350 17 Gm Packet PO Not Given DAILY [facility] Sodium Chloride 10 ml 08/18/23 13:53 08/22/23 21:58 Sodium Chloride Flush 0.9% 10 Ml Syringe IVP 10 ml PRN PRN Administration NEEDED PER PROVIDER ORDERS Sodium Chloride 10 ml 08/18/23 17:00 08/31/23 08:51 Sodium Chloride Flush 0.9% 10 Ml Syringe IVP 10 ml 0100,0900,1700 BRYCE Administration Tamsulosin HCl 0.4 mg 08/19/23 09:00 08/31/23 08:49 Tamsulosin 0.4 Mg Capsule PO 0.4 mg DAILY BRYCE Administration - Lab Result Fish Bone Diagrams: 08/23/23 05:43 08/23/23 05:43 - Additional Planning My Orders: My Active Orders 08/31/23 10:37 Albert Discontinuation [RC] ONCE Albert Insertion [RC] QSHIFT Subjective - Subjective Patient Reports: Resting Comfortably, No Complaints Objective Vital Signs: Vital Signs - 24 hr 08/30/23 08/30/23 08/31/23 16:00 23:43 08:00 Temperature 36.4 C L 36.6 C 36.6 C Heart Rate [ 99 102 H 99 Brachial] Respiratory 18 18 18 Rate Blood Pressure 120/71 106/66 122/66 [Right Brachial artery] O2 Saturation 94 96 97 Oxygen O2 Source Room air I&O (Last 24 Hrs): Intake and Output Totals x24h 08/29/23 08/30/23 08/31/23 23:59 23:59 23:59 Intake Total 920 1200 360 Output Total 900 1050 550 Balance 20 150 -190 General: Alert, Oriented x3, Cooperative, No acute distress Neuro: Alert, CN 2-12 Grossly Intact, Oriented Times 3 Cardiovascular: Regular rate, Normal S1, Normal S2, No murmurs Respiratory: Chest non-tender, No respiratory distress, Breath sounds nml Abdomen: Normal bowel sounds, Soft, No tenderness, No hepatospenomegaly, No masses Extremities: No clubbing, No cyanosis, No edema, Normal pulses, No tender ness/swelling - Results Results: Laboratory Results WBC 7.2 x10^3/uL (4.8-10.8) 08/23/23 05:43 RBC 3.98 10^6/uL (4.70-6.10) L 08/23/23 05:43 Hgb 11.8 g/dL (14.0-18.0) L 08/23/23 05:43 Hct 35.0 % (42.0-52.0) L 08/23/23 05:43 MCV 87.9 fL (80.0-94.0) 08/23/23 05:43 MCH 29.6 pg (27.0-31.0) 08/23/23 05:43 MCHC 33.7 g/dL (32.0-36.0) 08/23/23 05:43 RDW 12.5 % (12.0-15.0) 08/23/23 05:43 Plt Count 258 10^3/uL (130-450) 08/23/23 05:43 MPV 9.9 fL (7.4-11.4) 08/23/23 05:43 Neut # (Auto) 5.3 10^3/uL (1.5-6.6) 08/23/23 05:43 Lymph # (Auto) 0.8 10^3/uL (1.5-3.5) L 08/23/23 05:43 [place] # (Auto) 0.6 10^3/uL (0.0-1.0) 08/23/23 05:43 Eos # (Auto) 0.4 10^3/uL (0.0-0.7) 08/23/23 05:43 Baso # (Auto) 0.0 10^3/uL (0.0-0.1) 08/23/23 05:43 Absolute Nucleated RBC 0.00 x10^3/uL 08/23/23 05:43 Nucleated RBC % 0.0 /100WBC 08/23/23 05:43 Sodium 137 mmol/L (135-145) 08/23/23 05:43 Potassium 3.6 mmol/L (3.5-4.5) 08/23/23 05:43 Chloride 102 mmol/L (101-111) 08/23/23 05:43 Carbon Dioxide 28 mmol/L (21-32) 08/23/23 05:43 Anion Gap 7.0 (6-13) 08/23/23 05:43 BUN 11 mg/dL (6-20) 08/23/23 05:43 Creatinine 0.7 mg/dL (0.6-1.3) 08/23/23 05:43 Estimated GFR (MDRD) 108 (>89) 08/23/23 05:43 Glucose 157 mg/dL (74-104) H 08/23/23 05:43 POC Whole Bld Glucose 131 mg/dL (70 - 100) H 08/31/23 07:57 Estimat Average Glucose 223 mg/dL (70-100) H 08/19/23 05:30 Hemoglobin A1c % 9.4 % (4.27-6.07) H 08/19/23 05:30 Lactic Acid 2.4 mmol/L (0.5-2.2) H 08/18/23 16:47 Calcium 8.6 mg/dL (8.5-10.3) 08/23/23 05:43 Magnesium 1.8 mg/dL (1.7-2.3) 08/23/23 05:43 Total Bilirubin 1.1 mg/dL (0.2-1.0) H 08/18/23 16:47 AST 12 IU/L (10-42) 08/18/23 16:47 ALT 16 IU/L (10-60) 08/18/23 16:47 Alkaline Phosphatase 79 IU/L (42-121) 08/18/23 16:47 B-Natriuretic Peptide 77 pg/mL (5-100) 08/19/23 05:30 Total Protein 6.9 g/dL (6.4-8.9) 08/18/23 16:47 Albumin 4.0 g/dL (3.2-5.5) 08/18/23 16:47 Globulin 2.9 g/dL (2.1-4.2) 08/18/23 16:47 Albumin/Globulin Ratio 1.4 (1.0-2.2) 08/18/23 16:47 Lipase < 10 U/L (11-82) L 08/18/23 11:22 Vitamin B12 450 pg/mL (180-914) 08/22/23 05:45 TSH 4.32 uIU/mL (0.34-5.60) 08/20/23 05:26 Urine Color DARK YELLOW 08/18/23 10:38 Urine Clarity CLOUDY (CLEAR) 08/18/23 10:38 Urine pH 6.0 PH (5.0-7.5) 08/18/23 10:38 Ur Specific [place] >=1.030 (1.002-1.030) H 08/18/23 10:38 Urine Protein 100 mg/dL (NEGATIVE) H 08/18/23 10:38 Urine Glucose (UA) 500 mg/dL (NEGATIVE) H 08/18/23 10:38 Urine Ketones 15 mg/dL (NEGATIVE) H 08/18/23 10:38 Urine Occult Blood LARGE (NEGATIVE) H 08/18/23 10:38 Urine Nitrite NEGATIVE (NEGATIVE) 08/18/23 10:38 Urine Bilirubin NEGATIVE (NEGATIVE) 08/18/23 10:38 Urine Urobilinogen 4 E.U./dL (NORMAL) H 08/18/23 10:38 Ur Leukocyte Esterase TRACE (NEGATIVE) H 08/18/23 10:38 Urine RBC 11-25 /HPF (0-5) H 08/18/23 10:38 Urine WBC 11-25 /HPF (0-3) H 08/18/23 10:38 Ur Squamous Epith Cells RARE Squamous (<= Few) 08/18/23 10:38 Amorphous Sediment Moderate /LPF 08/18/23 10:38 Urine Bacteria Moderate /HPF (None Seen) H 08/18/23 10:38 Ur Microscopic Review INDICATED 08/18/23 10:38 Urine Culture Comments INDICATED 08/18/23 10:38 SARS-CoV-2 (PCR) DETECTED A 08/26/23 00:30 - Procedures Procedures: Procedures CARPAL TUNNEL RELEASE (02/24/13) CATARAC PHACOEMULS/ASPIR (06/22/14) INSERT LENS AT CATAR EXT (06/22/14) INSPECTION OF LOWER INTESTINAL TRACT, ENDO (08/25/17) TOTAL KNEE REPLACEMENT (08/05/13) Sepsis Event Note (H) - Evaluation Current Stage of Sepsis: Ruled out Current Medications - Current Medications Current Medications: Patient History Medication Instructions Recorded Confirmed Atorvastatin Calcium 40 mg PO DAILY PM 02/19/13 08/18/23 Levothyroxine Sodium [Synthroid] 100 mcg PO DAILY 02/19/13 08/18/23 Metoprolol Succinate [Toprol Xl] 50 mg PO DAILY PM 02/19/13 08/18/23 Tamsulosin [Flomax] 0.4 mg PO DAILY 08/22/17 08/18/23 Sildenafil Citrate [Viagra] 1 tab PO PRN PRN 09/23/17 08/18/23 Isosorbide Mononitrate [Isosorbide 60 mg PO DAILY 11/13/20 08/18/23 Mononitrate ER] Multivitamin 1 tab ORAL DAILY 11/13/20 08/18/23 Aspirin [[place] Aspirin] 81 mg PO DAILY 07/11/23 08/18/23 Gabapentin [Neurontin] 300 mg PO HS 07/11/23 08/18/23 Amlodipine Besylate [Norvasc] 2.5 mg PO DAILY 08/18/23 08/19/23 Fluoxetine HCl 60 mg PO DAILY 08/18/23 08/19/23 Mirabegron [Myrbetriq] 25 mg PO DAILY 08/19/23 08/19/23
[2023-08-31] MEDS ORDERED: LIDOCAINE 2% URO-JET 5 ML SYRINGE UR ONE (12:59)
[2023-08-31] MEDS: GABAPENTIN 300 MG CAPSULE PO SCH (21:01)
[2023-08-31] MEDS: ATORVASTATIN 40 MG TABLET PO SCH (21:01)
[2023-08-31] MEDS: ACETAMINOPHEN 325 MG TABLET PO PRN (21:14)
[2023-09-01] MEDS: SODIUM CHLORIDE FLUSH 0.9% 10 ML SYRINGE IVP SCH ×3 (00:03→17:50)
[2023-09-01] MEDS: LEVOTHYROXINE 100 MCG TABLET PO SCH (06:13)
[2023-09-01] MEDS: INSULIN LISPRO 300 UNIT/3 ML PEN SUBQ SCH ×4 (08:33→20:57)
[2023-09-01] MEDS: polyethylene glycoL 3350 17 GM PACKET PO SCH (08:34)
[2023-09-01] MEDS: levoFLOXacin 250 MG TABLET PO SCH (08:34)
[2023-09-01] MEDS: ASPIRIN EC 81 MG TABLET PO SCH (08:35)
[2023-09-01] MEDS: CHOLECALCIFEROL 25 MCG TABLET PO SCH (08:35)
[2023-09-01] MEDS: TAMSULOSIN 0.4 MG CAPSULE PO SCH (08:35)
[2023-09-01] MEDS: METOPROLOL SUCCINATE 50 MG TABLET PO SCH (08:35)
[2023-09-01] MEDS: metFORMIN 500 MG TABLET PO SCH ×2 (08:35→17:50)
[2023-09-01] MEDS: MULTIVITAMIN W/MINERALS TABLET PO SCH (08:35)
[2023-09-01] MEDS: FLUoxetine 10 MG CAPSULE PO SCH (08:36)
[2023-09-01] MEDS: ISOSORBIDE MONONITRATE ER 30 MG TABLET PO SCH (08:37)
[2023-09-01] MEDS: amLODIPine 5 MG TABLET PO SCH (08:37)
[2023-09-01] MEDS: LACTOBACILLUS RHAMNOSUS GG CAPSULE PO SCH (08:37)
--- NOTE | 2023-09-01 11:18 | PROVIDER PROGRESS NOTE ---
Assessment/Plan - Problem List (1) Infection due to Enterobacter cloacae Assessment/Plan: (1) Infection due to Enterobacter cloacae Assessment/Plan: Assessment/Plan: --Completed 2 week course of Levofloxacin 750 mg on 09/01. (2) UTI (urinary tract infection) Assessment/Plan: --Resolved. --Albert catheter exchanged 08/31. (3) Exposure to COVID-19 virus Assessment/Plan: --Returned positive for COVID-19 on 08/26. He will need to quarantine for 5 days in isolation prior to discharge to SNF. Patient denies any sx. Will monitor for respiratory distress. --Last day of aerosol isolation is 09/05. (4) General weakness Assessment/Plan: --Multifactorial: Due to UTI, hypoNa, deconditioning. He continues to work with PT/OT. He was suppose to discharge to SNF today, however COVID-19 returned positive. Anticipate 5 day isolation then discharge to SNF. He will hopefully be discharged to SNF on 09/02. (5) Chronic indwelling Albert catheter Assessment/Plan: --Continue Flomax. --Albert catheter exchange scheduled for 08/31. He has his catheter exchanged monthly. (6) CAD (coronary artery disease) Assessment/Plan: --Prior history of a CABG. Continue ASA, metoprolol, Atorvastatin, isosorbide. (7) HTN (hypertension) Assessment/Plan: --Continue home antihypertensives. (8) Newly diagnosed diabetes Assessment/Plan: --A1c this admission was 9.4. Poorly controlled. Metformin 1000 mg BID. SSI. Dispo: Hopeful for discharge tomorrow to SNF. - Current Meds Current Meds: Current Medications Generic Name Dose Route Start Last Admin Trade Name Freq PRN Reason Stop Dose Admin Acetaminophen 650 mg 08/24/23 18:08 08/31/23 21:14 Acetaminophen 325 Mg Tablet PO 650 mg Q4HR PRN Administration Pain or Fever > 38C (100.4F) Amlodipine Besylate 10 mg 08/19/23 15:28 09/01/23 08:37 Amlodipine 5 Mg Tablet PO 10 mg DAILY BRYCE Administration Aspirin 81 mg 08/19/23 09:00 09/01/23 08:35 Aspirin Ec 81 Mg Tablet PO 81 mg DAILY BRYCE Administration Atorvastatin Calcium 40 mg 08/18/23 21:00 08/31/23 21:01 Atorvastatin 40 Mg Tablet PO 40 mg QPM BRYCE Administration Cholecalciferol 50 mcg 08/20/23 17:00 09/01/23 08:35 Cholecalciferol 25 Mcg Tablet PO 50 mcg DAILY BRYCE Administration Fluoxetine HCl 20 mg 08/19/23 09:00 09/01/23 08:36 Fluoxetine 10 Mg Capsule PO 20 mg DAILY BRYCE Administration Gabapentin 300 mg 08/18/23 21:00 08/31/23 21:01 Gabapentin 300 Mg Capsule PO 300 mg HS BRYCE Administration Insulin Human Lispro 1 - 9 unit 08/19/23 21:00 09/01/23 08:33 Insulin Lispro 300 Unit/3 Ml Pen SUBQ Not Given 0800,1200,1700,2100 [facility] Protocol Isosorbide Mononitrate 60 mg 08/19/23 09:00 09/01/23 08:37 Isosorbide Mononitrate Er 30 Mg Tablet PO 60 mg DAILY BRYCE Administration Lactobacillus Rhamnosus 1 cap 08/24/23 10:00 09/01/23 08:37 Lactobacillus Rhamnosus Gg Capsule PO 1 cap DAILY BRYCE Administration Levofloxacin 750 mg 08/24/23 10:00 09/01/23 08:34 Levofloxacin 250 Mg Tablet PO 750 mg DAILY BRYCE Administration Levothyroxine Sodium 100 mcg 08/19/23 07:00 09/01/23 06:13 Levothyroxine 100 Mcg Tablet PO 100 mcg QDAC BRYCE Administration Metformin HCl 1,000 mg 08/24/23 17:00 09/01/23 08:35 Metformin 500 Mg Tablet PO 1,000 mg BIDWM BRYCE Administration Metoprolol Succinate 50 mg 08/19/23 15:29 09/01/23 08:35 Metoprolol Succinate 50 Mg Tablet PO 50 mg DAILY BRYCE Administration Multivitamins/Minerals 1 tab 08/21/23 08:00 09/01/23 08:35 Multivitamin W/Minerals Tablet PO 1 tab DAILYWM BRYCE Administration Oxycodone HCl 5 mg 08/18/23 17:16 08/26/23 21:29 Oxycodone 5 Mg Tablet PO 5 mg Q4HR PRN Administration Moderate Pain (Level 4-6) Polyethylene Glycol 17 gm 08/22/23 09:00 09/01/23 08:34 Polyethylene Glycol 3350 17 Gm Packet PO 17 gm DAILY BRYCE Administration Sodium Chloride 10 ml 08/18/23 13:53 08/22/23 21:58 Sodium Chloride Flush 0.9% 10 Ml Syringe IVP 10 ml PRN PRN Administration NEEDED PER PROVIDER ORDERS Sodium Chloride 10 ml 08/18/23 17:00 09/01/23 08:46 Sodium Chloride Flush 0.9% 10 Ml Syringe IVP 10 ml 0100,0900,1700 BRYCE Administration Tamsulosin HCl 0.4 mg 08/19/23 09:00 09/01/23 08:35 Tamsulosin 0.4 Mg Capsule PO 0.4 mg DAILY BRYCE Administration - Lab Result Fish Bone Diagrams: 08/23/23 05:43 08/23/23 05:43 - Additional Planning My Orders: My Active Orders 08/31/23 10:37 Albert Insertion [RC] QSHIFT Subjective - Subjective Patient Reports: Feeling Better, Resting Comfortably, No Complaints Objective Vital Signs: Vital Signs - 24 hr 08/31/23 08/31/23 09/01/23 15:56 23:52 08:00 Temperature 36.3 C L 36.6 C 36.5 C Heart Rate [ 93 92 83 Brachial] Respiratory 20 19 18 Rate Blood Pressure 121/70 [Left Brachial artery] Blood Pressure 116/53 L 122/67 [Right Brachial artery] O2 Saturation 97 96 95 Oxygen O2 Source Room air I&O (Last 24 Hrs): Intake and Output Totals x24h 08/30/23 08/31/23 09/01/23 23:59 23:59 23:59 Intake Total 1200 1440 Output Total 1050 1100 350 Balance 150 340 -350 General: Alert, Oriented x3, Cooperative, No acute distress Neuro: Alert, CN 2-12 Grossly Intact, Oriented Times 3 Cardiovascular: Regular rate, Normal S1, Normal S2, No murmurs Respiratory: Chest non-tender, No respiratory distress, Breath sounds nml Abdomen: Normal bowel sounds Extremities: No clubbing, No cyanosis, No edema, Normal pulses, No tenderness/ swelling - Results Results: Laboratory Results WBC 7.2 x10^3/uL (4.8-10.8) 08/23/23 05:43 RBC 3.98 10^6/uL (4.70-6.10) L 08/23/23 05:43 Hgb 11.8 g/dL (14.0-18.0) L 08/23/23 05:43 Hct 35.0 % (42.0-52.0) L 08/23/23 05:43 MCV 87.9 fL (80.0-94.0) 08/23/23 05:43 MCH 29.6 pg (27.0-31.0) 08/23/23 05:43 MCHC 33.7 g/dL (32.0-36.0) 08/23/23 05:43 RDW 12.5 % (12.0-15.0) 08/23/23 05:43 Plt Count 258 10^3/uL (130-450) 08/23/23 05:43 MPV 9.9 fL (7.4-11.4) 08/23/23 05:43 Neut # (Auto) 5.3 10^3/uL (1.5-6.6) 08/23/23 05:43 Lymph # (Auto) 0.8 10^3/uL (1.5-3.5) L 08/23/23 05:43 [place] # (Auto) 0.6 10^3/uL (0.0-1.0) 08/23/23 05:43 Eos # (Auto) 0.4 10^3/uL (0.0-0.7) 08/23/23 05:43 Baso # (Auto) 0.0 10^3/uL (0.0-0.1) 08/23/23 05:43 Absolute Nucleated RBC 0.00 x10^3/uL 08/23/23 05:43 Nucleated RBC % 0.0 /100WBC 08/23/23 05:43 Sodium 137 mmol/L (135-145) 08/23/23 05:43 Potassium 3.6 mmol/L (3.5-4.5) 08/23/23 05:43 Chloride 102 mmol/L (101-111) 08/23/23 05:43 Carbon Dioxide 28 mmol/L (21-32) 08/23/23 05:43 Anion Gap 7.0 (6-13) 08/23/23 05:43 BUN 11 mg/dL (6-20) 08/23/23 05:43 Creatinine 0.7 mg/dL (0.6-1.3) 08/23/23 05:43 Estimated GFR (MDRD) 108 (>89) 08/23/23 05:43 Glucose 157 mg/dL (74-104) H 08/23/23 05:43 POC Whole Bld Glucose 107 mg/dL (70 - 100) H 09/01/23 08:19 Estimat Average Glucose 223 mg/dL (70-100) H 08/19/23 05:30 Hemoglobin A1c % 9.4 % (4.27-6.07) H 08/19/23 05:30 Lactic Acid 2.4 mmol/L (0.5-2.2) H 08/18/23 16:47 Calcium 8.6 mg/dL (8.5-10.3) 08/23/23 05:43 Magnesium 1.8 mg/dL (1.7-2.3) 08/23/23 05:43 Total Bilirubin 1.1 mg/dL (0.2-1.0) H 08/18/23 16:47 AST 12 IU/L (10-42) 08/18/23 16:47 ALT 16 IU/L (10-60) 08/18/23 16:47 Alkaline Phosphatase 79 IU/L (42-121) 08/18/23 16:47 B-Natriuretic Peptide 77 pg/mL (5-100) 08/19/23 05:30 Total Protein 6.9 g/dL (6.4-8.9) 08/18/23 16:47 Albumin 4.0 g/dL (3.2-5.5) 08/18/23 16:47 Globulin 2.9 g/dL (2.1-4.2) 08/18/23 16:47 Albumin/Globulin Ratio 1.4 (1.0-2.2) 08/18/23 16:47 Lipase < 10 U/L (11-82) L 08/18/23 11:22 Vitamin B12 450 pg/mL (180-914) 08/22/23 05:45 TSH 4.32 uIU/mL (0.34-5.60) 08/20/23 05:26 Urine Color DARK YELLOW 08/18/23 10:38 Urine Clarity CLOUDY (CLEAR) 08/18/23 10:38 Urine pH 6.0 PH (5.0-7.5) 08/18/23 10:38 Ur Specific Pony >=1.030 (1.002-1.030) H 08/18/23 10:38 Urine Protein 100 mg/dL (NEGATIVE) H 08/18/23 10:38 Urine Glucose (UA) 500 mg/dL (NEGATIVE) H 08/18/23 10:38 Urine Ketones 15 mg/dL (NEGATIVE) H 08/18/23 10:38 Urine Occult Blood LARGE (NEGATIVE) H 08/18/23 10:38 Urine Nitrite NEGATIVE (NEGATIVE) 08/18/23 10:38 Urine Bilirubin NEGATIVE (NEGATIVE) 08/18/23 10:38 Urine Urobilinogen 4 E.U./dL (NORMAL) H 08/18/23 10:38 Ur Leukocyte Esterase TRACE (NEGATIVE) H 08/18/23 10:38 Urine RBC 11-25 /HPF (0-5) H 08/18/23 10:38 Urine WBC 11-25 /HPF (0-3) H 08/18/23 10:38 Ur Squamous Epith Cells RARE Squamous (<= Few) 08/18/23 10:38 Amorphous Sediment Moderate /LPF 08/18/23 10:38 Urine Bacteria Moderate /HPF (None Seen) H 08/18/23 10:38 Ur Microscopic Review INDICATED 08/18/23 10:38 Urine Culture Comments INDICATED 08/18/23 10:38 SARS-CoV-2 (PCR) DETECTED A 08/26/23 00:30 - Procedures Procedures: Procedures CARPAL TUNNEL RELEASE (02/24/13) CATARAC PHACOEMULS/ASPIR (06/22/14) INSERT LENS AT CATAR EXT (06/22/14) INSPECTION OF LOWER INTESTINAL TRACT, ENDO (08/25/17) TOTAL KNEE REPLACEMENT (08/05/13) Sepsis Event Note (H) - Evaluation Current Stage of Sepsis: Ruled out Current Medications - Current Medications Current Medications: Active Medications Generic Name Dose Route Start Last Admin Trade Name Freq PRN Reason Stop Dose Admin Acetaminophen 650 mg 08/24/23 18:08 08/31/23 21:14 Acetaminophen 325 Mg Tablet PO 650 mg Q4HR PRN Administration Pain or Fever > 38C (100.4F) Amlodipine Besylate 10 mg 08/19/23 15:28 09/01/23 08:37 Amlodipine 5 Mg Tablet PO 10 mg DAILY BRYCE Administration Aspirin 81 mg 08/19/23 09:00 09/01/23 08:35 Aspirin Ec 81 Mg Tablet PO 81 mg DAILY BRYCE Administration Atorvastatin Calcium 40 mg 08/18/23 21:00 08/31/23 21:01 Atorvastatin 40 Mg Tablet PO 40 mg QPM BRYCE Administration Calcium Carbonate/Glycine 500 mg 08/19/23 18:38 Calcium Carbonate Chew 500 Mg Tablet PO Q6H PRN INDIGESTION Carboxymethylcellulose 1 drops 08/24/23 00:53 Carboxymethylcellulose Ophth Drops EACHEYE PRN PRN Dry Eye Cholecalciferol 50 mcg 08/20/23 17:00 09/01/23 08:35 Cholecalciferol 25 Mcg Tablet PO 50 mcg DAILY BRYCE Administration Fluoxetine HCl 20 mg 08/19/23 09:00 09/01/23 08:36 Fluoxetine 10 Mg Capsule PO 20 mg DAILY BRYCE Administration Gabapentin 300 mg 08/18/23 21:00 08/31/23 21:01 Gabapentin 300 Mg Capsule PO 300 mg HS [facility] Administration Insulin Human Lispro 1 - 9 unit 08/19/23 21:00 09/01/23 08:33 Insulin Lispro 300 Unit/3 Ml Pen SUBQ Not Given 0800,1200,1700,2100 [facility] Protocol Isosorbide Mononitrate 60 mg 08/19/23 09:00 09/01/23 08:37 Isosorbide Mononitrate Er 30 Mg Tablet PO 60 mg DAILY BRYCE Administration Lactobacillus Rhamnosus 1 cap 08/24/23 10:00 09/01/23 08:37 Lactobacillus Rhamnosus Gg Capsule PO 1 cap DAILY [facility] Administration Levofloxacin 750 mg 08/24/23 10:00 09/01/23 08:34 Levofloxacin 250 Mg Tablet PO 750 mg DAILY BRYCE Administration Levothyroxine Sodium 100 mcg 08/19/23 07:00 09/01/23 06:13 Levothyroxine 100 Mcg Tablet PO 100 mcg QDAC [facility] Administration Metformin HCl 1,000 mg 08/24/23 17:00 09/01/23 08:35 Metformin 500 Mg Tablet PO 1,000 mg BIDWM BRYCE Administration Metoprolol Succinate 50 mg 08/19/23 15:29 09/01/23 08:35 Metoprolol Succinate 50 Mg Tablet PO 50 mg DAILY BRYCE Administration Multivitamins/Minerals 1 tab 08/21/23 08:00 09/01/23 08:35 Multivitamin W/Minerals Tablet PO 1 tab DAILYWM BRYCE Administration Oxycodone HCl 5 mg 08/18/23 17:16 08/26/23 21:29 Oxycodone 5 Mg Tablet PO 5 mg Q4HR PRN Administration Moderate Pain (Level 4-6) Pantoprazole Sodium 40 mg 08/24/23 11:06 Pantoprazole 40 Mg Tablet PO QDAC PRN Heartburn Polyethylene Glycol 17 gm 08/22/23 09:00 09/01/23 08:34 Polyethylene Glycol 3350 17 Gm Packet PO 17 gm DAILY BRYCE Administration Sodium Chloride 10 ml 08/18/23 13:53 08/22/23 21:58 Sodium Chloride Flush 0.9% 10 Ml Syringe IVP 10 ml PRN PRN Administration NEEDED PER PROVIDER ORDERS Sodium Chloride 10 ml 08/18/23 17:00 09/01/23 08:46 Sodium Chloride Flush 0.9% 10 Ml Syringe IVP 10 ml 0100,0900,1700 BRYCE Administration Tamsulosin HCl 0.4 mg 08/19/23 09:00 09/01/23 08:35 Tamsulosin 0.4 Mg Capsule PO 0.4 mg DAILY BRYCE Administration Atorvastatin Calcium 40 mg PO DAILY PM 02/19/13 Levothyroxine Sodium [Synthroid] 100 mcg PO DAILY 02/19/13 Metoprolol Succinate [Toprol Xl] 50 mg PO DAILY PM 02/19/13 Tamsulosin [Flomax] 0.4 mg PO DAILY 08/22/17 Sildenafil Citrate [Viagra] 1 tab PO PRN PRN 09/23/17 Isosorbide Mononitrate [Isosorbide Mononitrate ER] 60 mg PO DAILY 11/13/20 Multivitamin 1 tab ORAL DAILY 11/13/20 Aspirin [[place] Aspirin] 81 mg PO DAILY 07/11/23 Gabapentin [Neurontin] 300 mg PO HS 07/11/23 Amlodipine Besylate [Norvasc] 2.5 mg PO DAILY 08/18/23 Fluoxetine HCl 60 mg PO DAILY 08/18/23 Mirabegron [Myrbetriq] 25 mg PO DAILY 08/19/23
[2023-09-01] MEDS: GABAPENTIN 300 MG CAPSULE PO SCH (20:54)
[2023-09-01] MEDS: ATORVASTATIN 40 MG TABLET PO SCH (20:54)
[2023-09-02] MEDS: SODIUM CHLORIDE FLUSH 0.9% 10 ML SYRINGE IVP SCH ×2 (01:18→09:55)
[2023-09-02] MEDS: LEVOTHYROXINE 100 MCG TABLET PO SCH (05:57)
[2023-09-02] MEDS: INSULIN LISPRO 300 UNIT/3 ML PEN SUBQ SCH (09:13)
[2023-09-02] MEDS: ISOSORBIDE MONONITRATE ER 30 MG TABLET PO SCH (09:20)
[2023-09-02] MEDS: MULTIVITAMIN W/MINERALS TABLET PO SCH (09:20)
[2023-09-02] MEDS: CHOLECALCIFEROL 25 MCG TABLET PO SCH (09:20)
[2023-09-02] MEDS: ASPIRIN EC 81 MG TABLET PO SCH (09:21)
[2023-09-02] MEDS: FLUoxetine 10 MG CAPSULE PO SCH (09:21)
[2023-09-02] MEDS: LACTOBACILLUS RHAMNOSUS GG CAPSULE PO SCH (09:21)
[2023-09-02] MEDS: metFORMIN 500 MG TABLET PO SCH (09:22)
[2023-09-02] MEDS: TAMSULOSIN 0.4 MG CAPSULE PO SCH (09:22)
[2023-09-02] MEDS: polyethylene glycoL 3350 17 GM PACKET PO SCH (09:28)
[2023-09-02] MEDS: METOPROLOL SUCCINATE 50 MG TABLET PO SCH (09:29)
[2023-09-02] MEDS: amLODIPine 5 MG TABLET PO SCH (09:29)
--- NOTE | 2023-09-02 11:24 | Discharge Plan ---
"Discharge Plan for SNF / [facility] - Discharge Plan And Transition Orders Problem Reviewed?: Yes Disposition: 03 SNF DC/Xfer Condition: Fair Allergies and Adverse Reactions: Allergies Allergy/AdvReac Type Severity Reaction Status Date / Time No Known Drug Allergies Allergy Verified 08/18/23 10:26 Health Concerns: Patient has a chronic indwelling Albert and was hospitalized for a UTI, he finished his course of antibiotic treatment. We found him to be a newly diagnosed diabetic with A1c result of 9.4. He was on sliding scale insulin. We then transitioned him over to, and he is stable on, just Metformin BID with meals treatment and a diabetic diet. Plan of Treatment: Daily PT and OT for strengthening Continue medications. Care Goals: Improvement in symptoms and stabilization are the goals. Assessment: Patient and understand and are agreeable with the plan. - SNF / [facility] Transition Orders Admit to (Facility): [facility] Under the care of (Name): [facility] Discharge Diagnosis: (1) UTI (urinary tract infection) Competed antibiotics (2) Infection due to Enterobacter cloacae Competed antibiotics (3) Exposure to COVID-19 virus He tested pos, but showed no symptoms. He was in isolation until the requisite time. (4) Newly diagnosed diabetes He was on Insulin, now transitioned over to just Metformin (5) General weakness Improving with PT and OT (6) Chronic indwelling Albert Stable (7) CAD Stable (8) HTN Stable (9) Depression Stable (10) Hypothyroidism Stable (11) DORIS on CPAP Stable (12) Hyponatremia Resolved (13) Hypomagnesemia Resolved (14) Odynophagia Resolved on Protonix and a course of oral Nystatin Medicare Certification Statement: I certify that [facility] is medically necessary on a continuing basis for any of the conditions for which she/he is receiving care during hospitalization. Notify PCP of admission and forward orders to primary provider for signature. Weight on admission and: Weekly Call PCP immediately if weight increases by: 5 kg Other Notification Orders: Call PCP immediately if patient develops dyspnea, chest pain/tightness or edema. House Bowel Program: Yes Additional Bowel Program Orders: If no BM after 2 days, nurse may give M.O.M. 30ml PO PRN and/or ducolax Supp 1 [place] and/or MINEHS 250mg P.O., and/or senna 1-2 tabs PO. On day 3 nurse may give repeat above order until residents constipation is resolved. Annual Influenza Vaccine (between Jun 20 and January 17): Yes Two-step PPD per [facility] [id number] or approved exception documents: Yes Treatments & Other Orders: Daily PT and OT. Albert care as per facility protocol Medication Orders: PLEASE REFER TO THE DISCHARGE MEDICATION LIST. Insulin Orders?: No - Medications New Prescriptions: Atorvastatin Calcium 40 mg PO QPM #30 tablet Metformin HCl [Metformin ER Gastric] 1,000 mg PO 0800,1700 #60 tab amLODIPine [Norvasc] 5 mg PO DAILY #30 tab Pantoprazole [Protonix] 40 mg PO QDAC PRN #30 tab PRN Reason: Heartburn Fluoxetine HCl [Prozac] 20 mg PO DAILY #30 cap Metoprolol Succinate [Toprol Xl] 50 mg PO DAILY #30 tab Cholecalciferol (Vitamin D3) [Vitamin D3] 1,250 mcg PO DAILY #30 tab - Diet Type: No added sugar (Diabetic diet) Texture: Regular Liquids: Thin May have monthly special meal: Yes - Therapies | Activity Therapy: Evaluation | Treat if indicated: PT, OT Rehabilitation Potential: Maximize functional status Weight Bearing: Full Weight Assistance Devices: Walker Follow Up: See PCP after discharge from SNF."
[2023-09-02 11:45] VITALS: BP 125/64; O2SAT 96
--- NOTE | 2023-09-02 11:48 | DISCHARGE SUMMARY ---
Discharge Summary Admit Date: 08/18/23 Discharge Date: 09/02/23 Discharging Provider: Dr Lou Olivo Primary Care Provider: aydee [facility] Condition at Discharge: Fair Discharge Disposition: 03 SNF DC/Xfer - HPI History of Present Illness: A 83yo M with hx CAD s/p CABG (5 yrs ago), HTN, Sleep apnea on CPAP, chronic back pain s/p 5 surgeries, chronic Albert for urinary retention, bedboud/wheelchair bound Brought in by EMS with CC of AMS, worsening weakness. Patient has been so weak for a while, noted worsening in the past two weeks, reports usually he needs her and the Home Health Aide to help patient move from bed to chair, he becomes so weak, has no core muscle strength. Both legs have no strength. Patient had MRI in the past couple of month and had back specialist who has been doing back injection for him. However the weakness and wheelchair-bound status had no improvement. Patient was brought in today due to altered mental status noted by his . Per his patient usually quite awake alert and orientated, today in the morning he was not making sense which prompted the ED visit. In the ED, vitals were stable with elevated blood pressure 158/80s. Labs significant with WBC 16, lactic acid 2.5. Sodium 130, magnesium 1.5. UA shows sign of infection. Patient was given IV fluid and ceftriaxone in the ED. He also has a serum glu of 416, but is not a known diabetic. He is admitted to Inpatient status. - HOSPITAL COURSE Hospital Course: (1) UTI (urinary tract infection) Completed a 2 week course of Levofloxacin 750 mg on 09/01/23. Albert was changed (2) Infection due to Enterobacter cloacae His urine culture grew Enterobacter. (3) Exposure to COVID-19 virus He tested pos on 08/26/23, but showed no symptoms. he needed no antivirals. He was in isolation while here until the requisite time prior to discharge to SNF. Last day of aerosol isolation is 09/05/23. (4) Newly diagnosed diabetes His A1c came back at 9.4. He was treated with a diabetic diet and Insulin. That was transitioned over to just Metformin, which had his glu running 100-150. (5) General weakness Due to UTI, hypohatremia, and deconditioning. Improved with PT and OT and discharged to SNF for more rehab. (6) Chronic indwelling Albert Albert was changed on 08/31/23. He has his catheter exchanged monthly. We continued his Flomax. (7) CAD Prior history of a CABG. We continued his ASA, metoprolol, Atorvastatin, isosorbide. (8) HTN Stable on meds (9) Depression Stable on meds (10) Hypothyroidism His TSH was stable at . We continued his meds. (11) DORIS on CPAP he used his home CPAP device while here. (12) Hyponatremia Resolved with iv saline hydration (13) Hypomagnesemia Resolved with replacement (14) Odynophagia Resolved on Protonix and a course of oral Nystatin, given empirically for probable esophageal thrush is a Diabetic. - ALLERGIES Allergies/Adverse Reactions: Allergies Allergy/AdvReac Type Severity Reaction Status Date / Time No Known Drug Allergies Allergy Verified 08/18/23 10:26 - MEDICATIONS Home Medications: Ambulatory Orders Medication Instructions Recorded Confirmed Levothyroxine Sodium [Synthroid] 100 mcg PO DAILY 02/19/13 08/18/23 Tamsulosin [Flomax] 0.4 mg PO DAILY 08/22/17 08/18/23 Isosorbide Mononitrate [Isosorbide 60 mg PO DAILY 11/13/20 08/18/23 Mononitrate ER] Multivitamin 1 tab ORAL DAILY 11/13/20 08/18/23 Aspirin [[place] Aspirin] 81 mg PO DAILY 07/11/23 08/18/23 Gabapentin [Neurontin] 300 mg PO HS 07/11/23 08/18/23 HYDROcod/ACETAM 5/325 [[place] 5/325] 1 - 2 tablet PO Q6H PRN #14 tablet 07/11/23 08/18/23 Mirabegron [Myrbetriq] 25 mg PO DAILY 08/19/23 08/19/23 Acetaminophen [Tylenol] 650 mg PO Q4HR PRN tab 09/02/23 Atorvastatin Calcium 40 mg PO QPM #30 tablet 09/02/23 Cholecalciferol (Vitamin D3) 1,250 mcg PO DAILY #30 tab 09/02/23 [Vitamin D3] Fluoxetine HCl [Prozac] 20 mg PO DAILY #30 cap 09/02/23 Metformin HCl [Metformin ER 1,000 mg PO 0800,1700 #60 tab 09/02/23 Gastric] Metoprolol Succinate [Toprol Xl] 50 mg PO DAILY #30 tab 09/02/23 Pantoprazole [Protonix] 40 mg PO QDAC PRN #30 tab 09/02/23 amLODIPine [Norvasc] 5 mg PO DAILY #30 tab 09/02/23 - PHYSICAL EXAM AT DISCHARGE General Appearance: positive: No acute distress, Alert, Other (Obese) Eyes Bilateral: positive: Normal inspection, EOMI ENT: positive: ENT inspection nml, No signs of dehydration Neck: positive: Nml inspection, No JVD Respiratory: positive: No respiratory distress, Breath sounds nml Cardiovascular: positive: Regular rate & rhythm, No murmur Abdomen: positive: Non-tender, Nml bowel sounds, Other (Obese) Rectal: positive: Other (Albert in place) Skin: positive: Warm, Dry Extremities: positive: Non-tender, No pedal edema Neurologic/Psychiatric: positive: Oriented x3, Motor nml - LABS Result Diagrams: 08/23/23 05:43 08/23/23 05:43 - DIAGNOSTIC IMAGING Diagnostic Imaging Results: Final report reviewed - SEPSIS Current Stage of Sepsis: Ruled out - FOLLOW UP Follow Up: See PCP after discharge from SNF. - TIME SPENT Time Spent in Discharge (Minutes): 45
== END 2023-09-02 12:38 | DRG 689 ==
LOC: EDUNIT# → ED 10:15 → MS3 14:23 → UNDOADMIN 14:40 → MS2 15:09
PROVIDERS: ADMIT Internal Medicine; ATTEND Internal Medicine
DX: N39.0 Urinary tract infection, site not specified (principal); G93.41 Metabolic encephalopathy; M54.9 Dorsalgia, unspecified; U07.1 COVID-19; R41.0 Disorientation, unspecified; R26.2 Difficulty in walking, not elsewhere classified; E87.1 Hypo-osmolality and hyponatremia; B37.81 Candidal esophagitis; B96.89 Other specified bacterial agents as the cause of diseases classified elsewhere; I10 Essential (primary) hypertension; G89.29 Other chronic pain; Z74.01 Bed confinement status; Z99.3 Dependence on wheelchair; R33.9 Retention of urine, unspecified; R53.1 Weakness; I25.10 Atherosclerotic heart disease of native coronary artery without angina pectoris; Z95.1 Presence of aortocoronary bypass graft; F32.A Depression, unspecified; E03.9 Hypothyroidism, unspecified; G47.33 Obstructive sleep apnea (adult) (pediatric); E83.42 Hypomagnesemia; R13.10 Dysphagia, unspecified; E66.9 Obesity, unspecified; Z68.35 Body mass index [BMI] 35.0-35.9, adult; E11.65 Type 2 diabetes mellitus with hyperglycemia; Z96.0 Presence of urogenital implants; Z20.822 Contact with and (suspected) exposure to COVID-19
CPT/HCPCS: 36415; 80048; 80053; 81001; 82607; 83036; 83605; 83690; 83735; 83880; 84443; 85025; 85027; 87040; 87077; 87086; 87181; 87635; 96365; 96375; 97116; 97162; 97167; 97530; 97535; 99284; 99285; A9270; J1170; J1815; 81003

== ENCOUNTER 2024-03-14 20:03 | Outpatient (CLI) | payer MEDICARE | END 2024-03-14 20:04 | disposition critical access hospital (66) | LOC: EMS 20:03 | DX: M54.2 Cervicalgia (principal); M79.622 Pain in left upper arm; R51.9 Headache, unspecified | CPT/HCPCS: A0425; A0429 ==

== ENCOUNTER 2024-03-14 20:29 | Emergency (ER) | payer MEDICARE ==
--- NOTE | 2024-03-14 20:55 | ED Physician Documentation ---
History of Present Illness - Stated complaint Stated Complaint: LT ARM PX - Chief complaint Chief Complaint: General - History obtained from History obtained from: Patient - Additonal information Additional information: BIBA. Patient complains of left arm pain, gradual onset approximately 2 hours ago without inciting event. He says throughout the day since this morning, he has had posterior neck pain, predominantly left-sided, and a global headache. The only exacerbating factor is some (partial) degree of exacerbation of the left arm pain at the shoulder with movement; no other exacerbating factors. There are no ameliorating factors. Denies chest pain. Denies fever, cough, dyspnea. Review of Systems Constitutional: denies: Fever PD PAST MEDICAL HISTORY - Past Medical History Cardiovascular: Hypertension, High cholesterol, Coronary artery disease Respiratory: Sleep apnea, CPAP use Neuro: CVA Endocrine/Autoimmune: HyPOthyroidism GI: GI bleed : None HEENT: None Psych: None Musculoskeletal: Chronic back pain Derm: None - Past Surgical History Past Surgical History: Yes General: Colonoscopy, Other Ortho: Knee replacement, Spine surgery Cardiovascular: CABG, Cardiac catheterization Neuro: Other - Present Medications Home Medications: Ambulatory Orders Medication Instructions Recorded Confirmed Levothyroxine Sodium [Synthroid] 100 mcg PO DAILY 02/19/13 03/14/24 Tamsulosin [Flomax] 0.4 mg PO DAILY 08/22/17 03/14/24 Isosorbide Mononitrate [Isosorbide 60 mg PO DAILY 11/13/20 03/14/24 Mononitrate ER] Multivitamin 1 tab ORAL DAILY 11/13/20 03/14/24 Aspirin [[place] Aspirin] 81 mg PO DAILY 07/11/23 03/14/24 Atorvastatin Calcium 40 mg PO QPM #30 tablet 09/02/23 03/14/24 Metoprolol Succinate [Toprol Xl] 50 mg PO DAILY #30 tab 09/02/23 03/14/24 Acetaminophen [Tylenol] 500 mg PO Q4-6H PRN 03/14/24 03/14/24 Fluoxetine HCl [Prozac] 60 mg PO DAILY 03/14/24 03/14/24 Nitroglycerin [Nitrostat] 0.4 mg SL [id number] 03/14/24 03/14/24 amLODIPine [Norvasc] 2.5 mg PO DAILY 03/14/24 03/14/24 metFORMIN [Glucophage] 500 mg PO BIDWM 03/14/24 03/14/24 - Allergies Allergies/Adverse Reactions: Allergies Allergy/AdvReac Type Severity Reaction Status Date / Time No Known Drug Allergies Allergy Verified 08/18/23 10:26 - Social History Does the pt smoke?: No Smoking Status: Never smoker Does the pt drink ETOH?: No Does the pt have substance abuse?: No - Immunizations Immunizations are current?: Yes - POLST Patient has POLST: No PD ED PE NORMAL - Vitals Vital signs reviewed: Yes - General General: Alert and oriented X 3, No acute distress, Well developed/nourished - Cardiac Cardiac: RRR, No murmur, No gallop, No rub - Respiratory Respiratory: No respiratory distress, Clear bilaterally - Abdomen Abdomen: Soft, Non tender - Extremities Extremities: No edema, Other (FROM LUE but patient reports partial exacerbation of LUE pain with full extension and/or abduction at left shoulder) Results - Vitals Vitals: Oxygen O2 Source Room air - EKG (time done) No standard instances EKG releavant findings:: EKG personally interpreted by author of this note. Relevant findings are: Rate: Rate (enter#) (52) [place]: Normal Intervals: Normal OK QRS: Normal Ischemia: Normal ST segments, Other (rR' V1) - Labs Labs: Laboratory Tests 03/14/24 03/14/24 21:14 21:14 WBC 9.9 RBC 4.30 L Hgb 12.8 L Hct 38.1 L MCV 88.6 MCH 29.8 MCHC 33.6 RDW 13.4 Plt Count 231 MPV 10.4 Neut # (Auto) 7.3 H Lymph # (Auto) 1.5 [place] # (Auto) 0.8 Eos # (Auto) 0.4 Baso # (Auto) 0.0 Absolute Nucleated RBC 0.00 Nucleated RBC % 0.0 Sodium 137 Potassium 3.9 Chloride 104 Carbon Dioxide 26 Anion Gap 7.0 BUN 18 Creatinine 0.9 Estimated GFR (MDRD) 81 L Glucose 118 H Calcium 9.3 Troponin I High Sens 3.5 - Rads (name of study) chest xray Relevant Findings:: Prelim report reviewed, See rad report PD Medical Decision Making - ED course Complexity details: reviewed results, re-evaluated patient, considered differential, d/w patient, d/w family ED course: No concerning nor diagnostic findings on EKG, blood tests including hs-cTn. CXR also without acute or concerning finding(s). Cause of patient's symptoms is not apparent at this time. Results reviewed with patient along with lack of diagnosis at this time; instructed patient to see PCP as soon as can be arranged for next available appointment for follow up/re evaluation Departure - Departure Disposition: 01 Home, Self Care Clinical Impression: Arm pain, left Headache Qualifiers: Headache type: unspecified Headache chronicity pattern: acute headache Intractability: not intractable Qualified Code(s): R51.9 - Headache, unspecified Condition: Good Instructions: ED Chest Pain Atypical Unkn Cause, ED Cephalgia Unspecified Follow-Up: OMAR GARCIA MD [Primary Care Provider] - Comments: There were no concerning nor diagnostic findings on tonight's tests, including the EKG, chest x-ray, and the blood tests (which included a cardiac enzyme blood test called troponin). The cause of your symptoms is not apparent at this time. Contact your primary care provider's office when they are next open to arrange for the next available appointment for follow-up/reevaluation. Forms: PCP List Discharge Date/Time: 03/14/24 23:55
[2024-03-14 21:19] LABS: BASOPHILS % (AUTO) 0.3 %; EOSINOPHILS # (AUTO) 0.4 10^3/uL (0.0-0.7); EOSINOPHILS % (AUTO) 3.5 %; HCT - HEMATOCRIT 38.1 % (42.0-52.0); HGB - HEMOGLOBIN 12.8 g/dL (14.0-18.0); LYMPHOCYTES # (AUTO) 1.5 10^3/uL (1.5-3.5); LYMPHOCYTES % (AUTO) 14.8 %; MEAN CORPUSCULAR HEMOGLOBIN 29.8 pg (27.0-31.0); MEAN CORPUSCULAR HGB CONC 33.6 g/dL (32.0-36.0); MEAN CORPUSCULAR VOLUME 88.6 fL (80.0-94.0); MEAN PLATELET VOLUME 10.4 fL (7.4-11.4); MONOCYTES # (AUTO) 0.8 10^3/uL (0.0-1.0); MONOCYTES % (AUTO) 7.9 %; NEUTROPHILS # (AUTO) 7.3 10^3/uL (1.5-6.6); NEUTROPHILS % (AUTO) 73.2 %; PLT - PLATELET COUNT 231 10^3/uL (130-450); RED CELL DISTRIBUTION WIDTH 13.4 % (12.0-15.0); WHITE BLOOD COUNT 9.9 x10^3/uL (4.8-10.8)
[2024-03-14 21:37] LABS: CALCIUM 9.3 mg/dL (8.5-10.3); CREATININE 0.9 mg/dL (0.6-1.3); POTASSIUM 3.9 mmol/L (3.5-4.5)
[2024-03-14 21:41] LABS: TROPONIN I HIGH SENSITIVITY 3.5 ng/L (2.3-19.7)
--- NOTE | 2024-03-14 22:51 | XRAY Report ---
PROCEDURE: Chest 2V INDICATIONS: LUE pain radiating to neck TECHNIQUE: 2 views of the chest were acquired. COMPARISON: 09/23/2017. FINDINGS: Surgical changes and devices: . Surgical changes are seen in cervical spine. Median sternotomy wires are seen. Stimulator leads are noted in the region of mid thoracic spine. Lungs and pleura: No pleural effusions or pneumothorax. Lungs are clear. Mediastinum: Mediastinal contours appear normal. Heart size is enlarged. Bones and chest wall: No suspicious bony lesions. Overlying soft tissues appear unremarkable. IMPRESSION: No acute cardiopulmonary process. Reviewed by: Eric Vidal MD on 03/14/2024 10:50 PM PDT Approved by: Eric Vidal MD on 03/14/2024 10:50 PM PDT Station ID: [id number]
[2024-03-15 00:03] VITALS: BP 123/69; O2SAT 96
== END 2024-03-14 23:55 | disposition home or self-care (01) ==
LOC: EDUNIT# → ED 20:29
DX: M79.602 Pain in left arm (principal); R51.9 Headache, unspecified; I10 Essential (primary) hypertension; E78.00 Pure hypercholesterolemia, unspecified; I25.10 Atherosclerotic heart disease of native coronary artery without angina pectoris; G47.30 Sleep apnea, unspecified; Z95.1 Presence of aortocoronary bypass graft; E03.9 Hypothyroidism, unspecified
CPT/HCPCS: 36415; 80048; 84484; 85025; 93005; 99284

== ENCOUNTER 2024-03-25 20:18 | Outpatient (CLI) | payer MEDICARE | END 2024-03-25 23:59 | disposition EMS.NT | LOC: EMS 20:18 | DX: Z03.89 Encounter for observation for other suspected diseases and conditions ruled out (principal) ==